=== PATIENT | male | born 1970 | race Caucasian/White ===

== ENCOUNTER 2021-12-24 05:46 | Day surgery (SDC) | payer BC, OTHER ==
[2021-12-24] MEDS ORDERED: Ringers Lactate 1,000 ML IV ONE (06:05)
[2021-12-24] MEDS ORDERED: Phenylephrine HCl 10 MG/ML 1 ML VIAL ONE (06:17)
[2021-12-24] MEDS ORDERED: GLYCOPYRROLATE 0.2 MG/ML SYR ONE (06:23)
[2021-12-24] MEDS: LIDOCAINE 4% TOP SOLUTION ONE ×2 (07:15→07:50)
[2021-12-24] MEDS ORDERED: LIDOCAINE VISCOUS 2% SOLN 15 ML UDC ONE (07:49)
[2021-12-24] MEDS ORDERED: LIDOCAINE 1% MPF 30 ML VIAL ONE (07:50)
[2021-12-24 08:12] VITALS: TEMP 97.4
--- NOTE | 2021-12-24 08:30 | P.OP ---
Date of Service: 12/24/21 (Diagnostic bronchoscopy for hemoptysis) Findings and Operative Technique Patient is a 51 years of age evaluated my office complaining chest x-ray did not show any lung mass hence the reason for bronchoscopy narrative report after obtaining informed consent from the patient he was premedicated as per anesthesia Findings normal vocal cords normal trachea normal [place] normal endobronchial anatomy no endobronchial lesions visible fact there was no blood visible in his entire respiratory tract none seen at the vocal cords are in the nasal area is likely he has had GI bleeding Discussed with the patient he is scheduled to see GI physician as soon as possible his paperwork has been completed no procedures have been done patient stable to be discharged
[2021-12-24 09:27] VITALS: BP 121/77; O2SAT 99
[2021-12-24] MEDS ORDERED: propofoL 200 MG/20 ML VIAL IV ONE ×2 (10:49)
[2021-12-24] MEDS ORDERED: MIDAZOLAM HCL 2 MG/2 ML INJ ONE (10:49)
[2021-12-24] MEDS ORDERED: LIDOCAINE 1% MPF 5 ML VIAL ONE (10:49)
[2021-12-24] MEDS ORDERED: FENTANYL CITR 100 MCG/2 ML ONE (10:49)
== END 2021-12-24 09:00 | disposition home or self-care (01) ==
LOC: OR 05:46
PROVIDERS: ATTEND Internal Medicine Sleep Medicine
PROC: 0BJ08ZZ Inspection of Tracheobronchial Tree, Via Natural or Artificial Opening Endoscopic (ICD-10-PCS; principal; 2021-12-24 08:00)
DX: R04.2 Hemoptysis (principal); I25.10 Atherosclerotic heart disease of native coronary artery without angina pectoris; Z20.822 Contact with and (suspected) exposure to COVID-19
CPT/HCPCS: 31622; U0003; J2704; J2370; J2250; J3010; J7120

== ENCOUNTER 2022-07-26 07:36 | Emergency (ER) | payer BC ==
--- OUTSIDE RECORDS SUMMARY | 2022-07-26 07:52 | XMS REPORT | Continuity of Care Document ---
:1970 Author Organization [facility] t Address [address] [place] [address] Care Team Providers Name Role Phone Roland Zapata MD Primary Care Physician DR ANICETO MATHEW Attending Clinician Unavailable DHARMESH RAZA Attending Clinician Unavailable [id number] Attending Clinician Unavailable Derian Whiteside MA Attending Clinician Unavailable Bryan Arias MA Attending Clinician Unavailable Libertad Jacobs Attending Clinician Unavailable Serina Mack Attending Clinician Unavailable Libertad Jacobs Attending Clinician [phone] LIBERTAD JACOBS Attending Clinician Unavailable LIBERTAD JACOBS Attending Clinician Unavailable IHDE_G Attending Clinician Unavailable Ольга Martin MA Attending Clinician Unavailable Eva Flores Attending Clinician Unavailable YUNG CONTEH Attending Clinician Unavailable Mili COREAS, Sharon Cedeno Attending Clinician EMILIANO PORTER Attending Clinician Unavailable PRATIK WINSTON Attending Clinician Unavailable DAVID PÉREZ Attending Clinician Unavailable NED RODRIGUEZ Attending Clinician Unavailable ALEX OCHOA Attending Clinician Unavailable Mirna_Palmer Attending Clinician Unavailable GILLIAN LOJA Attending Clinician Unavailable TIFFANIE NUGENT Attending Clinician Unavailable DARLIN PALMA Attending Clinician Unavailable ODALYS TERAN Attending Clinician Unavailable VICTOR MANUEL HA Attending Clinician Unavailable PRATIK WINSTON M.D., Paz CHRISTIE Attending Clinician UnaSEB Sanchez Attending Clinician Unavailable RANDY RAMIREZ Attending Clinician Unavailable LARA SARKAR Attending Clinician Unavailable MAURISIO OLIVER Attending Clinician Unavailable REKHA GALLAGHER Attending Clinician Unavailable GUSTAVO CAMEJO Attending Clinician Unavailable REKHA GALLAGHER Attending Clinician Unavailable YVETTE BERNAL Attending Clinician Unavailable TIFFANIE GO Attending Clinician Unavailable DR ANICETO MATHEW Admitting Clinician Unavailable [email or web address]_R Admitting Clinician Unavailable Serina Mack Admitting Clinician Unavailable KNOW, DOES_NOT Admitting Clinician Unavailable LIBERTAD JACOBS Admitting Clinician Unavailable IHDE_G Admitting Clinician Unavailable NED RODRIGUEZ Admitting Clinician Unavailable Mirna_Palmer Admitting Clinician Unavailable EMILIANO PORTER Admitting Clinician Unavailable DARLIN PALMA Admitting Clinician Unavailable PRATIK WINSTON M.D., PRATIK Admitting Clinician Unavailable Payers Payer Name Policy Type Policy Number Effective Date Expiration Date S jayne [facility]: BERTHA [id number] 2021 2022 ADVANTAGE (HMO) 00:00:00 00:00:00 [facility] [id number] Problems Condition Condition Condition Status Onset Resolution Last Treating Co mments Source Name Details Category Date Date Treatment Clinician Date Gout Gout Problem Active [facility] Contact Contact Problem Active [facility] No known No known Disease Metho di active active st problems problems Hospit a l Allergies, Adverse Reactions, Alerts Allergy Allergy Status Severity Reaction(s) Onset Inactive Treating Comm ents Source Name Type Date Date Clinician Sulfa DA Active SV ANAPHYLAXIS [facility] (Sulfona 04-30 [facility] 00[facility] allopuri DA Active [facility] COUGH [facility] nol [facility] bee DA Active [facility] ANAPHYLAXIS [facility] venom 04-30 [facility] protein 00:00[facility] (honey 00 Medical bee) Center Allopuri Propensi Active Cough Method i nol ty to 02-05 st adverse 00:00: Hospita reaction 00 l s to drug Bee Propensi Active Shortness Of Bee sting Methodi Sting ty to Breath 02-[address] Kit adverse 00:00: Closed Hospita reaction 00 throat l s to can't drug breath Sulfasal Propensi Active Other (See Throat Me th[facility] azine ty to Comments) 02-[address] adverse 00:00: Hospita reaction 00 l s to drug Allopuri Allergy Active [facility] SULFA Allergy Active [facility] (SULFONA to da MIDE substan Medical ANTIBIOT e Group ICS) BEE Allergy Active [facility] VENOM to da PROTEIN [facility] (HONEY e Group BEE) Social History Social Habit Start Date Stop Date Quantity Comments Source Tobacco use and 2022-02-05 2022-02-05 Smokeless tobacco [facility] exposure 00:00:00 [facility]:00:00 non-user Hospital Alcohol intake 2022-02-05 2022-02-05 [facility]drinker [facility] (finding) Sex Assigned At [birth year] [facility] 00[facility] Smoking Status Start Date Stop Date Source Never Smoker [facility] Ordered Filled Start Stop Current Ordering Indication Dosage Frequency Signature Comments Components Source Medication Medication Date Date Medication? Clinician (SIG) Name Name indomethaci indomethaci No indomethac [facility] n 50 mg n 50 mg 7-12 in 50 mg Medic al capsule capsule 00:00: capsule 00 indomethaci indomethaci No indomethac [facility] n 50 mg n 50 mg 7-12 in 50 mg Medic al capsule capsule 00:00: capsule 00 indomethaci indomethaci No indomethac [facility] n 50 mg n 50 mg 7-12 in 50 mg Medic al capsule capsule 00:00: capsule 00 atorvastati 2022-0 Yes 40mg QD 40 mg Metho di n (LIPITOR) 6-[address] 40 mg 11:15: Hospita tablet 48 l furosemide 2022-0 Yes 40mg QD 40 mg Method i (LASIX) 40 6-[address] mg tablet 11:15: Hospita 48 l isosorbide 2022-0 Yes 30mg QD 30 mg [facility] i mononitrate 6-[address] (IMDUR) 30 11:15: Hospita MG 24 hr 48 l tablet lisinopriL 2022-0 Yes 5mg QD 5 mg [facility] (PRINIVIL) 6-[address] 5 mg tablet 11:15: Hospit a 48 l PARoxetine 2022-0 Yes 20mg QD 20 mg Method i (PAXIL) 20 6-[address] MG tablet 11:15: morning. [facility] 48 l prasugreL 2022-0 Yes 10mg Q24H Take 10 mg Me [facility] (EFFIENT) 6-[address] 10 mg 11:15: daily. Hospita tablet 48 l temazepam 2022-0 Yes QD nightly as [facility] (RESTORIL) 6-[address] 15 mg 11:15: Hospita capsule 48 l atorvastati 2022-0 Yes 40mg QD 40 mg Metho di n (LIPITOR) 6-[address] 40 mg 11:15: Hospita tablet 48 l furosemide 2022-0 Yes 40mg QD 40 mg Method i (LASIX) 40 6-[address] mg tablet 11:15: Hospita 48 l isosorbide 2022-0 Yes 30mg QD 30 mg Method i mononitrate 6-[address] (IMDUR) 30 11:15: Hospita MG 24 hr 48 l tablet lisinopriL 2022-0 Yes 5mg QD 5 mg [facility] (PRINIVIL) 6-[address] 5 mg tablet 11:15: Hospit a 48 l PARoxetine 2022-0 Yes 20mg QD 20 mg Method i (PAXIL) 20 6-[address] MG tablet 11:15: morning. [facility] 48 l prasugreL 2022-0 Yes 10mg Q24H Take 10 mg [facility] (EFFIENT) 6-[address] 10 mg 11:15: daily. Hospita tablet 48 l temazepam 2022-0 Yes QD nightly as Me [facility] (RESTORIL) 6-[address] 15 mg 11:15: Hospita capsule 48 l atorvastati 2022-0 Yes 40mg QD 40 mg Metho di n (LIPITOR) 6-[address] 40 mg 11:15: Hospita tablet 48 l furosemide 2022-0 Yes 40mg QD 40 mg Method i (LASIX) 40 6-[address] mg tablet 11:15: Hospita 48 l isosorbide 2022-0 Yes 30mg QD 30 mg Method i mononitrate 6-[address] (IMDUR) 30 11:15: Hospita MG 24 hr 48 l tablet lisinopriL 2022-0 Yes 5mg QD 5 mg [facility] (PRINIVIL) 6-[address] 5 mg tablet 11:15: Hospit a 48 l PARoxetine 2022-0 Yes 20mg QD 20 mg Method i (PAXIL) 20 6-[address] MG tablet 11:15: morning. [facility] 48 l prasugreL 2022-0 Yes 10mg Q24H Take 10 mg Me [facility] (EFFIENT) 6-[address] 10 mg 11:15: daily. Hospita tablet 48 l temazepam 2022-0 Yes QD nightly as Me thodi (RESTORIL) 6-[address] 15 mg 11:15: Hospita capsule 48 l atorvastati 2022-0 Yes 40mg QD 40 mg Metho di n (LIPITOR) 6-[address] 40 mg 11:15: Hospita tablet 48 l furosemide 2022-0 Yes 40mg QD 40 mg Method i (LASIX) 40 6-[address] mg tablet 11:15: Hospita 48 l isosorbide 2022-0 Yes 30mg QD 30 mg Method i mononitrate 6-[address] (IMDUR) 30 11:15: Hospita MG 24 hr 48 l tablet lisinopriL 2022-0 Yes 5mg QD 5 mg [facility] (PRINIVIL) 6-[address] 5 mg tablet 11:15: Hospit a 48 l PARoxetine 2022-0 Yes 20mg QD 20 mg Method i (PAXIL) 20 6-[address] MG tablet 11:15: morning. [facility] 48 l prasugreL 2022-0 Yes 10mg Q24H Take 10 mg Me [facility] (EFFIENT) 6-[address] 10 mg 11:15: daily. Hospita tablet 48 l temazepam 2022-0 Yes QD nightly as Me th[facility] (RESTORIL) 6-[address] 15 mg 11:15: Hospita capsule 48 l atorvastati 2022-0 Yes 40mg QD 40 mg Metho di n (LIPITOR) 6-[address] 40 mg 11:15: Hospita tablet 48 l furosemide 2022-0 Yes 40mg QD 40 mg Method i (LASIX) 40 6-[address] mg tablet 11:15: Hospita 48 l isosorbide 2022-0 Yes 30mg QD 30 mg Method i mononitrate 6-[address] (IMDUR) 30 11:15: Hospita MG 24 hr 48 l tablet lisinopriL 2-0 Yes 5mg QD 5 mg Methodi (PRINIVIL) 6-[address] 5 mg tablet 11:15: Hospit a 48 l PARoxetine 2-0 Yes 20mg QD 20 mg Method i (PAXIL) 20 6-[address] MG tablet 11:15: morning. [facility] 48 l prasugreL 2022-0 Yes 10mg Q24H Take 10 mg Me [facility] (EFFIENT) 6-[address] 10 mg 11:15: daily. Hospita tablet 48 l temazepam 2022-0 Yes QD nightly as [facility] (RESTORIL) 6-[address] 15 mg 11:15: Hospita capsule 48 l nitroglycer 2-0 Yes .4mg 0.4 mg Meth alok in 02-[address] (NITROSTAT) 00:00: (five) [facility] 0.4 MG SL 00 minutes as l tablet needed. ranolazine 2022-0 Yes 500mg QD 500 mg Meth alok (RANEXA) 6-[address] 500 MG 12 00:00: Hospita hr ER 00 l tablet nitroglycer 2-0 Yes .4mg 0.4 mg Meth alok in 02-[address] (NITROSTAT) 00:00: (five) [facility] 0.4 MG SL 00 minutes as l tablet needed. ranolazine 2022-0 Yes 500mg QD 500 mg Meth alok (RANEXA) 6-[address] 500 MG 12 00:00: Hospita hr ER 00 l tablet nitroglycer 2-0 Yes .4mg 0.4 mg Meth alok in 02-[address] (NITROSTAT) 00:00: (five) [facility] 0.4 MG SL 00 minutes as l tablet needed. ranolazine 2-0 Yes 500mg QD 500 mg Meth alok (RANEXA) 02-[address] 500 MG 12 00:00: Hospita hr ER 00 l tablet nitroglycer 2-0 Yes .4mg 0.4 mg Meth alok in 02-[address] (NITROSTAT) 00:00: (five) [facility] 0.4 MG SL 00 minutes as l tablet needed. ranolazine 2-0 Yes 500mg QD 500 mg Meth alok (RANEXA) 02-[address] 500 MG 12 00:00: Hospita hr ER 00 l tablet nitroglycer 2-0 Yes .4mg 0.4 mg Meth alok in 02-[address] (NITROSTAT) 00:00: (five) [facility] 0.4 MG SL 00 minutes as l tablet needed. ranolazine 2-0 Yes 500mg QD 500 mg Meth alok (RANEXA) 02-[address] 500 MG 12 00:00: Hospita hr ER 00 l tablet clindamycin 2-0 Yes 300mg QD 300 mg Met hodi (CLEOCIN) 5-[address] 300 MG 00:00: Hospita capsule 00 l clindamycin 2-0 Yes 300mg QD 300 mg Met hodi (CLEOCIN) 5-[address] 300 MG 00:00: Hospita capsule 00 l clindamycin 2-0 Yes 300mg QD 300 mg Met hodi (CLEOCIN) 5-[address] 300 MG 00:00: Hospita capsule 00 l clindamycin 2-0 Yes 300mg QD 300 mg Met hodi (CLEOCIN) 5-[address] 300 MG 00:00: Hospita capsule 00 l clindamycin 2-0 Yes 300mg QD 300 mg Met hodi (CLEOCIN) 5-[address] 300 MG 00:00: Hospita capsule 00 l traMADol-ac 2022-0 Yes Q8H every 8 Met hodi etaminophen 3-23 (eight) st (ULTRACET) 00:00: hours as Hos tan 37.5-325 mg 00 needed. l per tablet traMADol-ac 2021-0 Yes Q8H every 8 Met hodi etaminophen 3-23 (eight) st (ULTRACET) 00:00: hours as Hos tan 37.5-325 mg 00 needed. l per tablet traMADol-ac 2021-0 Yes Q8H every 8 Met hodi etaminophen 3-23 (eight) st (ULTRACET) 00:00: hours as Hos tan 37.5-325 mg 00 needed. l per tablet traMADol-ac 2021-0 Yes Q8H every 8 Met hodi etaminophen 3-23 (eight) st (ULTRACET) 00:00: hours as Hos tan 37.5-325 mg 00 needed. l per tablet traMADol-ac 2021-0 Yes Q8H every 8 Met hodi etaminophen 3-23 (eight) st (ULTRACET) 00:00: hours as Hos tan 37.5-325 mg 00 needed. l per tablet nebivolol nebivolol No 1 Q1D nebivolol [facility] 10 mg 10 mg 10 mg Medical tablet Take tablet Take tablet 1 tablet 1 tablet Take 1 every day every day tablet by oral by oral every day route. route. by oral route. paroxetine paroxetine No 1 Q1D paroxetine [facility] 20 mg 20 mg 20 mg Medical tablet Take tablet Take tablet 1 tablet 1 tablet Take 1 every day every day tablet by oral by oral every day route. route. by oral route. prasugrel prasugrel No 1 Q1D prasugrel [facility] 10 mg 10 mg 10 mg Medical tablet Take tablet Take tablet 1 tablet 1 tablet Take 1 every day every day tablet by oral by oral every day route. route. by oral route. temazepam temazepam No 1capsul Q1D temazepam [facility] 15 mg 15 mg e(s) 15 mg Medical capsule capsule capsule Take 1 Take 1 Take 1 capsule capsule capsule every day every day every day by oral by oral by oral route. route. route. Afrin Afrin No 2spray( BID Afrin [facility] (oxymetazol (oxymetazol s) (oxymetazo Medical ine) 0.05 % ine) 0.05 % line) 0.05 nasal spray nasal spray % nasal [place] 2 [place] 2 spray sprays sprays [place] 2 twice a day twice a day sprays by by twice a intranasal intranasal day by route. route. intranasal route. atorvastati atorvastati No atorvastat [facility] n 80 mg n 80 mg in 80 mg Medic al tablet tablet tablet cetirizine cetirizine No 1 Q1D cetirizine [facility] 10 mg 10 mg 10 mg Medical tablet Take tablet Take tablet 1 tablet 1 tablet Take 1 every day every day tablet by oral by oral every day route. route. by oral route. famotidine famotidine No 1 BID famotidine [facility] 20 mg 20 mg 20 mg Medical tablet Take tablet Take tablet 1 tablet 1 tablet Take 1 twice a day twice a day tablet by oral by oral twice a route. route. day by oral route. furosemide furosemide No 1 Q1D furosemide [facility] 40 mg 40 mg 40 mg Medical tablet Take tablet Take tablet 1 tablet 1 tablet Take 1 every day every day tablet by oral by oral every day route. route. by oral route. isosorbide isosorbide No isosorbide [facility] mononitrate mononitrate mononitrat Medical ER 30 mg ER 30 mg e ER 30 mg tablet,exte tablet,exte tablet,ext nded nded ended release 24 release 24 release 24 hr hr hr lisinopril lisinopril No lisinopril [facility] 5 mg tablet 5 mg tablet 5 mg M edical tablet montelukast montelukast No 1 Q1D montelukas [facility] 10 mg 10 mg t 10 mg Medical tablet Take tablet Take tablet 1 tablet 1 tablet Take 1 every day every day tablet by oral by oral every day route. route. by oral route. nebivolol nebivolol No 1 Q1D nebivolol [facility] 10 mg 10 mg 10 mg Medical tablet Take tablet Take tablet 1 tablet 1 tablet Take 1 every day every day tablet by oral by oral every day route. route. by oral route. paroxetine paroxetine No 1 Q1D paroxetine [facility] 20 mg 20 mg 20 mg Medical tablet Take tablet Take tablet 1 tablet 1 tablet Take 1 every day every day tablet by oral by oral every day route. route. by oral route. prasugrel prasugrel No 1 Q1D prasugrel [facility] 10 mg 10 mg 10 mg Medical tablet Take tablet Take tablet 1 tablet 1 tablet Take 1 every day every day tablet by oral by oral every day route. route. by oral route. temazepam temazepam No 1capsul Q1D temazepam [facility] 15 mg 15 mg e(s) 15 mg Medical capsule capsule capsule Take 1 Take 1 Take 1 capsule capsule capsule every day every day every day by oral by oral by oral route. route. route. Trelegy Trelegy No 1puff(s Q1D Trelegy Naomi via Ellipta 100 Ellipta 100 ) [facility] mcg-62.5 mcg-62.5 100 mcg-25 mcg mcg-25 mcg mcg-62.5 powder for powder for mcg-25 mcg inhalation inhalation powder for Inhale 1 Inhale 1 inhalation puff every puff every Inhale 1 day by day by puff every inhalation inhalation day by route. route. inhalation route. Afrin Afrin No 2spray( BID Afrin [facility] (oxymetazol (oxymetazol s) (oxymetazo Medical ine) 0.05 % ine) 0.05 % line) 0.05 nasal spray nasal spray % nasal [place] 2 [place] 2 spray sprays sprays [place] 2 twice a day twice a day sprays by by twice a intranasal intranasal day by route. route. intranasal route. atorvastati atorvastati No atorvastat [facility] n 80 mg n 80 mg in 80 mg Medic al tablet tablet tablet cetirizine cetirizine No 1 Q1D cetirizine [facility] 10 mg 10 mg 10 mg Medical tablet Take tablet Take tablet 1 tablet 1 tablet Take 1 every day every day tablet by oral by oral every day route. route. by oral route. famotidine famotidine No 1 BID famotidine [facility] 20 mg 20 mg 20 mg Medical tablet Take tablet Take tablet 1 tablet 1 tablet Take 1 twice a day twice a day tablet by oral by oral twice a route. route. day by oral route. furosemide furosemide No 1 Q1D furosemide [facility] 40 mg 40 mg 40 mg Medical tablet Take tablet Take tablet 1 tablet 1 tablet Take 1 every day every day tablet by oral by oral every day route. route. by oral route. isosorbide isosorbide No isosorbide [facility] mononitrate mononitrate mononitrat Medical ER 30 mg ER 30 mg e ER 30 mg tablet,exte tablet,exte tablet,ext nded nded ended release 24 release 24 release 24 hr hr hr lisinopril lisinopril No lisinopril [facility] 5 mg tablet 5 mg tablet 5 mg M edical tablet montelukast montelukast No 1 Q1D montelukas [facility] 10 mg 10 mg t 10 mg Medical tablet Take tablet Take tablet 1 tablet 1 tablet Take 1 every day every day tablet by oral by oral every day route. route. by oral route. nebivolol nebivolol No 1 Q1D nebivolol [facility] 10 mg 10 mg 10 mg Medical tablet Take tablet Take tablet 1 tablet 1 tablet Take 1 every day every day tablet by oral by oral every day route. route. by oral route. paroxetine paroxetine No 1 Q1D paroxetine [facility] 20 mg 20 mg 20 mg Medical tablet Take tablet Take tablet 1 tablet 1 tablet Take 1 every day every day tablet by oral by oral every day route. route. by oral route. prasugrel prasugrel No 1 Q1D prasugrel [facility] 10 mg 10 mg 10 mg Medical tablet Take tablet Take tablet 1 tablet 1 tablet Take 1 every day every day tablet by oral by oral every day route. route. by oral route. temazepam temazepam No 1capsul Q1D temazepam [facility] 15 mg 15 mg e(s) 15 mg Medical capsule capsule capsule Take 1 Take 1 Take 1 capsule capsule capsule every day every day every day by oral by oral by oral route. route. route. Trelegy Trelegy No Trelegy [facility] Ellipta 100 Ell[facility]a 100 [facility] mcg-62.5 mcg-62.5 100 mcg-25 mcg mcg-25 mcg mcg-62.5 powder for powder for mcg-25 mcg inhalation inhalation powder for Inhale 1 Inhale 1 inhalation puff every puff every Inhale 1 day by day by puff every inhalation inhalation day by route. route. inhalation route. Afrin Afrin No 2spray( BID Afrin [facility] (oxymetazol (oxymetazol s) (oxymetazo Medical ine) 0.05 % ine) 0.05 % line) 0.05 nasal spray nasal spray % nasal [place] 2 [place] 2 spray sprays sprays [place] 2 twice a day twice a day sprays by by twice a intranasal intranasal day by route. route. intranasal route. atorvastati atorvastati No atorvastat [facility] n 80 mg n 80 mg in 80 mg Medic al tablet tablet tablet cetirizine cetirizine No 1 Q1D cetirizine [facility] 10 mg 10 mg 10 mg Medical tablet Take tablet Take tablet 1 tablet 1 tablet Take 1 every day every day tablet by oral by oral every day route. route. by oral route. colchicine colchicine No colchicine [facility] 0.6 mg 0.6 mg 0.6 mg Medical tablet tablet tablet famotidine famotidine No 1 BID famotidine [facility] 20 mg 20 mg 20 mg Medical tablet Take tablet Take tablet 1 tablet 1 tablet Take 1 twice a day twice a day tablet by oral by oral twice a route. route. day by oral route. furosemide furosemide No 1 Q1D furosemide [facility] 40 mg 40 mg 40 mg Medical tablet Take tablet Take tablet 1 tablet 1 tablet Take 1 every day every day tablet by oral by oral every day route. route. by oral route. indomethaci indomethaci No indomethac [facility] n 50 mg n 50 mg in 50 mg Medic al capsule capsule capsule isosorbide isosorbide No isosorbide [facility] mononitrate mononitrate mononitrat Medical ER 30 mg ER 30 mg e ER 30 mg tablet,exte tablet,exte tablet,ext nded nded ended release 24 release 24 release 24 hr hr hr levofloxaci levofloxaci No levofloxac [facility] n 500 mg n 500 mg in 500 mg Me dical tablet tablet tablet lisinopril lisinopril No lisinopril [facility] 5 mg tablet 5 mg tablet 5 mg M edical tablet Lunesta 2 Lunesta 2 No 1 Q1D Lunesta 2 [facility] mg tablet mg tablet mg tablet Medical Take 1 Take 1 Take 1 tablet tablet tablet every day every day every day by oral by oral by oral route. route. route. montelukast montelukast No montelukas [facility] 10 mg 10 mg t 10 mg Medical tablet Take tablet Take tablet 1 tablet 1 tablet Take 1 every day every day tablet by oral by oral every day route. route. by oral route. nebivolol nebivolol No 1 Q1D nebivolol [facility] 10 mg 10 mg 10 mg Medical tablet Take tablet Take tablet 1 tablet 1 tablet Take 1 every day every day tablet by oral by oral every day route. route. by oral route. paroxetine paroxetine No 1 Q1D paroxetine [facility] 20 mg 20 mg 20 mg Medical tablet Take tablet Take tablet 1 tablet 1 tablet Take 1 every day every day tablet by oral by oral every day route. route. by oral route. prasugrel prasugrel No 1 Q1D prasugrel [facility] 10 mg 10 mg 10 mg Medical tablet Take tablet Take tablet 1 tablet 1 tablet Take 1 every day every day tablet by oral by oral every day route. route. by oral route. temazepam temazepam No 1capsul Q1D temazepam [facility] 15 mg 15 mg e(s) 15 mg Medical capsule capsule capsule Take 1 Take 1 Take 1 capsule capsule capsule every day every day every day by oral by oral by oral route. route. route. Trelegy Trelegy No Trelegy [facility] Ellipta 100 Ell[facility]a 100 [facility] mcg-62.5 mcg-62.5 100 mcg-25 mcg mcg-25 mcg mcg-62.5 powder for powder for mcg-25 mcg inhalation inhalation powder for Inhale 1 Inhale 1 inhalation puff every puff every Inhale 1 day by day by puff every inhalation inhalation day by route. route. inhalation route. Afrin Afrin No 2spray( BID Afrin [facility] (oxymetazol (oxymetazol s) (oxymetazo Medical ine) 0.05 % ine) 0.05 % line) 0.05 nasal spray nasal spray % nasal [place] 2 [place] 2 spray sprays sprays [place] 2 twice a day twice a day sprays by by twice a intranasal intranasal day by route. route. intranasal route. atorvastati atorvastati No atorvastat [facility] n 80 mg n 80 mg in 80 mg Medic al tablet tablet tablet cetirizine cetirizine No 1 Q1D cetirizine [facility] 10 mg 10 mg 10 mg Medical tablet Take tablet Take tablet 1 tablet 1 tablet Take 1 every day every day tablet by oral by oral every day route. route. by oral route. famotidine famotidine No 1 BID famotidine [facility] 20 mg 20 mg 20 mg Medical tablet Take tablet Take tablet 1 tablet 1 tablet Take 1 twice a day twice a day tablet by oral by oral twice a route. route. day by oral route. furosemide furosemide No 1 Q1D furosemide [facility] 40 mg 40 mg 40 mg Medical tablet Take tablet Take tablet 1 tablet 1 tablet Take 1 every day every day tablet by oral by oral every day route. route. by oral route. indomethaci indomethaci No indomethac [facility] n 50 mg n 50 mg in 50 mg Medic al capsule capsule capsule isosorbide isosorbide No isosorbide [facility] mononitrate mononitrate mononitrat Medical ER 30 mg ER 30 mg e ER 30 mg tablet,exte tablet,exte tablet,ext nded nded ended release 24 release 24 release 24 hr hr hr lisinopril lisinopril No lisinopril [facility] 5 mg tablet 5 mg tablet 5 mg M edical tablet Lunesta 2 Lunesta 2 No 1 Q1D Lunesta 2 [facility] mg tablet mg tablet mg tablet Medical Take 1 Take 1 Take 1 tablet tablet tablet every day every day every day by oral by oral by oral route. route. route. montelukast montelukast No 1 Q1D montelukas [facility] 10 mg 10 mg t 10 mg Medical tablet Take tablet Take tablet 1 tablet 1 tablet Take 1 every day every day tablet by oral by oral every day route. route. by oral route. nebivolol nebivolol No 1 Q1D nebivolol [facility] 10 mg 10 mg 10 mg Medical tablet Take tablet Take tablet 1 tablet 1 tablet Take 1 every day every day tablet by oral by oral every day route. route. by oral route. paroxetine paroxetine No 1 Q1D paroxetine [facility] 20 mg 20 mg 20 mg Medical tablet Take tablet Take tablet 1 tablet 1 tablet Take 1 every day every day tablet by oral by oral every day route. route. by oral route. prasugrel prasugrel No 1 Q1D prasugrel [facility] 10 mg 10 mg 10 mg Medical tablet Take tablet Take tablet 1 tablet 1 tablet Take 1 every day every day tablet by oral by oral every day route. route. by oral route. temazepam temazepam No 1capsul Q1D temazepam [facility] 15 mg 15 mg e(s) 15 mg Medical capsule capsule capsule Take 1 Take 1 Take 1 capsule capsule capsule every day every day every day by oral by oral by oral route. route. route. Trelegy Trelegy No Trelegy [facility] Ellipta 100 Ell[facility]a 100 [facility] mcg-62.5 mcg-62.5 100 mcg-25 mcg mcg-25 mcg mcg-62.5 powder for powder for mcg-25 mcg inhalation inhalation powder for Inhale 1 Inhale 1 inhalation puff every puff every Inhale 1 day by day by puff every inhalation inhalation day by route. route. inhalation route. Afrin Afrin No 2spray( BID Afrin [facility] (oxymetazol (oxymetazol s) (oxymetazo Medical ine) 0.05 % ine) 0.05 % line) 0.05 nasal spray nasal spray % nasal [place] 2 [place] 2 spray sprays sprays [place] 2 twice a day twice a day sprays by by twice a intranasal intranasal day by route. route. intranasal route. atorvastati atorvastati No atorvastat [facility] n 80 mg n 80 mg in 80 mg Medic al tablet tablet tablet cetirizine cetirizine No 1 Q1D cetirizine [facility] 10 mg 10 mg 10 mg Medical tablet Take tablet Take tablet 1 tablet 1 tablet Take 1 every day every day tablet by oral by oral every day route. route. by oral route. famotidine famotidine No 1 BID famotidine [facility] 20 mg 20 mg 20 mg Medical tablet Take tablet Take tablet 1 tablet 1 tablet Take 1 twice a day twice a day tablet by oral by oral twice a route. route. day by oral route. furosemide furosemide No 1 Q1D furosemide [facility] 40 mg 40 mg 40 mg [facility] tablet Take tablet Take tablet 1 tablet 1 tablet Take 1 every day every day tablet by oral by oral every day route. route. by oral route. indomethaci indomethaci No indomethac [facility] n 50 mg n 50 mg in 50 mg Medic al capsule capsule capsule isosorbide isosorbide No isosorbide [facility] mononitrate mononitrate mononitrat Medical ER 30 mg ER 30 mg e ER 30 mg tablet,exte tablet,exte tablet,ext nded nded ended release 24 release 24 release 24 hr hr hr lisinopril lisinopril No lisinopril [facility] 5 mg tablet 5 mg tablet 5 mg M edical tablet Lunesta 2 Lunesta 2 No 1 Q1D Lunesta 2 [facility] mg tablet mg tablet mg tablet Medical Take 1 Take 1 Take 1 tablet tablet tablet every day every day every day by oral by oral by oral route. route. route. montelukast montelukast No 1 Q1D montelukas [facility] 10 mg 10 mg t 10 mg Medical tablet Take tablet Take tablet 1 tablet 1 tablet Take 1 every day every day tablet by oral by oral every day route. route. by oral route. nebivolol nebivolol No 1 Q1D nebivolol [facility] 10 mg 10 mg 10 mg Medical tablet Take tablet Take tablet 1 tablet 1 tablet Take 1 every day every day tablet by oral by oral every day route. route. by oral route. paroxetine paroxetine No 1 Q1D paroxetine [facility] 20 mg 20 mg 20 mg [facility] tablet Take tablet Take tablet 1 tablet 1 tablet Take 1 every day every day tablet by oral by oral every day route. route. by oral route. prasugrel prasugrel No 1 Q1D prasugrel [facility] 10 mg 10 mg 10 mg Medical tablet Take tablet Take tablet 1 tablet 1 tablet Take 1 every day every day tablet by oral by oral every day route. route. by oral route. temazepam temazepam No 1capsul Q1D temazepam [facility] 15 mg 15 mg e(s) 15 mg Medical capsule capsule capsule Take 1 Take 1 Take 1 capsule capsule capsule every day every day every day by oral by oral by oral route. route. route. Trelegy Trelegy No Trelegy [facility] Ellipta 100 Ellipta 100 Ellipta Medical mcg-62.5 mcg-62.5 100 mcg-25 mcg mcg-25 mcg mcg-62.5 powder for powder for mcg-25 mcg inhalation inhalation powder for Inhale 1 Inhale 1 inhalation puff every puff every Inhale 1 day by day by puff every inhalation inhalation day by route. route. inhalation route. Afrin Afrin No 2spray( BID Afrin [facility] (oxymetazol (oxymetazol s) (oxymetazo Medical ine) 0.05 % ine) 0.05 % line) 0.05 nasal spray nasal spray % nasal [place] 2 [place] 2 spray sprays sprays [place] 2 twice a day twice a day sprays by by twice a intranasal intranasal day by route. route. intranasal route. atorvastati atorvastati No atorvastat [facility] n 80 mg n 80 mg in 80 mg Medic al tablet tablet tablet cetirizine cetirizine No 1 Q1D cetirizine [facility] 10 mg 10 mg 10 mg Medical tablet Take tablet Take tablet 1 tablet 1 tablet Take 1 every day every day tablet by oral by oral every day route. route. by oral route. famotidine famotidine No 1 BID famotidine [facility] 20 mg 20 mg 20 mg [facility] tablet Take tablet Take tablet 1 tablet 1 tablet Take 1 twice a day twice a day tablet by oral by oral twice a route. route. day by oral route. furosemide furosemide No 1 Q1D furosemide [facility] 40 mg 40 mg 40 mg [facility] tablet Take tablet Take tablet 1 tablet 1 tablet Take 1 every day every day tablet by oral by oral every day route. route. by oral route. isosorbide isosorbide No isosorbide [facility] mononitrate mononitrate mononitrat Medical ER 30 mg ER 30 mg e ER 30 mg tablet,exte tablet,exte tablet,ext nded nded ended release 24 release 24 release 24 hr hr hr lisinopril lisinopril No lisinopril [facility] 5 mg tablet 5 mg tablet 5 mg M edical tablet montelukast montelukast No 1 Q1D montelukas [facility] 10 mg 10 mg t 10 mg Medical tablet Take tablet Take tablet 1 tablet 1 tablet Take 1 every day every day tablet by oral by oral every day route. route. by oral route. atorvastati atorvastati No atorvastat [facility] n 80 mg n 80 mg in 80 mg da tablet tablet tablet Medical Group furosemide furosemide No 1 Q1D furosemide [facility] 40 mg 40 mg 40 mg da tablet Take tablet Take tablet Medical 1 tablet 1 tablet Take 1 Group every day every day tablet by oral by oral every day route. route. by oral route. isosorbide isosorbide No isosorbide [facility] mononitrate mononitrate mononitrat da ER 30 mg ER 30 mg e ER 30 mg M edical tablet,exte tablet,exte tablet,ext Group nded nded ended release 24 release 24 release 24 hr Take 1 hr Take 1 hr Take 1 tablet tablet tablet every day every day every day by oral by oral by oral route. route. route. lisinopril lisinopril No lisinopril [facility] 5 mg tablet 5 mg tablet 5 mg d a Take 1 Take 1 tablet Medical tablet tablet Take 1 Group every day every day tablet by oral by oral every day route. route. by oral route. montelukast montelukast No montelukas [facility] 10 mg 10 mg t 10 mg da tablet tablet tablet Medical Group nebivolol nebivolol No 1 Q1D nebivolol [facility] 10 mg 10 mg 10 mg da tablet Take tablet Take tablet Medical 1 tablet 1 tablet Take 1 Group every day every day tablet by oral by oral every day route. route. by oral route. nitroglycer nitroglycer No nitroglyce [facility] in 0.4 mg in 0.4 mg rin 0.4 mg da sublingual sublingual sublingual Medical tablet tablet tablet Group paroxetine paroxetine No 1 Q1D paroxetine [facility] 20 mg 20 mg 20 mg da tablet Take tablet Take tablet Medical 1 tablet 1 tablet Take 1 Group every day every day tablet by oral by oral every day route. route. by oral route. prasugrel prasugrel No 1 Q1D prasugrel [facility] 10 mg 10 mg 10 mg da tablet Take tablet Take tablet Medical 1 tablet 1 tablet Take 1 Group every day every day tablet by oral by oral every day route. route. by oral route. ranolazine ranolazine No ranolazine [facility] ER 500 mg ER 500 mg ER 500 mg da tablet,exte tablet,exte tablet,ext Medical nded nded ended Group release,12 release,12 release,12 hr hr hr temazepam temazepam No 1capsul Q1D temazepam [facility] 15 mg 15 mg e(s) 15 mg da capsule capsule capsule Medica l Take 1 Take 1 Take 1 Group capsule capsule capsule every day every day every day by oral by oral by oral route. route. route. Xarelto 20 Xarelto 20 No Xarelto 20 [facility] mg tablet mg tablet mg tablet da on Hold on Hold on Hold Medica l Group Vital Signs Vital Name Observation Time Observation Value Comments Source BP Diastolic 2022-05-07 00:00:00 82 mm[Hg] Jett Sheffield [facility] Height 2022-05-07 00:00:00 74 [in_i] Jett [facility] BMI (Body Mass 2022-05-07 00:00:00 30.2 kg/m2 [facility] Medical Index) BP Systolic 2022-05-07 00:00:00 147 mm[Hg] Jett longo Body Weight 2022-05-07 00:00:00 3766 [oz_av] Jett Sheffield [facility] BP Diastolic 2022-04-09 00:00:00 80 mm[Hg] Jett Sheffield [facility] Height 2022-04-09 00:00:00 74 [in_i] Jett Sheffield [facility] BMI (Body Mass 2022-04-09 00:00:00 30.1 kg/m2 [facility] Medical Index) BP Systolic 2022-04-09 00:00:00 129 mm[Hg] Jett Sheffield ed[facility] Body Weight 2022-04-09 00:00:00 3752 [oz_av] Jett Sheffield ed[facility] BP Diastolic 2022-03-11 00:00:00 76 mm[Hg] Jett Sheffield edical Height 2022-03-11 00:00:00 74 [in_i] Jett Sheffield edical BMI (Body Mass 2022-03-11 00:00:00 29.3 kg/m2 [facility] Medical Index) BP Systolic 2022-03-11 00:00:00 122 mm[Hg] Jett Sheffield ed[facility] Body Weight 2022-03-11 00:00:00 3656 [oz_av] Jett Sheffield ed[facility] BP Diastolic 2022-02-18 00:00:00 88 mm[Hg] [facility] Height 2022-02-18 00:00:00 74 [in_i] [facility] BMI (Body Mass 2022-02-18 00:00:00 30 kg/m2 [facility] Medical Index) Group BP Systolic 2022-02-18 00:00:00 139 mm[Hg] [facility] Body Weight 2022-02-18 00:00:00 234 [lb_av] [facility] BP Diastolic 2022-02-17 00:00:00 73 mm[Hg] Jett Sheffield ed[facility] Height 2022-02-17 00:00:00 74 [in_i] Jett Sheffield ed[facility] BMI (Body Mass 2022-02-17 00:00:00 29.4 kg/m2 [facility] Medical Index) BP Systolic 2022-02-17 00:00:00 126 mm[Hg] Jett Sheffield ed[facility] Body Weight 2022-02-17 00:00:00 3666 [oz_av] Jett Sheffield ed[facility] BP Diastolic 2022-02-12 00:00:00 68 mm[Hg] [facility] Height 2022-02-12 00:00:00 74 [in_i] [facility] BMI (Body Mass 2022-02-12 00:00:00 29.8 kg/m2 [facility] Medical Index) Group BP Systolic 2022-02-12 00:00:00 120 mm[Hg] [facility] Body Weight 2022-02-12 00:00:00 232 [lb_av] [facility] BP Diastolic 2022-01-06 00:00:00 66 mm[Hg] [facility] Height 2022-01-06 00:00:00 74 [in_i] [facility] BMI (Body Mass 2022-01-06 00:00:00 29.9 kg/m2 [facility] Medical Index) Group BP Systolic 2022-01-06 00:00:00 118 mm[Hg] [facility] Body Weight 2022-01-06 00:00:00 233 [lb_av] [facility] BP Diastolic 2021-03-04 00:00:00 76 mm[Hg] [facility] Height 2021-03-04 00:00:00 74 [in_i] [facility] BMI (Body Mass 2021-03-04 00:00:00 30.8 kg/m2 [facility] Medical Index) Group BP Systolic 2021-03-04 00:00:00 126 mm[Hg] [facility] Body Weight 2021-03-04 00:00:00 240 [lb_av] [facility] BP Diastolic 2021-02-20 00:00:00 70 mm[Hg] [facility] Height 2021-02-20 00:00:00 74 [in_i] [facility] BMI (Body Mass 2021-02-20 00:00:00 30.9 kg/m2 [facility] Medical Index) Group BP Systolic 2021-02-20 00:00:00 130 mm[Hg] [facility] Body Weight 2021-02-20 00:00:00 240.8 [lb_av] [facility] BP Diastolic 2020-10-18 00:00:00 76 mm[Hg] [facility] Height 2020-10-18 00:00:00 74 [in_i] [facility] BMI (Body Mass 2020-10-18 00:00:00 30.4 kg/m2 [facility] [employer] [facility] [facility] Index) Group BP Systolic 2020-10-18 00:00:00 138 mm[Hg] [facility] Body Weight 2020-10-18 00:00:00 3792 [oz_av] [facility] BP Diastolic 2020-04-11 00:00:00 70 mm[Hg] [facility] Height 2020-04-11 00:00:00 74 [in_i] [facility] BMI (Body Mass 2020-04-11 00:00:00 31.4 kg/m2 [facility] [facility] Index) Group BP Systolic 2020-04-11 00:00:00 115 mm[Hg] [facility] Body Weight 2020-04-11 00:00:00 3910.4 [oz_av] [facility] BP Diastolic 2020-03-21 00:00:00 68 mm[Hg] [facility] Height 2020-03-21 00:00:00 74 [in_i] [facility] BMI (Body Mass 2020-03-21 00:00:00 30.7 kg/m2 [facility] Index) Group BP Systolic 2020-03-21 00:00:00 133 mm[Hg] [facility] Body Weight 2020-03-21 00:00:00 239 [lb_av] [facility] BP Diastolic 2020-01-25 00:00:00 70 mm[Hg] [facility] Height 2020-01-25 00:00:00 74 [in_i] [facility] BMI (Body Mass 2020-01-25 00:00:00 30.4 kg/m2 [facility] Index) Group BP Systolic 2020-01-25 00:00:00 136 mm[Hg] [facility] Body Weight 2020-01-25 00:00:00 236.9 [lb_av] [facility] BP Diastolic 2019-08-29 00:00:00 68 mm[Hg] [facility] Height 2019-08-29 00:00:00 74 [in_i] [facility] BMI (Body Mass 2019-08-29 00:00:00 28 kg/m2 [facility] Index) Group BP Systolic 2019-08-29 00:00:00 132 mm[Hg] [facility] Body Weight 2019-08-29 00:00:00 218 [lb_av] [facility] BP Diastolic 2019-07-04 00:00:00 69 mm[Hg] [facility] Height 2019-07-04 00:00:00 74 [in_i] [facility] BMI (Body Mass 2019-07-04 00:00:00 28 kg/m2 [facility] Medical Index) Group BP Systolic 2019-07-04 00:00:00 125 mm[Hg] [facility] Body Weight 2019-07-04 00:00:00 218 [lb_av] [facility] BP Diastolic 2019-05-09 00:00:00 72 mm[Hg] [facility] Height 2019-05-09 00:00:00 74 [in_i] [facility] BMI (Body Mass 2019-05-09 00:00:00 29.7 kg/m2 [facility] Medical Index) Group BP Systolic 2019-05-09 00:00:00 134 mm[Hg] [facility] Body Weight 2019-05-09 00:00:00 231 [lb_av] [facility] BP Diastolic 2019-04-13 00:00:00 68 mm[Hg] [facility] Height 2019-04-13 00:00:00 74 [in_i] [facility] BMI (Body Mass 2019-04-13 00:00:00 32.4 kg/m2 [facility] Medical Index) Group BP Systolic 2019-04-13 00:00:00 136 mm[Hg] [facility] Body Weight 2019-04-13 00:00:00 252 [lb_av] [facility] BP Diastolic 2019-04-06 00:00:00 82 mm[Hg] [facility] Height 2019-04-06 00:00:00 74 [in_i] [facility] BMI (Body Mass 2019-04-06 00:00:00 32.5 kg/m2 [facility] Medical Index) Group BP Systolic 2019-04-06 00:00:00 138 mm[Hg] [facility] Body Weight 2019-04-06 00:00:00 253 [lb_av] [facility] BP Diastolic 2019-03-14 00:00:00 89 mm[Hg] [facility] Height 2019-03-14 00:00:00 74 [in_i] [facility] BMI (Body Mass 2019-03-14 00:00:00 32.6 kg/m2 [facility] [employer] Medical Index) Group BP Systolic 2019-03-14 00:00:00 136 mm[Hg] [facility] Body Weight 2019-03-14 00:00:00 253.98 [lb_av] [facility] BP Diastolic 2019-02-14 00:00:00 90 mm[Hg] [facility] Height 2019-02-14 00:00:00 74 [in_i] [facility] BMI (Body Mass 2019-02-14 00:00:00 32.7 kg/m2 [facility] [employer] Medical Index) Group BP Systolic 2019-02-14 00:00:00 135 mm[Hg] [facility] Body Weight 2019-02-14 00:00:00 4071 [oz_av] [facility] BP Diastolic 2019-02-07 00:00:00 93 mm[Hg] [facility] Height 2019-02-07 00:00:00 74 [in_i] [facility] BMI (Body Mass 2019-02-07 00:00:00 32 kg/m2 [facility] [employer] Medical Index) Group BP Systolic 2019-02-07 00:00:00 145 mm[Hg] [facility] Body Weight 2019-02-07 00:00:00 249.3 [lb_av] [facility] Heart rate 2022-02-10 19:02:00 65 /min [facility] Body height 2022-02-10 19:02:00 188 cm [facility] Body weight 2022-02-10 19:02:00 102.059 kg [facility] BMI 2022-02-10 19:02:00 28.89 kg/m2 [facility] Oxygen saturation in 2022-02-10 19:02:00 98 /min [facility] Arterial blood by Pulse oximetry Respiratory rate 2022-02-05 16:10:00 14 /min [facility] Procedures Procedure Date / Time Performing Source Performed Clinician unlisted imaging order 2022-02-17 Jett schultz 00:00:00 PULMONARY FUNCTION TEST 2022-02-10 Sharon Garces t 18:05:54 [facility] CT, chest, w/ contrast 2021-02-20 [place] 00:00:00 Medical Group XR, chest, 2 view 2021-02-20 [place] 00:00:00 Medical Group unlisted imaging order 2021-02-20 [place] 00:00:00 Medical Group NM, hepatobiliary scan, w/ CCK 2019-02-27 [facility] 00:[facility] Cardiac Surgery 2014-08-09 [place] 00:00:00 Medical Group Cardiac Surgery 2012-08-09 [place] 00:00:00 Medical Group Esophagogastroduodenoscopy (Surg) [facility] Plan of Care Planned Activity Planned Date Details Comments Source Future Scheduled Test 2022-07-22 Hepatitis C Method [facility] 19:39:54 screening (procedure) [code = 430398775] Future Scheduled Test 2022-07-22 COLONOSCOPY Method [facility] 19:39:54 SCREENING [code = COLONOSCOPY SCREENING] Future Scheduled Test 2022-07-22 SHINGLES VACCINES (1 [facility] 19:39:54 of 2) [code = SHINGLES VACCINES (1 of 2)] Future Scheduled Test 2022-07-22 COVID-19 VACCINE (3 [facility] 19:39:54 - Booster for Moderna series) [code = COVID-19 VACCINE (3 - Booster for Moderna series)] Future Scheduled Test 2022-07-22 INFLUENZA VACCINE [facility] 19:39:54 [code = INFLUENZA VACCINE] Future Scheduled Test 2022-07-22 Hepatitis C Method [facility] 19:39:54 screening (procedure) [code = 168796932] Future Scheduled Test 2022-07-22 COLONOSCOPY Method [facility] 19:39:54 SCREENING [code = COLONOSCOPY SCREENING] Future Scheduled Test 2022-07-22 SHINGLES VACCINES (1 [facility] 19:39:54 of 2) [code = SHINGLES VACCINES (1 of 2)] Future Scheduled Test 2022-07-22 COVID-19 VACCINE (3 [facility] 19:39:54 - Booster for Moderna series) [code = COVID-19 VACCINE (3 - Booster for Moderna series)] Future Scheduled Test 2022-07-22 INFLUENZA VACCINE [facility] 19:39:54 [code = INFLUENZA VACCINE] Future Scheduled Test 2022-07-22 Hepatitis C Method [facility] 19:39:54 screening (procedure) [code = [id number]] Future Scheduled Test 2022-07-22 COLONOSCOPY Method [facility] 19:39:54 SCREENING [code = COLONOSCOPY SCREENING] Future Scheduled Test 2022-07-22 SHINGLES VACCINES (1 [facility] 19:39:54 of 2) [code = SHINGLES VACCINES (1 of 2)] Future Scheduled Test 2022-07-22 COVID-19 VACCINE (3 [facility] 19:39:54 - Booster for Moderna series) [code = COVID-19 VACCINE (3 - Booster for Moderna series)] Future Scheduled Test 2022-07-22 INFLUENZA VACCINE [facility] 19:39:54 [code = INFLUENZA VACCINE] Future Scheduled Test 2022-04-29 HEPATITIS B VACCINES [facility] 22:16:07 (1 of 3 - 3-dose series) [code = HEPATITIS B VACCINES (1 of 3 - 3-dose series)] Future Scheduled Test 2022-04-29 Hepatitis C Method [facility] 22:16:07 screening (procedure) [code = [id number]] Future Scheduled Test 2022-04-29 COLONOSCOPY Method [facility] 22:16:07 SCREENING [code = COLONOSCOPY SCREENING] Future Scheduled Test 2022-04-29 SHINGLES VACCINES (1 [facility] 22:16:07 of 2) [code = SHINGLES VACCINES (1 of 2)] Future Scheduled Test 2022-04-29 COVID-19 VACCINE (3 [facility] 22:16:07 - Booster for Moderna series) [code = COVID-19 VACCINE (3 - Booster for Moderna series)] Future Scheduled Test 2022-04-29 INFLUENZA VACCINE [facility] 22:16:07 [code = INFLUENZA VACCINE] Future Scheduled Test 2022-04-21 HEPATITIS B VACCINES [facility] 13:33:49 (1 of 3 - 3-dose series) [code = HEPATITIS B VACCINES (1 of 3 - 3-dose series)] Future Scheduled Test 2022-04-21 Hepatitis C Method [facility] 13:33:49 screening (procedure) [code = [id number]] Future Scheduled Test 2022-04-21 COLONOSCOPY [facility] 13:33:49 SCREENING [code = COLONOSCOPY SCREENING] Future Scheduled Test 2022-04-21 SHINGLES VACCINES ([facility] 13:33:49 of 2) [code = SHINGLES VACCINES (1 of 2)] Future Scheduled Test 2022-04-21 COVID-19 VACCINE (3 [facility] 13:33:49 - Booster for Moderna series) [code = COVID-19 VACCINE (3 - Booster for Moderna series)] Future Scheduled Test 2022-04-21 INFLUENZA VACCINE M [facility] 13:33:49 [code = INFLUENZA VACCINE] Diagnostic Test 2022-03-11 CBC w/ auto diff [facility] Pending 00:00:00 [code = CBC w/ auto diff] Future Appointment 2025-03-21 Emiliano Porter, [address] [place] [address] Medical 00:00:00 [facility] [address]; , [place] [address] Encounters Start End Encounter Admission Attending Care Care Encounter Source Date/Time Date/Time Type Type Clinicians Facility Department ID 2017-06-10 Inpatient C [facility] [id number] [facility] 11:00:00 [facility] 2022-07-25 2022-07-25 Emergency ER RAZA [facility] [id number] 37 [facility] 17:01:00 17:01:00 [facility]ARM[id number] [facility] 2022-07-21 Outpatient GC_WPSA_Awa PRIV PRIV [id number] [facility] 00:00:00 00:00:00 n_R [id number] Medica 2022-07-21 2022-07-21 Libert[facility] Hairston [facility] [id number] [facility] 00:00:00 00:00:00 MD Nicolle: Health - Med ica [id number] GC_WPSA_Ric [facility], [address], [place] [address] , Ph. 2022-07-09 2022-07-09 Outpatient GC_WPSA_Awa PRIV PRIV [id number] [facility] 00:00:00 00:00:00 n_R [id number] Medica l 2022-06-29 2022-06-29 Outpatient GC_WPSA_Awa PRIV PRIV [id number] [facility] 00:00:00 00:00:00 n_R [id number] Medica l 2022-06-22 2022-06-22 Outpatient GC_WPSA_Awa PRIV PRIV [id number] [facility] 00:00:00 00:00:00 n_R [id number] Medica l 2022-06-10 2022-06-10 Outpatient GC_WPSA_Awa PRIV PRIV [id number] [facility] 00:00:00 00:00:00 n_R [id number] Medica l 2022-06-03 2022-06-03 Libertad Yovanny [facility] 00:00:00 00:00:00 MD Nicolle: Health - Med ica [id number] GC_WPSA_Ric [facility], [address], [place] [address] , Ph. 2022-06-02 2022-06-02 Outpatient GC_WPSA_Awa PRIV PRIV [id number] [facility] 00:00:00 00:00:00 n_R [id number] Medica l 2022-05-15 2022-05-15 Telephone Stevo, 1.2.840.1 [id number] [id number] [facility] 00:00:00 00:00:[id number] 3.430.2.7 Hospit a .3.860770 l .8 2022-05-15 2022-05-15 Telephone Whiteside, 1.2.840.1 [id number] [id number] [facility] 00:00:00 00:00:[address] 3.430.2.7 Hospit a .3.594654 l .8 2022-05-12 2022-05-12 Travel 1.2.840.1 1.2.305.919 [id number] [facility] 00:00:00 00:00:[address] 3.430.2.7 0.2.7.3.698 Ho spita .3.781892 084.8 l .8 2022-05-12 2022-05-12 Travel 1.2.840.1 1.2.763.391 [id number] [id number] [facility] 00:00:00 00:00:[address] 3.430.2.7 0.2.7.3.698 Ho spita .3.664391 084.8 l .8 2022-05-11 2022-05-11 Telephone Arias, 1.2.840.1 [id number] [id number] [facility] 00:00:00 00:00:[address] 3.430.2.7 Hospit a .3.901397 l .8 2022-05-11 2022-05-11 Telephone Arias, 1.2.840.1 [id number] [id number] [facility] 00:00:00 00:00:[address] 3.430.2.7 Hospit a .3.922394 l .8 2022-05-07 2022-05-07 Libertad [facility] [id number] [facility] 00:00:00 00:00:00 MD Nicolle: Health - Med ica [id number] GC_WPSA_[facility], [address], [place] [address] , Ph. 2022-05-01 2022-05-01 Outpatient GC_WPSA_Awa PRIV PRIV [id number] [facility] 00:00:00 00:00:00 n_R [id number] Medica l 2022-04-30 2022-04-30 Outpatient Libertad Thornton [facility] [id number] [facility] 06:32:00 06:32:00 20 [facility] 2022-04-23 2022-04-23 Outpatient NITESH Roa [facility] [id number] [facility] 07:39:00 07:39:00 [place] 66 [facility] 2022-04-09 2022-04-09 Outpatient Libertad Jacobs PRIV PRIV [id number] 00:00:00 00:00:00 Yovanny [id number] 2022-04-09 2022-04-09 Libertad Yovanny [facility] 202 [facility] 00:00:00 00:00:00 MD Nicolle: Health - Med ical [id number] [facility]PS[facility] [facility], [address], [address], [place] [address] , Ph. 2022-04-08 2022-04-08 Outpatient GC_WPSA_Awa PRIV PRIV [id number] [facility] 00:00:00 00:00:00 n_R [id number] Medica l 2022-03-20 2022-03-20 Outpatient LIBERTAD JACOBS [facility] PUL [id number] [facility] 08:08:00 14:07:00 2022-03-11 2022-03-11 Outpatient GC_WPSA_Awa PRIV PRIV [id number] [facility] 00:00:00 00:00:00 n_R [id number] Medica l 2022-03-11 2022-03-11 Outpatient Libertad Jacobs PRIV PRIV [id number] 00:00:00 00:00:00 Yovanny [id number] 2022-03-11 2022-03-11 Libertad Yovanny PRIV [facility] 202 [facility] 00:00:00 00:00:00 MD Nicolle: Health - Med ical [id number] GC_WPSA_Ric [facility], [address], [place] [address] , Ph. 2022-03-06 2022-03-06 Outpatient EL LIBERTAD JACOBS [facility] D000 [id number] [place] 07:41:00 07:41:00 -[id number] [facility] 2022-02-18 2022-02-18 Outpatient IHDE_G MMG [facility] [id number] [place] 11:26:00 11:26:00 0713 Medical Group 2022-02-18 2022-02-18 Outpatient IHDE_G [place] [id number] [place] 11:26:00 11:26:00 0714 Medical Group 2022-02-18 2022-02-18 Aniceto Fields MMG [place] - [id number] [place] 00:00:00 00:00:00 MD: Carlyle Barillas [facility] [address], [facility], [place] [facility] [address] , Ph. 2022-02-17 2022-02-17 Outpatient GC_WPSA_Awa PRIV PRIV [id number] [facility] 04:34:00 04:34:00 n_R [id number] Medica l 2022-02-17 2022-02-17 Outpatient IHDE_G MMG [facility] [id number] [place] 04:17:00 04:17:00 0712 Medical [facility] 2022-02-17 2022-02-17 Outpatient Nicolle, Libertad PRIV PRIV [id number] 00:00:00 00:00:00 Yovanny [id number] 2022-02-17 2022-02-17 Libertad Yovanny PRIV [facility] [id number] [facility] 00:00:00 00:00:00 MD Nicolle: Health - Med ica [id number] GC_WPSA_[facility], [address], [place] [address] , Ph. 2022-02-16 2022-02-16 Telephone Mario 1.2.840.1 [id number] Methodi 00:00:00 00:00:[address] 3.430.2.7 Hospit a .3.796580 l .8 2022-02-16 2022-02-16 Telephone Mario 1.2.840.1 [id number] Methodi 00:00:00 00:00:[address] 3.430.2.7 Hospit a .3.292152 l .8 2022-02-12 2022-02-12 Outpatient IHDE_G MMG [facility] [id number] [place] 09:50:00 09:50:00 0707 beatriz [facility] 2022-02-12 2022-02-12 Emiliano [facility] [place] - [id number] atagor 00:00:00 00:00:00 Parviz Goodwin MD: Medical Medica [address], [place] [address] , Ph. [phone] 2022-02-11 2022-02-11 Outpatient GC_WPSA_Awa PRIV PRIV [id number] [facility] 05:23:00 05:23:00 n_R [id number] Medica l 2022-02-10 2022-02-10 Clinical Arnold, 1.2.840.1 [id number] 90380 15869 Methodi 13:15:00 13:55:22 Support Eva [address]69.1.[address] 3.430.2.7 Hospit a .3.843456 l .8 2022-02-10 2022-02-10 Clinical Arnold, 1.2.840.1 [id number] 12840 70967 Methodi 13:15:00 13:55:22 Support Eva [address]409.1.[address] 3.430.2.7 Hospit a .3.700839 l .8 2022-02-10 2022-02-10 Clinical Arnold, 1.2.840.1 [id number] 06278 91380 Methodi 13:00:00 13:55:14 Support Eva [address]5591.1.[address] 3.430.2.7 Hospit a .3.969039 l .8 2022-02-10 2022-02-10 Clinical Arnold, 1.2.840.1 424535769 92817 02548 Methodi 13:00:00 13:55:14 Support Eva 89743.1.[address] 3.430.2.7 Hospit a .3.503887 l .8 2022-02-10 2022-02-10 Travel 1.2.840.1 1.2.595.802 0040 301431 Methodi 00:00:00 00:00:[address] 3.430.2.7 0.2.7.3.698 Ho spita .3.286377 084.8 l .8 2022-02-10 2022-02-10 Travel 1.2.840.1 1.2.232.714 4581 482400 Methodi 00:00:00 00:00:[address] 3.430.2.7 0.2.7.3.698 Ho spita .3.020980 084.8 l .8 2022-02-05 2022-02-05 Emergency ER YADY, [facility] [id number] [facility] 20:40:00 22:23:00 YUNG -[id number] [facility] 2022-02-05 2022-02-05 Office Garces, 1.2.840.1 [id number] 1875 Methodi 11:00:00 15:12:57 Visit [facility] [address]29.1.[address] Wilian 3.430.2.7 Hospit a .3.417751 l .8 2022-02-05 2022-02-05 Office Garces, 1.2.840.1 899780193 417585 7167 Methodi 11:00:00 15:12:57 Visit [facility] [address]604.1.[address] Wilian 3.430.2.7 Hospit a .3.715933 l .8 2022-02-05 2022-02-05 Travel 1.2.840.1 1.2.800.105 1340 739660 Methodi 00:00:00 00:00:[address] 3.430.2.7 0.2.7.3.698 Ho spita .3.269078 084.8 l .8 2022-02-05 2022-02-05 Travel 1.2.840.1 1.2.014.290 5249 108207 Methodi 00:00:00 00:00:[address] 3.430.2.7 0.2.7.3.698 Ho spita .3.570769 084.8 l .8 2022-01-21 2022-01-21 Outpatient EL MARSHALLEMILIANO Juan [facility] D00 [id number] [place] 06:43:00 06:43:00 -[id number] [facility] 2022-01-15 2022-01-15 Outpatient IHDE_G MMG MMG [id number] [place] 03:09:00 03:09:00 0621 [facility] 2022-01-06 2022-01-06 Outpatient IHDE_G MMG MMG [id number] [place] 11:36:00 11:36:00 0531 [facility] 2022-01-06 2022-01-06 Outpatient IHDE_G MMG MMG [id number] [place] 11:36:00 11:36:00 0602 [facility] 2022-01-06 2022-01-06 Outpatient IHDE_G MMG MMG [id number] [place] 11:36:00 11:36:00 0609 [facility] 2022-01-06 2022-01-06 [facility] [place] - [id number] M atagor 00:00:00 00:00:00 Parviz Goodwin MD: Medical Medica [address], [place] [address] , Ph. [phone] 2021-12-29 2021-12-29 Outpatient IHDE_G MMG MMG [id number] [place] 03:25:00 03:25:00 0524 Medical [facility] 2021-12-29 2021-12-29 Outpatient IHDE_G MMG MMG [id number] [place] 03:25:00 03:25:00 0527 Medical [facility] 2021-12-29 2021-12-29 Outpatient IHDE_G MMG MMG [id number] [place] 03:23:00 03:23:00 0523 [facility] 2021-11-27 2021-11-27 Outpatient GEO WINSTON, [facility] [id number] [place] 12:30:00 12:30:00 PRATIK -[id number] [facility] 2021-10-02 2021-10-02 Emergency ER , [facility] [id number] [place] 03:59:00 09:08:00 WASIM -[id number] [facility] 2021-08-19 2021-08-21 Inpatient ER MICHAEL, [facility] [id number] [place] 16:05:00 14:33:00 MOHAMMAD -[id number] da SAMIRA [facility] 2021-08-14 2021-08-14 Emergency ER DON, [facility] [id number] [place] 03:58:00 08:41:00 ALEX -[id number] [facility] 2021-07-09 2021-07-09 Outpatient IHDE_G MMG MMG [id number] [place] 11:57:00 11:57:00 0518 [facility] 2021-06-25 2021-06-25 Outpatient IHDE_G MMG MMG [id number] [place] 10:17:00 10:17:00 1117 [facility] 2021-06-14 2021-06-14 Outpatient IHDE_G MMG MMG [id number] [place] 03:33:00 03:33:00 1106 [facility] 2021-05-10 2021-05-10 Outpatient IHDE_G MMG MMG [id number] [place] 07:24:00 07:24:00 1002 [facility] 2021-04-05 2021-04-05 Outpatient IHDE_G MMG MMG [id number] [place] 01:02:00 01:02:00 0828 [facility] 2021-03-04 2021-03-04 Outpatient IHDE_G MMG MMG [id number] [place] 12:07:00 12:07:00 0727 [facility] 2021-03-04 2021-03-04 Emiliano MMG [place] - [id number] M at[place]or 00:00:00 00:00:00 Parviz Goodwin MD: Medical Medica [address], [place] [address] , Ph. [phone] 2021-02-28 2021-02-28 Outpatient EL IHDEMILIANO Juan [facility] D00 [id number] [place] 09:00:00 09:00:00 -[id number] [facility] 2021-02-28 2021-02-28 Outpatient IHDE_G MMG MMG [id number] [place] 01:32:00 01:32:00 0723 [facility] 2021-02-28 2021-02-28 Outpatient IHDE_G MMG MMG [id number] [place] 01:32:00 01:32:00 0726 [facility] 2021-02-24 2021-02-24 Outpatient EL IHDEEMILIANO [facility] D00 [id number] [place] 07:59:00 07:59:00 -[id number] [facility] 2021-02-24 2021-02-24 Outpatient IHDE_G MMG MMG [id number] [place] 05:01:00 05:01:00 0719 [facility] 2021-02-20 2021-02-20 Outpatient IHDE_G MMG MMG [id number] [place] 05:41:00 05:41:00 0715 da [facility] 2021-02-20 2021-02-20 Outpatient IHDE_G MMG MMG [id number] [place] 05:41:00 05:41:00 0716 da [facility] 2021-02-20 2021-02-20 Outpatient IHDE_G MMG MMG [id number] [place] 05:41:00 05:41:00 0718 Medical [facility] 2021-02-20 2021-02-20 Emiliano MMG [place] - [id number] M at[place] 00:00:00 00:00:00 Parviz Goodwin MD: Medical Medica [address], [place] [address] , Ph. [phone] 2021-01-23 2021-01-23 Outpatient GEO WINSTON [facility] [id number] [place] 07:39:00 07:39:00 [id number] [facility] 2020-11-13 2020-11-13 Outpatient Koudela_A MMG MMG [id number] [place] 03:11:00 03:11:00 0407 Medical Group 2020-11-13 2020-11-13 Outpatient Koudela_A MMG MMG [id number] [place] 03:11:00 03:11:00 0708 [facility] 2020-10-18 2020-10-18 Outpatient Koudela_A MMG MMG [id number] [place] 09:17:00 09:17:00 0312 [facility] 2020-10-18 2020-10-18 Carolyne [facility] [place] - [id number] M at[place]or 00:00:00 00:00:00 Beverly Rosario Medical Medical ACCESSORIES REPAIRER: [address] [facility] [address], [place] [address] , Ph. 2020-08-21 2020-08-21 Outpatient IHDE_G MMG MMG [id number] [place] 04:52:00 04:52:00 0113 [facility] 2020-06-26 2020-06-26 Outpatient IHDE_G MMG MMG [id number] [place] 02:41:00 02:41:00 1118 [facility] 2020-06-12 2020-06-12 Outpatient IHDE_G MMG MMG [id number] [place] 04:49:00 04:49:00 1104 [facility] 2020-04-11 2020-04-11 Outpatient IHDE_G MMG MMG [id number] [place] 04:25:00 04:25:00 0903 [facility] 2020-04-11 2020-04-11 Carolyne HAQUE [place] - [id number] M at[place] 00:00:00 00:00:00 Paul Alexys Cosme Medical ACCESSORIES REPAIRER: [address] [facility] [address], [place] [address] , Ph. 2020-04-02 2020-04-02 Outpatient IHDE_G MMG MMG [id number] [place] 09:36:00 09:36:00 0825 [facility] 2020-03-30 2020-03-30 Emergency ER PURVI, [facility] [id number] [place] 20:02:00 21:28:00 GILLIAN -[id number] [facility] 2020-03-21 2020-03-21 Outpatient IHDE_G MMG MMG [id number] [place] 07:20:00 07:20:00 0813 [facility] 2020-03-21 2020-03-21 Emiliano [facility] [place] - [id number] M at[place] 00:00:00 00:00:00 Parviz Goodwin MD: Medical Medica l [address] [facility] [address], [place] [address] , Ph. [phone] 2020-02-23 2020-02-23 Outpatient IHDE_G MMG MMG [id number] [place] 11:33:00 11:33:00 0717 [facility] 2020-02-23 2020-02-23 Outpatient IHDE_G MMG MMG [id number] [place] 11:33:00 11:33:00 0720 [facility] 2020-02-21 2020-02-21 Outpatient EL MARSHALLEMILIANO Juan [facility] D00 [id number] [place] 05:47:00 05:47:00 -[id number] [facility] 2020-02-19 2020-02-19 Outpatient UR TISH, [facility] [id number] [place] 08:07:00 08:07:00 PRATIK -[id number] [facility] 2020-01-25 2020-01-25 Outpatient IHDE_G MMG MMG [id number] [place] 09:43:00 09:43:00 0618 [facility] 2020-01-25 2020-01-25 Emiliano [facility] [place] - [id number] M at[place] 00:00:00 00:00:00 Parviz Goodwin MD: Medical Medica [address], [place] [address] , Ph. [phone] 2019-11-09 2019-11-09 Emiliano [facility] [place] - [id number] M at[place] 00:00:00 00:00:00 Parviz Goodwin MD: Medical Medica [address], [place] [address] , Ph. [phone] 2019-09-15 2019-09-15 Outpatient IHDE_G MMG MMG [id number] [place] 03:01:00 03:01:00 0406 Medical Group 2019-09-15 2019-09-15 Outpatient IHDE_G MMG MMG [id number] [place] 03:01:00 03:01:00 0408 Medical Group 2019-09-11 2019-09-11 Emergency [facility] [id number] [place] 00:19:00 01:10:00 TIFFANIE -[id number] [facility] 2019-09-06 2019-09-06 Outpatient IHDE_G MMG MMG [id number] [place] 10:20:00 10:20:00 0129 Medical Group 2019-09-04 2019-09-04 Outpatient IHDE_G MMG MMG [id number] [place] 05:10:00 05:10:00 0127 Medical Group 2019-08-30 2019-08-30 Outpatient IHDE_G MMG MMG [id number] [place] 04:30:00 04:30:00 0122 Medical Group 2019-08-29 2019-08-29 Outpatient IHDE_G MMG MMG [id number] [place] 05:45:00 05:45:00 0121 Medical Group 2019-08-29 2019-08-29 Emiliano [facility] [place] - [id number] M [facility] 00:00:00 00:00:00 Parviz Goodwin MD: Medical Medica [address], [place] [address] , Ph. [phone] 2019-08-15 2019-08-15 Outpatient IHDE_G [facility] [id number] [place] 03:51:00 03:51:00 0114 [facility] 2019-07-04 2019-07-04 Emiliano HAQUE [place] - [id number] M at[place]or 00:00:00 00:00:00 Parviz Goodwin MD: Medical Medica [address], surgery [place] [address] , Ph. [phone] 2019-05-09 2019-05-09 Emiliano HAQUE [place] - [id number] M at[place] 00:00:00 00:00:00 Parviz Goodwin MD: Medical Medica [address], [place] [address] , Ph. [phone] 2019-04-25 2019-04-27 Inpatient ER IHDEMILIANO Juan [facility] MED [id number] [place] 18:56:00 11:00:00 -[id number] [facility] 2019-04-24 2019-04-25 Outpatient EL IHDJaquelin, EMILIANO [facility] [id number] [place] 07:55:00 10:18:00 -[id number] [facility] 2019-04-21 2019-04-22 Inpatient ER MINERVA, [facility] MED [id number] [place] 11:08:00 12:44:00 DARLIN -[id number] [facility] 2019-04-13 2019-04-13 Emiliano [facility] [place] - [id number] M [facility] 00:00:00 00:00:00 Parviz Goodwin MD: Medical Medica [address], [place] [address] , Ph. [phone] 2019-04-06 2019-04-06 Emiliano SHABNAM [place] - [id number] M at[place] 00:00:00 00:00:00 Parviz Goodwin MD: Medical Medica [address], [address], [place] [id number] , Ph. [phone] 2019-03-14 2019-03-14 Emiliano [facility] [place] - [id number] M at[place] 00:00:00 00:00:00 Parviz Goodwin MD: Medical Medica [address], [address], [place] [address] , Ph. [phone] 2019-02-14 2019-02-14 Namita [facility] [place] - [id number] M at[place]or 00:00:00 00:00:00 Discovery beatriz Wiley ACCESSORIES REPAIRER: [address] [place] [address], [place] [address], [facility] [place] [address] , Ph. 2019-02-07 2019-02-07 Emiliano [facility] [place] - [id number] M at[place] 00:00:00 00:00:00 Parviz Goodwin MD: [facility] Medica [address], [address], [place] [address] , Ph. [phone] 2019-02-06 2019-02-06 Emergency ER PARUL, [facility] [id number] [place] 15:37:00 19:12:00 ODALYS -[id number] [facility] 2018-09-23 2018-09-23 Emergency ER DILCIA, [facility] [id number] [place] 02:02:00 02:39:00 VICTOR MANUEL [id number] [facility] 2018-06-23 2018-06-24 Inpatient ER MICHAEL, [facility] MED [id number] [place] 13:13:00 13:07:00 [facility][id number] [facility] 2018-05-09 2018-05-10 Inpatient ER MICHAEL, [facility] MED [id number] [place] 09:05:00 16:17:00 MOHAMMAD -[id number] [facility] 2018-02-18 2018-02-18 Inpatient ER MICHAEL, [facility] MED [id number] [place] 00:21:00 13:19:00 NED -[id number] [facility] 2017-10-26 2017-10-26 Emergency ER DILCIA, [facility] [id number] [place] 08:27:00 11:22:00 VICTOR MANUEL -[id number] [facility] 2017-07-29 2017-07-29 Emergency ER SEB DELGADO [facility] [id number] [place] 17:30:00 21:30:00 -[id number] [facility] 2017-07-20 2017-07-22 Inpatient ER MICHAEL, [facility] MED [id number] [place] 18:26:00 11:40:00 [facility] -[id number] [facility] 2017-07-12 2017-07-13 Inpatient ER MINERVA, [facility] MED [id number] [place] 10:36:00 12:34:00 DARLIN -[id number] [facility] 2017-06-10 2017-06-10 Emergency ER MALLORIE RAMIREZG [facility] [id number] [place] 18:42:00 22:25:00 -[id number] [facility] 2017-05-30 2017-05-31 Emergency ER FRAME, [facility] [id number] [place] 22:27:00 01:50:00 LARA -[id number] [facility] 2017-05-26 2017-05-29 Inpatient ER MICHAEL, [facility] MED [id number] [place] 13:28:00 15:33:00 [id number] 2017-05-19 2017-05-19 Outpatient ER TISH, [facility] [id number] [place] 12:06:00 12:06:00 PRATIK -[id number] [facility] 2017-05-16 2017-05-16 Emergency ER FRAME, [facility] [id number] [place] 09:07:00 13:57:00 LARA -[id number] [facility] 2016-06-05 2016-06-05 Emergency ER PÉREZ, [facility] [id number] [place] 14:49:00 17:40:00 DAVID -[id number] [facility] 2016-05-30 2016-06-02 Inpatient ER MINERVA, [facility] MED [id number] [place] 17:42:00 12:27:00 DARLIN -[id number] [facility] 2015-10-09 2015-10-09 Outpatient GEO WINSTON, [facility] [id number] [place] 08:26:00 08:26:00 PRATIK -[id number] [facility] 2015-10-08 2015-10-08 Outpatient GEO WINSTON, [facility] [id number] [place] 16:05:00 16:05:00 PRATIK -[id number] [facility] 2015-07-22 2015-07-22 Outpatient GEO WINSTON, [facility] [id number] [place] 08:27:00 08:27:00 PRATIK [id number] [facility] 2015-03-03 2015-03-04 Inpatient ER MINERVA, [facility] MED [id number] [place] 11:15:00 11:04:00 DARLIN -[id number] [facility] 2015-02-18 2015-02-18 Outpatient MAURISIO BECERRIL [facility] [id number] [place] 17:26:00 17:26:00 -[id number] [facility] 2015-01-08 2015-01-08 Outpatient GEO WINSTON, [facility] [id number] [place] 10:00:00 10:00:00 PRATIK [id number] [facility] 2014-12-13 2014-12-15 Inpatient ER MINERVA, [facility] MED [id number] [place] 22:43:00 10:58:00 DARLIN -[id number] [facility] 2014-10-19 2014-10-19 Emergency ER PÉREZ, [facility] [id number] [place] 00:04:00 02:39:00 BALTAZAR -[id number] [facility] 2014-08-07 2014-08-07 Outpatient GEO WINSTON, [facility] [id number] [place] 07:46:00 07:46:00 PRATIK [id number] [facility] 2014-07-29 2014-07-29 Emergency ER AILEEN, [facility] [id number] [place] 09:43:00 10:35:00 REKHA [id number] [facility] 2013-12-07 2013-12-07 Emergency ER [facility] [id number] [place] 20:59:00 22:57:00 GUSTAVO -[id number] [facility] 2013-11-08 2013-11-08 Outpatient BEBA WINSTON, [facility] [id number] [place] 15:01:00 15:01:00 PRATIK -[id number] [facility] 2013-10-11 2013-10-11 Emergency ER PÉREZ, [facility] [id number] [place] 09:48:00 12:39:00 WAS -[id number] [facility] 2013-10-02 2013-10-02 Outpatient GEO WINSTON, [facility] [id number] [place] 08:03:00 08:03:00 PRATIK -[id number] [facility] 2013-09-14 2013-09-14 Emergency ER PÉREZ, [facility] [id number] [place] 08:15:00 10:06:00 WAS -[id number] [facility] 2013-09-12 2013-09-12 Outpatient GEO WINSTON, [facility] [id number] [place] 08:06:00 08:06:00 PRATIK -[id number] [facility] 2013-03-18 2013-03-18 Emergency ER AILEEN, [facility] [id number] [place] 09:57:00 11:30:00 REKHA -[id number] [facility] 2012-11-25 2012-11-25 Outpatient GEO WINSTON, [facility] [id number] [place] 07:03:00 07:03:00 PRATIK -[id number] [facility] 2012-09-07 2012-09-07 Emergency ER JAYES, [facility] [id number] [place] 08:07:00 09:50:00 YVETTE -[id number] [facility] 2011-09-16 2011-09-16 Emergency ER JMJI, [facility] [id number] [place] 09:35:00 12:39:00 TIFFANIE -[id number] [facility] 2011-09-01 2011-09-01 Outpatient GEO WINSTON, [facility] [id number] 10:45:00 10:45:00 PRATIK -[id number] [facility] 2011-05-12 2011-05-12 Outpatient GEO WINSTON, [facility] [id number] 07:53:00 07:53:00 PRATIK -[id number] [facility] 2011-02-23 2011-02-24 Inpatient ER MINERVA, [facility] MED [id number] 10:19:00 19:00:00 DARLIN -[id number] [facility] Results Test Description Test Time Test Comments Results Result [facility] e Comments - SP AORTOGM 2022-04-30 W/FILM 10:42:00 [facility] 1970 Sex: M Patient Name: MARTHA PALACIO Unit No: [id number] EXAMS: CPT CODE: [id number] AORTOGM W/FILM [id number] EXAMINATION: DIAGNOSTIC ANGIOGRAM. LOCATION: . HISTORY: 52-year-old male with history of chronic sinusitis and mild hemoptysis with spitting up of blood. Recent bronchoscopy showed some blood in the left mainstem bronchus. SEDATION: The patient did not require conscious sedation for the procedure. He received fentanyl 25 mcg IV. RADIATION DOSE: Total reference air kerma 347.2 mGy. ANTIBIOTICS: None. Not indicated. TECHNIQUE: The risks, benefits, and alternatives were discussed and informed consent was obtained. Prior to beginning the procedure, [place] Protocol was used to confirm the patient's identity and planned procedure. Maximum sterile barriers including cap, mask, hand hygiene, sterile gloves, sterile gown, large sterile drape and cutaneous antisepsis were used. Ultrasound was used to evaluate the right common femoral artery. An image was recorded and saved to the EMR. After sterile prep, the skin over the right common femoral artery was infiltrated with lidocaine and the vessel was accessed using Seldinger technique under real-time ultrasound guidance. A 6 Welsh sheath was placed and connected to a heparinized saline drip. Using fluoroscopic guidance, the following arteries were catheterized in sequences: Descending thoracic aorta. The equipment used for catheterization was a 5 Welsh Omni Flush catheter and 0.035 inch guidewire. Attempt was made to catheterize the left renal artery using a Mckenzie catheter with success. After multiple diligent attempts, the procedure was aborted. Indication for angiography: Diagnostic angiography - There was no prior catheter-based angiographic study available and a full diagnostic study was performed. After completion of the exam, a limited common femoral artery angiogram was performed to confirm satisfactory position of arterial puncture site. Vascade device was deployed to accomplish successful closure of the arteriotomy. ESTIMATED BLOOD LOSS: Less than 30 milliliters. COMPLICATIONS: None. [facility] NAME: MARTHA PALACIO [id number] [address] PHYS: [place] [address] : 1970 AGE: 52 SEX: M LOC: Z.CCL PHONE #: [phone] EXAM DATE: 04/30/2022 STATUS: REG CLI FAX #: [phone] RAD #: D/C DT PAGE 1 Signed Report (CONTINUED) Patient Name: MARTHA PALACIO Unit No: [id number] EXAMS: CPT CODE: [id number] AORTOGM W/FILM 47127 (Continued) DISCHARGED TO: Outpatient recovery then home. FINDINGS: Ultrasound demonstrates a patent right common femoral artery. Descending thoracic aortogram demonstrates bilateral intercostal arteries with no hypertrophied bronchial arteries. There is reflux of contrast into the left subclavian artery and left internal mammary artery bypass graft. IMPRESSION: No hypertrophied bronchial arteries are identified. PLAN: Consider CT neck with and without IV contrast to exclude salivary gland pathology. at 1042 Reported and signed by: Serina Mack MD CC: Libertad Jacobs MD; Serina Mack MD Technologist: Tania Ramon RT(R) Fluoro Time: DAP (Gy m2): Air Kerma (mGy): Trnscrpt: 04/30/2022 (1042) [email or web address] [facility] NAME: MARTHA PALACIO [id number] PHYS: [place] [address] : 1970 AGE: 52 SEX: M LOC: BLAYNE PHONE #: [phone] EXAM DATE: 04/30/2022 STATUS: REG CLI FAX #: [phone] RAD #: D/C DT PAGE 2 Signed Report COMPREHENSIVE METABOLIC PANEL 2022-04-30 07:35:00 Test Item Value Reference Range Interpretation Comme nts SODIUM (test code = NA) 140 MMOL/L 137-145 N POTASSIUM (test code = K) 3.8 MMOL/L 3.5-5.1 N CHLORIDE (test code = CL) 105 MMOL/L 98-107 N CARBON DIOXIDE (test code 26 MMOL/L 22-30 N = CO2) ANION GAP (test code = 13 MMOL/L 14-24 L GAP) GLUCOSE (test code = GLU) 110 MG/DL 74-106 H BLOOD UREA NITROGEN (test 13 MG/DL 9-20 N code = BUN) GLOMERULAR FILTRATION RATE 58 R eporting units: ml/min/1.73 m2 (test code = GFR) (Modified MDRD Formula)Reference Range: > or = 6 0 ml/min/1.73 m2 CREATININE (test code = 1.30 MG/DL 0.66-1.25 H CREAT) TOTAL PROTEIN (test code = 8.7 G/DL 6.2-7.6 H O rth[facility] has made PROT) us aware of new information regarding the potential i nterference ofEltrombopag ( a bone marrow stimulant used to treatthrombocyt onmenia and aplastic anemia) with sp ecific assayson the Vitros 5600 of which Total Protein is one of those assays performed in our lab.Interfe rence testing performed at [facility] determined thatEltrombopag does interfere with Vitros Total Pr otein asfollowsEltrom bopag Interference for Vitros Prod uct Total Protein:======= Eltrombopag Max Observed Avg. BiasConcentrati on Concentration Concentration== = 2.5 mg/dl 6.0 g/dl +0.41 +0.34 3.5 mg/dl 6.0 g/dl +0.50 +0.45 5 mg/dl 6.0 g/dl +0.73 +0.65 2.5 mg/dl 8.0 g/dl +0.44 +0.4 1 3.5 mg/dl 8.0 g/dl +0.55 +0.52 5 mg/dl 8.0 g/dl +0.86 +0.77 ALBUMIN (test code = ALB) 4.9 G/DL 3.5-5.0 N CALCIUM (test code = CA) 9.3 MG/DL 8.4-10.2 N BILIRUBIN TOTAL (test code 1.1 MG/DL 0.2-1.3 N E ltrombopag Interference for Vitros = BILT) Product TBil, BuBc: Assay Eltrombopag Blanca lyte/ Max Observed Avg. Bias Rianna ntration Concentration Concentration== =TBil 7mg/dl TB il/ 1.2mg/dl +0.23mg.dl +0.2 0mg/dlBuBc 3.5mg/dl Bu/0.8mg/dl +0. 25mg/dl +0.24mg/dlBuBc 7 mg/dl Bu/14.2mg/dl +0.38mg/dl +0.2 5mg/dlBuBc 5mg/dl Bc/0mg/dl +0.25 mg/dl +0.15mg/dlBuBc 3.5mg/dl Bc/2.8 mg/dl +0.25mg/dl +0.23mg/dl SGOT/AST (test code = AST) 25 UNITS/L 17-59 N SGPT/ALT (test code = ALT) 20 UNITS/L 0-49 N ALKALINE PHOSPHATASE (test 78 UNITS/L 38-126 N code = ALKP) PROTHROMBIN [id number] 07:13:00 Test Item Value Reference Range Interpretation Comments PROTHROMBIN TIME 10.8 SECONDS 9.4-12.7 N PATIENT (test code = PTP) INTERNATIONAL NORMAL 1.0 0.86-1.14 N The INR is to be RATIO (test code = used only for INR) monitoring oral anticoagulantth erap y. INDICATION I NR VALUE ---- ---- ---- -------1. Prophylaxis, de ep venous thrombos is, including high risk surgery. 2.0 - 3.0 2. Prophylaxis, deep venous thrombosis, hip surgery, treatm ent for deep venous thrombosis or pulmonary prevention of systemic emboli sm in patients wit h valvular heart disease, atrial fibrillation, tissue heart va lve, or acute myocar dial infarction. 2.0 - 3.0 3. Fur Sewer al prosthesis hear t valves, recurre nt systemic emboli sm. 3.0 - 4.5 CBC W/AUTO [id number] 07:06:00 Test Item Value Reference Range Interpretation Comments WHITE BLOOD CELL (test code = 7.8 K/MM3 3.8-9.8 N WBC) RED BLOOD CELL (test code = 5.08 M/MM3 3.95-5.67 N RBC) HEMOGLOBIN (test code = HGB) 14.8 G/DL 12.4-16.7 N HEMATOCRIT (test code = HCT) 45.6 % 35.9-49.5 N MEAN CELL VOLUME (test code = 90 fL 81.7-96.1 N MCV) MEAN CELL HGB (test code = MCH) 29.1 pg 27.6-33.2 N MEAN CELL HGB CONCETRATION 32.5 % 32.9-35.5 L (test code = MCHC) RED CELL DISTRIBUTION WIDTH 13.8 % 12.1-15.2 N (test code = RDW) PLATELET COUNT (test code = 214 K/MM3 129-368 N PLT) MEAN PLATELET VOLUME (test code 10.0 fl 7.4-10.4 N = MPV) NEUTROPHIL % (test code = NT%) 63.2 % 43-75 N IMMATURE GRANULOCYTE % (test 0.3 % 0.0-2.0 N code = IG%) LYMPHOCYTE % (test code = LY%) 26.7 % 14-44 N MONOCYTE % (test code = MO%) 7.1 % 4-13 N EOSINOPHIL % (test code = EO%) 2.1 % 0-6 N BASOPHIL % (test code = BA%) 0.6 % 0-2 N NUCLEATED RBC % (test code = 0.0 % 0-1.0 N NRBC%) NEUTROPHIL # (test code = NT#) 4.92 K/mm3 2.0-7.6 N IMMATURE GRANULOCYTE # (test 0.02 x10 3/uL 0-0.03 N code = IG#) LYMPHOCYTE # (test code = LY#) 2.08 K/mm3 1.0-3.8 N MONOCYTE # (test code = MO#) 0.55 K/mm3 0.1-0.8 N EOSINOPHIL # (test code = EO#) 0.16 K/mm3 0.0-0.2 N BASOPHIL # (test code = BA#) 0.05 K/mm3 0.0-0.2 N NUCLEATED RBC # (test code = 0.00 K/mm3 0.0-0.1 N NRBC#) CBC W Auto Differential panel - [id number] 07:00:00 Test Item Value Reference Range Interpretation Comments white blood cell (test code = 7.8 K/mm3 3.8-9.8 white blood cell) red blood cell (test code = red 5.08 M/mm3 3.95-5.67 blood cell) hemoglobin (test code = 14.8 g/dL 12.4-16.7 hemoglobin) hematocrit (test code = 45.6 % 35.9-49.5 hematocrit) mean cell volume (test code = 90 fL 81.7-96.1 mean cell volume) mean cell HGB (test code = mean 29.1 pg 27.6-33.2 cell HGB) mean cell HGB concetration 32.5 % 32.9-35.5 L (test code = mean cell HGB concetration) red cell distribution width 13.8 % 12.1-15.2 (test code = red cell distribution width) platelet count (test code = 214 K/mm3 129-368 platelet count) mean platelet volume (test code 10.0 fL 7.4-10.4 = mean platelet volume) neutrophil % (test code = 63.2 % 43-75 neutrophil %) immature granulocyte % (test 0.3 % 0.0-2.0 code = immature granulocyte %) lymphocyte % (test code = 26.7 % 14-44 lymphocyte %) monocyte % (test code = 7.1 % 4-13 monocyte %) eosinophil % (test code = 2.1 % 0-6 eosinophil %) basophil % (test code = 0.6 % 0-2 basophil %) nucleated RBC % (test code = 0.0 % 0-1.0 nucleated RBC %) neutrophil # (test code = 4.92 K/mm3 2.0-7.6 neutrophil #) immature granulocyte # (test 0.02 x10 3/uL 0-0.03 code = immature granulocyte #) lymphocyte # (test code = 2.08 K/mm3 1.0-3.8 lymphocyte #) monocyte # (test code = 0.55 K/mm3 0.1-0.8 monocyte #) eosinophil # (test code = 0.16 K/mm3 0.0-0.2 eosinophil #) basophil # (test code = 0.05 K/mm3 0.0-0.2 basophil #) nucleated RBC # (test code = 0.00 K/mm3 0.0-0.1 nucleated RBC #) performing lab: (test code = performing lab:) [facility]/[id number] 07:00:00 Test Item Value Reference Range Interpretation Comments prothrombin time patient (test 10.8 seconds 9.4-12.7 code = prothrombin time patient) international normal ratio (test 1.0 0.86-1.14 code = international normal ratio) performing lab: (test code = performing lab:) [facility] - Serum or [id number] 07:00:00 Test Item Value Reference Range Interpretation Comments sodium (test code = sodium) 140 mmol/L 137-145 potassium (test code = potassium) 3.8 mmol/L 3.5-5.1 chloride (test code = chloride) 105 mmol/L 98-107 carbon dioxide (test code = carbon 26 mmol/L 22-30 dioxide) anion gap (test code = anion gap) 13 mmol/L 14-24 L glucose (test code = glucose) 110 mg/dL 74-106 H blood urea nitrogen (test code = 13 mg/dL 9-20 blood urea nitrogen) glomerular filtration rate (test 58 code = glomerular filtration rate) creatinine (test code = 1.30 mg/dL 0.66-1.25 H creatinine) total protein (test code = total 8.7 g/dL 6.2-7.6 H protein) albumin (test code = albumin) 4.9 g/dL 3.5-5.0 calcium (test code = calcium) 9.3 mg/dL 8.4-10.2 bilirubin total (test code = 1.1 mg/dL 0.2-1.3 bilirubin total) SGOT/AST (test code = SGOT/AST) 25 units/L 17-59 SGPT/ALT (test code = SGPT/ALT) 20 units/L 0-49 alkaline phosphatase (test code = 78 units/L 38-126 alkaline phosphatase) performing lab: (test code = performing lab:) [facility]- CTA [id number] 08:34:00 [facility] [place] : 1970 Sex: M Patient Name: MARTHA PALACIO Unit No: [id number] EXAMS: CPT CODE: [id number] CTA CHEST 74142 EXAMINATION: - CTA CHEST COMPARISON: None HISTORY: Hemoptysis LOCATION CODE: C3 TECHNIQUE: CT of the Chest with intravenous contrast. 5 mm axial contrast enhanced images of the chest were obtained and reviewed in softtissue, bone and lung windows. Coronal and sagittal reconstructed images were also provided for review. Images were timed for optimal opacification of the pulmonary arterial tree Image post processing with 3D volume rendering and multiplanar reconstruction were done at the advanced workstation. All CTscans are performed using dose optimization techniques as appropriate to a performed exam including one or more of the following: ?Automated exposure control ?Adjustment of the mA and/or kV according to patient size ?Use of iterative reconstruction technique FINDINGS: The pulmonary arterial system is adequately opacified. No filling defects are seen within the opacified branches of the pulmonary arterial system. Postsurgical changes are noted in the ascending aorta. Stents are also seen in the proximal left anterior descending and left circumflex coronary arteries. No acute abnormalities are identified in the aorta or its branch vessels. Areas of mild scar and dependent atelectasis are seen in the lower lungs. Additional scarring is noted in the left mid and upper lung. No suspicious pulmonary le sions are identified. The central airways are patent. There is no mediastinal, axillary or supraclavicular adenopathy. The chest wall and lower neck are normal in appearance. In the upper abdomen, retained epicardial pacing leads are noted. There is reflux of contrast material into the inferior vena cava and central hepatic venous system which may reflect underlying tricuspid insufficiency. Regional osseous structures are intact. Sternotomy wires are noted. IMPRESSION: No evidence of pulmonary embolus, and no acute radiographic abnormality Other findings as above . at 0834 Reported and signed by: Shea Miguel MD [facility] NAME: MARTHA PALACIO [id number] PHYS: Serina Holloway MD [place] [id number] : 1970 AGE: 52 SEX: M LOC: MarcelinaCTS PHONE #: [phone] EXAM DATE: 04/23/2022 STATUS: REG CLI FAX #:[phone] RAD #: D/C DT PAGE 1 Signed Report (CONTINUED) Patient Name: MARTHA PALACIO Unit No: [id number] EXAMS: CPT CODE: [id number] CTA CHEST 75339 (Continued) CC: Serina Mack MD Technologist: Krissy Ribera RT (R) (CT); Cec CTDI: DLP: Trnscrpt: 04/23/2022 (0834) [email or web address] [facility] NAME: MARTHA PALACIO [address] PHYS: [place] [address] : 1970 AGE: 52 SEX: M LOC: ISAK PHONE #: [phone] EXAM DATE: 04/23/2022 STATUS: REG CLI FAX #: [phone] RAD #: D/C DT PAGE 2 Signed Report Patient Name: MARTHA PALACIO Unit No: [id number] EXAMS: CPT CODE: [id number] CTA CHEST 40184 (Continued) Orig Print D/T: S: 04/23/2022 (0837) [facility] NAME: MARTHA PALACIO[address] PHYS: [place] [address] : 1970 AGE: 52 SEX: M LOC: ISAK PHONE #: [phone] EXAM DATE: 04/23/2022 STATUS: REG CLI FAX #: [phone] RAD #: D/C DT PAGE 3 Signed ReportPulmonary function tests, [id number] 18:05:54 Test Item Value Reference Range Interpretation Comments VC Pre (test code = 3.99 L 4.6-6.68 5374) VC Predicted (test code = 5372) VC LLN (test code = 5373) VC % Pre of 70.6 % Predicted (test code = 5375) TLC Pre (test code = 6.01 L 6.79-9.09 5416) TLC Predicted (test code = 5414) TLC LLN (test code = 5415) TLC % Pre of 75.7 % Predicted (test code = 5417) RV Pre (test code = 2.03 L 1.75-3.09 5402) RV Predicted (test code = 5400) RV LLN (test code = 5401) RV % Pre of 83.7 % Predicted (test code = 5403) RV % TLC Pre (test 33.69 % 26.04-44 code = 5409) RV % TLC Predicted (test code = 5407) RV % TLC LLN (test code = 5408) RV % TLC % Pre of 96.2 % Predicted (test code = 5410) R0.5IN Pre (test See_Comment [Automated message] code = 5514) The system Affle generated this result transmitted ref erence range: 3.06 - 3 .06 cmH2O*s/L. The reference range was not used to int erpret this result as normal/abnormal . R0.5IN Predicted (test code = 5512) R0.5IN LLN (test code = 5513) R0.5IN % Pre of 74.8 % Predicted (test code = 5515) FRCpl Pre (test code 2.91 L 2.81-4.78 = 5388) FRCpl % Predicted (test code = 5386) FRCpl % LLN (test code = 5387) FRCpl % Pre of 76.7 % Predicted (test code = 5389) ERV Pre (test code = 0.88 L 1.37-1.37 5381) ERV Predicted (test code = 5379) ERV LLN (test code = 5380) ERV % Pre of 64.3 % Predicted (test code = 5382) IC Pre (test code = 3.1 L 3.93-3.93 5395) IC Predicted (test code = 5393) IC LLN (test code = 5394) IC % Pre of 78.9 % Predicted (test code = 5396) sR0.5IN Pre (test cmH2O*s code = 5521) Raw Pre (test code = See_Comment [Autom ated message] 5507) The system Affle generated this result transmitted ref erence range: 3.06 - 3 .06 cmH2O*s/L. The reference range was not used to int erpret this result as normal/abnormal . Raw Predicted (test code = 5505) Raw LLN (test code = 5506) Raw % Pre of 110.8 % Predicted (test code = 5508) sGaw Predicted (test See_Comment [Autom ated message] code = 5528) The system Affle generated this result transmitted ref erence range: 0.08 - 0 .08 1/(cmH2O*s). Th e reference range was not used to int erpret this result as normal/abnormal . sGaw Predicted (test code = 5526) sGaw LLN (test code = 5527) sGaw % Pre of 105.4 % Predicted (test code = 5529) FEV1 Pre (test code 3.22 L 3.45-5.21 = 5348) FEV1 Predicted (test code = 5302) FEV1 LLN (test code = 5347) FEV1 % Pre of 74.4 % Predicted (test code = 5308) FVC Pre (test code = 4.28 L 4.6-6.68 5354) FVC Predicted (test code = 5307) FVC LLN (test code = 5353) FVC % Pre of 75.9 % Predicted (test code = 5355) FEV1/FVC % Pre (test 75.19 % 67.23-86.59 code = 5361) FEV1/FVC % Predicted (test code = 5359) FEV1/FVC % LLN (test code = 5360) FEV1/FVC % Pre of 97.8 % Predicted (test code = 5362) FEF 25-75% Pre (test 2.49 L/s 1.87-5.44 code = 5547) FEF 25-75% Predicted (test code = 5546) FEF 25-75% LLN (test code = 5545) FEF 25-75% % Pre of 68.1 % Predicted (test code = 5548) PEF Pre (test code = 9.63 L/s 7.96-13.13 5367) PEF Predicted (test code = 5310) PEF LLN (test code = 5366) PEF % Pre of 91.3 % Predicted (test code = 5368) MVV Pre (test code = 115.75 L/min 136.89-185.21 5590) MVV Predicted (test code = 5544) MVV LLN (test code = 5543) MVV % Pre of 71.9 % Predicted (test code = 5587) DLCO Pre (test code See_Comment [Automa penny message] = 5423) The system Affle generated this result transmitted ref erence range: 23.52 - 39.45 ml/(min*mmHg). The reference range was not used to int erpret this result as normal/abnormal . DLCO Predicted (test code = 5421) DLCO LLN (test code = 5422) DLCO % Pre of 89.8 % Predicted (test code = 5424) DL/VA Pre (test code See_Comment [Autom ated message] = 5437) The system Affle generated this result transmitted ref erence range: 3.00 - 5 .40 ml/(min*mmHg*L) . The reference range was not used to int erpret this result as normal/abnormal . DL/VA Predicted (test code = 5435) DL/VA LLN (test code = 5436) DL/VA % Pre of 113.6 % Predicted (test code = 5438) VA SB Pre (test code 5.92 L 6.23-8.96 = 5444) VA SB Predicted (test code = 5442) VA SB LLN (test code = 5443) VA SB % Pre of 78 % Predicted (test code = 5445) [facility], [id number] 18:05:54 Test Item Value Reference Range Interpretation Comments VC Pre (test code = 3.99 L 4.6-6.68 5374) VC Predicted (test code = 5372) VC LLN (test code = 5373) VC % Pre of 70.6 % Predicted (test code = 5375) TLC Pre (test code = 6.01 L 6.79-9.09 5416) TLC Predicted (test code = 5414) TLC LLN (test code = 5415) TLC % Pre of 75.7 % Predicted (test code = 5417) RV Pre (test code = 2.03 L 1.75-3.09 5402) RV Predicted (test code = 5400) RV LLN (test code = 5401) RV % Pre of 83.7 % Predicted (test code = 5403) RV % TLC Pre (test 33.69 % 26.04-44 code = 5409) RV % TLC Predicted (test code = 5407) RV % TLC LLN (test code = 5408) RV % TLC % Pre of 96.2 % Predicted (test code = 5410) R0.5IN Pre (test See_Comment [Automated message] code = 5514) The system Affle generated this result transmitted ref erence range: 3.06 - 3 .06 cmH2O*s/L. The reference range was not used to int erpret this result as normal/abnormal . R0.5IN Predicted (test code = 5512) R0.5IN LLN (test code = 5513) R0.5IN % Pre of 74.8 % Predicted (test code = 5515) FRCpl Pre (test code 2.91 L 2.81-4.78 = 5388) FRCpl % Predicted (test code = 5386) FRCpl % LLN (test code = 5387) FRCpl % Pre of 76.7 % Predicted (test code = 5389) ERV Pre (test code = 0.88 L 1.37-1.37 5381) ERV Predicted (test code = 5379) ERV LLN (test code = 5380) ERV % Pre of 64.3 % Predicted (test code = 5382) IC Pre (test code = 3.1 L 3.93-3.93 5395) IC Predicted (test code = 5393) IC LLN (test code = 5394) IC % Pre of 78.9 % Predicted (test code = 5396) sR0.5IN Pre (test cmH2O*s code = 5521) Raw Pre (test code = See_Comment [Autom ated message] 5507) The system Affle generated this result transmitted ref erence range: 3.06 - 3 .06 cmH2O*s/L. The reference range was not used to int erpret this result as normal/abnormal . Raw Predicted (test code = 5505) Raw LLN (test code = 5506) Raw % Pre of 110.8 % Predicted (test code = 5508) sGaw Predicted (test See_Comment [Autom ated message] code = 5528) The system Affle generated this result transmitted ref erence range: 0.08 - 0 .08 1/(cmH2O*s). Th e reference range was not used to int erpret this result as normal/abnormal . sGaw Predicted (test code = 5526) sGaw LLN (test code = 5527) sGaw % Pre of 105.4 % Predicted (test code = 5529) FEV1 Pre (test code 3.22 L 3.45-5.21 = 5348) FEV1 Predicted (test code = 5302) FEV1 LLN (test code = 5347) FEV1 % Pre of 74.4 % Predicted (test code = 5308) FVC Pre (test code = 4.28 L 4.6-6.68 5354) FVC Predicted (test code = 5307) FVC LLN (test code = 5353) FVC % Pre of 75.9 % Predicted (test code = 5355) FEV1/FVC % Pre (test 75.19 % 67.23-86.59 code = 5361) FEV1/FVC % Predicted (test code = 5359) FEV1/FVC % LLN (test code = 5360) FEV1/FVC % Pre of 97.8 % Predicted (test code = 5362) FEF 25-75% Pre (test 2.49 L/s 1.87-5.44 code = 5547) FEF 25-75% Predicted (test code = 5546) FEF 25-75% LLN (test code = 5545) FEF 25-75% % Pre of 68.1 % Predicted (test code = 5548) PEF Pre (test code = 9.63 L/s 7.96-13.13 5367) PEF Predicted (test code = 5310) PEF LLN (test code = 5366) PEF % Pre of 91.3 % Predicted (test code = 5368) MVV Pre (test code = 115.75 L/min 136.89-185.21 5590) MVV Predicted (test code = 5544) MVV LLN (test code = 5543) MVV % Pre of 71.9 % Predicted (test code = 5587) DLCO Pre (test code See_Comment [Automa penny message] = 5423) The system Affle generated this result transmitted ref erence range: 23.52 - 39.45 ml/(min*mmHg). The reference range was not used to int erpret this result as normal/abnormal . DLCO Predicted (test code = 5421) DLCO LLN (test code = 5422) DLCO % Pre of 89.8 % Predicted (test code = 5424) DL/VA Pre (test code See_Comment [Autom ated message] = 5437) The system Affle generated this result transmitted ref erence range: 3.00 - 5 .40 ml/(min*mmHg*L) . The reference range was not used to int erpret this result as normal/abnormal . DL/VA Predicted (test code = 5435) DL/VA LLN (test code = 5436) DL/VA % Pre of 113.6 % Predicted (test code = 5438) VA SB Pre (test code 5.92 L 6.23-8.96 = 5444) VA SB Predicted (test code = 5442) VA SB LLN (test code = 5443) VA SB % Pre of 78 % Predicted (test code = 5445) [facility], [id number] 18:05:54 Test Item Value Reference Range Interpretation Comments VC Pre (test code = 3.99 L 4.60-6.68 5374) VC Predicted (test code = 5372) VC LLN (test code = 5373) VC % Pre of 70.6 % Predicted (test code = 5375) TLC Pre (test code = 6.01 L 6.79-9.09 5416) TLC Predicted (test code = 5414) TLC LLN (test code = 5415) TLC % Pre of 75.7 % Predicted (test code = 5417) RV Pre (test code = 2.03 L 1.75-3.09 5402) RV Predicted (test code = 5400) RV LLN (test code = 5401) RV % Pre of 83.7 % Predicted (test code = 5403) RV % TLC Pre (test 33.69 % 26.04-44.00 code = 5409) RV % TLC Predicted (test code = 5407) RV % TLC LLN (test code = 5408) RV % TLC % Pre of 96.2 % Predicted (test code = 5410) R0.5IN Pre (test See_Comment [Automated message] code = 5514) The system Affle generated this result transmitted ref erence range: 3.06 - 3 .06 cmH2O*s/L. The reference range was not used to int erpret this result as normal/abnormal . R0.5IN Predicted (test code = 5512) R0.5IN LLN (test code = 5513) R0.5IN % Pre of 74.8 % Predicted (test code = 5515) FRCpl Pre (test code 2.91 L 2.81-4.78 = 5388) FRCpl % Predicted (test code = 5386) FRCpl % LLN (test code = 5387) FRCpl % Pre of 76.7 % Predicted (test code = 5389) ERV Pre (test code = 0.88 L 1.37-1.37 5381) ERV Predicted (test code = 5379) ERV LLN (test code = 5380) ERV % Pre of 64.3 % Predicted (test code = 5382) IC Pre (test code = 3.1 L 3.93-3.93 5395) IC Predicted (test code = 5393) IC LLN (test code = 5394) IC % Pre of 78.9 % Predicted (test code = 5396) sR0.5IN Pre (test cmH2O*s code = 5521) Raw Pre (test code = See_Comment [Autom ated message] 5507) The system Affle generated this result transmitted ref erence range: 3.06 - 3 .06 cmH2O*s/L. The reference range was not used to int erpret this result as normal/abnormal . Raw Predicted (test code = 5505) Raw LLN (test code = 5506) Raw % Pre of 110.8 % Predicted (test code = 5508) sGaw Predicted (test See_Comment [Autom ated message] code = 5528) The system Affle generated this result transmitted ref erence range: 0.08 - 0 .08 1/(cmH2O*s). Th e reference range was not used to int erpret this result as normal/abnormal . sGaw Predicted (test code = 5526) sGaw LLN (test code = 5527) sGaw % Pre of 105.4 % Predicted (test code = 5529) FEV1 Pre (test code 3.22 L 3.45-5.21 = 5348) FEV1 Predicted (test code = 5302) FEV1 LLN (test code = 5347) FEV1 % Pre of 74.4 % Predicted (test code = 5308) FVC Pre (test code = 4.28 L 4.60-6.68 5354) FVC Predicted (test code = 5307) FVC LLN (test code = 5353) FVC % Pre of 75.9 % Predicted (test code = 5355) FEV1/FVC % Pre (test 75.19 % 67.23-86.59 code = 5361) FEV1/FVC % Predicted (test code = 5359) FEV1/FVC % LLN (test code = 5360) FEV1/FVC % Pre of 97.8 % Predicted (test code = 5362) FEF 25-75% Pre (test 2.49 L/s 1.87-5.44 code = 5547) FEF 25-75% Predicted (test code = 5546) FEF 25-75% LLN (test code = 5545) FEF 25-75% % Pre of 68.1 % Predicted (test code = 5548) PEF Pre (test code = 9.63 L/s 7.96-13.13 5367) PEF Predicted (test code = 5310) PEF LLN (test code = 5366) PEF % Pre of 91.3 % Predicted (test code = 5368) MVV Pre (test code = 115.75 L/min 136.89-185.21 5590) MVV Predicted (test code = 5544) MVV LLN (test code = 5543) MVV % Pre of 71.9 % Predicted (test code = 5587) DLCO Pre (test code See_Comment [Automa penny message] = 5429) The system [employer] generated this result transmitted ref erence range: 23.52 - 39.45 ml/(min*mmHg). The reference range was not used to int erpret this result as normal/abnormal . DLCO Predicted (test code = 5421) DLCO LLN (test code = 5422) DLCO % Pre of 89.8 % Predicted (test code = 5424) DL/VA Pre (test code See_Comment [Autom ated message] = 5437) The system [employer] generated this result transmitted ref erence range: 3.00 - 5 .40 ml/(min*mmHg*L) . The reference range was not used to int erpret this result as normal/abnormal . DL/VA Predicted (test code = 5435) DL/VA LLN (test code = 5436) DL/VA % Pre of 113.6 % Predicted (test code = 5438) VA SB Pre (test code 5.92 L 6.23-8.96 = 5444) VA SB Predicted (test code = 5442) VA SB LLN (test code = 5443) VA SB % Pre of 78 % Predicted (test code = 5445) [facility] [id number] 18:05:54 Test Item Value Reference Range Interpretation Comments VC Pre (test code = 3.99 L 4.60-6.68 5374) VC Predicted (test code = 5372) VC LLN (test code = 5373) VC % Pre of 70.6 % Predicted (test code = 5375) TLC Pre (test code = 6.01 L 6.79-9.09 5416) TLC Predicted (test code = 5414) TLC LLN (test code = 5415) TLC % Pre of 75.7 % Predicted (test code = 5417) RV Pre (test code = 2.03 L 1.75-3.09 5402) RV Predicted (test code = 5400) RV LLN (test code = 5401) RV % Pre of 83.7 % Predicted (test code = 5403) RV % TLC Pre (test 33.69 % 26.04-44.00 code = 5409) RV % TLC Predicted (test code = 5407) RV % TLC LLN (test code = 5408) RV % TLC % Pre of 96.2 % Predicted (test code = 5410) R0.5IN Pre (test See_Comment [Automated message] code = 5514) The system Aff[employer] generated this result transmitted ref erence range: 3.06 - 3 .06 cmH2O*s/L. The reference range was not used to int erpret this result as normal/abnormal . R0.5IN Predicted (test code = 5512) R0.5IN LLN (test code = 5513) R0.5IN % Pre of 74.8 % Predicted (test code = 5515) FRCpl Pre (test code 2.91 L 2.81-4.78 = 5388) FRCpl % Predicted (test code = 5386) FRCpl % LLN (test code = 5387) FRCpl % Pre of 76.7 % Predicted (test code = 5389) ERV Pre (test code = 0.88 L 1.37-1.37 5381) ERV Predicted (test code = 5379) ERV LLN (test code = 5380) ERV % Pre of 64.3 % Predicted (test code = 5382) IC Pre (test code = 3.1 L 3.93-3.93 5395) IC Predicted (test code = 5393) IC LLN (test code = 5394) IC % Pre of 78.9 % Predicted (test code = 5396) sR0.5IN Pre (test cmH2O*s code = 5521) Raw Pre (test code = See_Comment [Autom ated message] 5507) The system [employer] generated this result transmitted ref erence range: 3.06 - 3 .06 cmH2O*s/L. The reference range was not used to int erpret this result as normal/abnormal . Raw Predicted (test code = 5505) Raw LLN (test code = 5506) Raw % Pre of 110.8 % Predicted (test code = 5508) sGaw Predicted (test See_Comment [Autom ated message] code = 5528) The system [employer] generated this result transmitted ref erence range: 0.08 - 0 .08 1/(cmH2O*s). Th e reference range was not used to int erpret this result as normal/abnormal . sGaw Predicted (test code = 5526) sGaw LLN (test code = 5527) sGaw % Pre of 105.4 % Predicted (test code = 5529) FEV1 Pre (test code 3.22 L 3.45-5.21 = 5348) FEV1 Predicted (test code = 5302) FEV1 LLN (test code = 5347) FEV1 % Pre of 74.4 % Predicted (test code = 5308) FVC Pre (test code = 4.28 L 4.60-6.68 5354) FVC Predicted (test code = 5307) FVC LLN (test code = 5353) FVC % Pre of 75.9 % Predicted (test code = 5355) FEV1/FVC % Pre (test 75.19 % 67.23-86.59 code = 5361) FEV1/FVC % Predicted (test code = 5359) FEV1/FVC % LLN (test code = 5360) FEV1/FVC % Pre of 97.8 % Predicted (test code = 5362) FEF 25-75% Pre (test 2.49 L/s 1.87-5.44 code = 5547) FEF 25-75% Predicted (test code = 5546) FEF 25-75% LLN (test code = 5545) FEF 25-75% % Pre of 68.1 % Predicted (test code = 5548) PEF Pre (test code = 9.63 L/s 7.96-13.13 5367) PEF Predicted (test code = 5310) PEF LLN (test code = 5366) PEF % Pre of 91.3 % Predicted (test code = 5368) MVV Pre (test code = 115.75 L/min 136.89-185.21 5590) MVV Predicted (test code = 5544) MVV LLN (test code = 5543) MVV % Pre of 71.9 % Predicted (test code = 5587) DLCO Pre (test code See_Comment [Automa penny message] = 5423) The system Aff[employer] generated this result transmitted ref erence range: 23.52 - 39.45 ml/(min*mmHg). The reference range was not used to int erpret this result as normal/abnormal . DLCO Predicted (test code = 5421) DLCO LLN (test code = 5422) DLCO % Pre of 89.8 % Predicted (test code = 5424) DL/VA Pre (test code See_Comment [Autom ated message] = 5437) The system [employer] generated this result transmitted ref erence range: 3.00 - 5 .40 ml/(min*mmHg*L) . The reference range was not used to int erpret this result as normal/abnormal . DL/VA Predicted (test code = 5435) DL/VA LLN (test code = 5436) DL/VA % Pre of 113.6 % Predicted (test code = 5438) VA SB Pre (test code 5.92 L 6.23-8.96 = 5444) VA SB Predicted (test code = 5442) VA SB LLN (test code = 5443) VA SB % Pre of 78 % Predicted (test code = 5445) [facility] [id number] 18:05:54 Test Item Value Reference Range Interpretation Comments VC Pre (test code = 3.99 L 4.60-6.68 5374) VC Predicted (test code = 5372) VC LLN (test code = 5373) VC % Pre of 70.6 % Predicted (test code = 5375) TLC Pre (test code = 6.01 L 6.79-9.09 5416) TLC Predicted (test code = 5414) TLC LLN (test code = 5415) TLC % Pre of 75.7 % Predicted (test code = 5417) RV Pre (test code = 2.03 L 1.75-3.09 5402) RV Predicted (test code = 5400) RV LLN (test code = 5401) RV % Pre of 83.7 % Predicted (test code = 5403) RV % TLC Pre (test 33.69 % 26.04-44.00 code = 5409) RV % TLC Predicted (test code = 5407) RV % TLC LLN (test code = 5408) RV % TLC % Pre of 96.2 % Predicted (test code = 5410) R0.5IN Pre (test See_Comment [Automated message] code = 5514) The system Aff[employer] generated this result transmitted ref erence range: 3.06 - 3 .06 cmH2O*s/L. The reference range was not used to int erpret this result as normal/abnormal . R0.5IN Predicted (test code = 5512) R0.5IN LLN (test code = 5513) R0.5IN % Pre of 74.8 % Predicted (test code = 5515) FRCpl Pre (test code 2.91 L 2.81-4.78 = 5388) FRCpl % Predicted (test code = 5386) FRCpl % LLN (test code = 5387) FRCpl % Pre of 76.7 % Predicted (test code = 5389) ERV Pre (test code = 0.88 L 1.37-1.37 5381) ERV Predicted (test code = 5379) ERV LLN (test code = 5380) ERV % Pre of 64.3 % Predicted (test code = 5382) IC Pre (test code = 3.1 L 3.93-3.93 5395) IC Predicted (test code = 5393) IC LLN (test code = 5394) IC % Pre of 78.9 % Predicted (test code = 5396) sR0.5IN Pre (test cmH2O*s code = 5521) Raw Pre (test code = See_Comment [Autom ated message] 5507) The system [employer] generated this result transmitted ref erence range: 3.06 - 3 .06 cmH2O*s/L. The reference range was not used to int erpret this result as normal/abnormal . Raw Predicted (test code = 5505) Raw LLN (test code = 5506) Raw % Pre of 110.8 % Predicted (test code = 5508) sGaw Predicted (test See_Comment [Autom ated message] code = 5528) The system Aff[employer] generated this result transmitted ref erence range: 0.08 - 0 .08 1/(cmH2O*s). Th e reference range was not used to int erpret this result as normal/abnormal . sGaw Predicted (test code = 5526) sGaw LLN (test code = 5527) sGaw % Pre of 105.4 % Predicted (test code = 5529) FEV1 Pre (test code 3.22 L 3.45-5.21 = 5348) FEV1 Predicted (test code = 5302) FEV1 LLN (test code = 5347) FEV1 % Pre of 74.4 % Predicted (test code = 5308) FVC Pre (test code = 4.28 L 4.60-6.68 5354) FVC Predicted (test code = 5307) FVC LLN (test code = 5353) FVC % Pre of 75.9 % Predicted (test code = 5355) FEV1/FVC % Pre (test 75.19 % 67.23-86.59 code = 5361) FEV1/FVC % Predicted (test code = 5359) FEV1/FVC % LLN (test code = 5360) FEV1/FVC % Pre of 97.8 % Predicted (test code = 5362) FEF 25-75% Pre (test 2.49 L/s 1.87-5.44 code = 5547) FEF 25-75% Predicted (test code = 5546) FEF 25-75% LLN (test code = 5545) FEF 25-75% % Pre of 68.1 % Predicted (test code = 5548) PEF Pre (test code = 9.63 L/s 7.96-13.13 5367) PEF Predicted (test code = 5310) PEF LLN (test code = 5366) PEF % Pre of 91.3 % Predicted (test code = 5368) MVV Pre (test code = 115.75 L/min 136.89-185.21 5590) MVV Predicted (test code = 5544) MVV LLN (test code = 5543) MVV % Pre of 71.9 % Predicted (test code = 5587) DLCO Pre (test code See_Comment [Automa penny message] = 5423) The system Aff[employer] generated this result transmitted ref erence range: 23.52 - 39.45 ml/(min*mmHg). The reference range was not used to int erpret this result as normal/abnormal . DLCO Predicted (test code = 5421) DLCO LLN (test code = 5422) DLCO % Pre of 89.8 % Predicted (test code = 5424) DL/VA Pre (test code See_Comment [Autom ated message] = 5437) The system Aff[employer] generated this result transmitted ref erence range: 3.00 - 5 .40 ml/(min*mmHg*L) . The reference range was not used to int erpret this result as normal/abnormal . DL/VA Predicted (test code = 5435) DL/VA LLN (test code = 5436) DL/VA % Pre of 113.6 % Predicted (test code = 5438) VA SB Pre (test code 5.92 L 6.23-8.96 = 5444) VA SB Predicted (test code = 5442) VA SB LLN (test code = 5443) VA SB % Pre of 78 % Predicted (test code = 5445) [id number]:55[facility]00 Test Item Value Reference Range Interpretation Comments Surgical pathology see emr pathology study (test code = report. 88485-3) [facility] [id number] 06:55:00 Test Item Value Reference Range Interpretation Comments Surgical pathology see emr pathology study (test code = report. 21719-4) [facility] W Auto Differential panel - [id number] 09:10:00 Test Item Value Reference Range Interpretation Comments white blood count (test code = 6.2 K/uL 4.0-12.3 white blood count) red blood count (test code = red 5.02 M/uL 3.80-5.80 blood count) hemoglobin (test code = 14.4 g/dL 11.7-17.2 hemoglobin) hematocrit (test code = 44.4 % 35.0-51.0 hematocrit) MCV [Entitic volume] (test code = 88.4 fL 83.0-100.0 70231-0) mean corpuscular hemoglobin (test 28.7 pg 26.8-33.4 code = mean corpuscular hemoglobin) mean corpuscular HGB conc (test 32.4 g/dL 30.0-35.0 code = mean corpuscular HGB conc) red cell distribution width (test 14.5 % 12.0-14.0 H code = red cell distribution width) platelet count (test code = 185 K/uL 175-450 platelet count) mean platelet volume (test code = 9.6 fL 9.4-12.6 mean platelet volume) Segmented neutrophils/100 63.6 % 44.7-82.4 leukocytes in Blood (test code = 22400-4) Immature granulocytes [#/volume] 0.02 K/uL 0.00-0.03 in Blood (test code = 64321-5) lymphocyte% (test code = 26.3 % 10.0-50.0 lymphocyte%) mono % (test code = mono %) 7.6 % 3.9-13.4 eos % (test code = eos %) 1.5 % 0.0-6.4 basophil % (test code = basophil 0.7 % 0.2-1.2 %) Band form neutrophils [#/volume] 3.91 K/uL 1.78-5.38 in Blood (test code = 00528-3) Lymphocytes [#/volume] in Specimen 1.62 K/uL 1.32-3.57 by Automated count (test code = 22796-6) mono # (test code = mono #) 0.47 K/uL 0.30-0.82 eos # (test code = eos #) 0.09 K/uL 0.04-0.54 basophil # (test code = basophil 0.04 K/uL 0.01-0.08 #) NRBC% (test code = NRBC%) 0 /100 WBC 0-0.2 NRBC# (test code = NRBC#) 0 K/uL [facility] - [facility] or Plasma 2022-01-14 09:10:00 Test Item Value Reference Range Interpretation Comments Glucose [Mass/volume] in Serum or 95 mg/dL 74-106 Plasma (test code = 2345-7) Urea nitrogen [Mass/volume] in 16 mg/dL 6-20 Serum or Plasma (test code = 3094-0) osmolality calculated,serum (test 280 mOsm/kg 280-300 code = osmolality calculated,serum) creatinine (test code = 1.40 mg/dL 0.70-1.20 H creatinine) glomerular filtration rate (test 53.01 L code = glomerular filtration rate) Urea nitrogen/Creatinine [Mass 11.4 12.0-20.0 L Ratio] in Serum or Plasma (test code = 3097-3) sodium level (test code = sodium 140 mmol/L 135-145 level) potassium level (test code = 4.4 mmol/L 3.5-5.2 potassium level) chloride level (test code = 103 mmol/L 98-108 chloride level) CO2 (test code = CO2) 26 mmol/L 21-32 anion gap (test code = anion gap) 15.4 mEq/L 12.0-20.0 calcium level (test code = 9.4 mg/dL 8.6-10.0 calcium level) total protein (test code = total 7.8 g/dL 6.6-8.7 protein) albumin (test code = albumin) 4.9 g/dL 3.5-5.2 globulin (test code = globulin) 2.9 g/dL 1.5-4.5 A/G ratio (test code = A/G ratio) 1.7 >1.0 bilirubin,total (test code = 0.9 mg/dL 0.0-1.2 bilirubin,total) AST/SGOT (test code = AST/SGOT) 19 U/L 15-40 Alanine aminotransferase 19 U/L 0-41 [Enzymatic activity/volume] in Serum or Plasma (test code = 1742-6) Alkaline phosphatase [Enzymatic 90 U/L 40-130 activity/volume] in Serum or Plasma (test code = 6768-6) [facility] unspecified - [id number] 00:00:00NeutrophilsBandLymphocyteAtypical LymphMonocyteEosinophilBasophilMetamyelocyteMyelocytePromyelocyteBlastsNucleated Red Blood CellAbs Neutrophil Count (Man)Abs Lymph Count (Man)Abs Monocyte Count (Man)Abs Eosinophil Count (Man)Abs Basophil Count (Man)Platelet EstimatePlatelet MorphologyHypochromasiaAnisocytosisTarget CellsOvalocytesStomatocytMethodist Rehabilitation CenterARS-CoV+SARS-CoV-2 (COVID-19) Ag [Presence] in Respiratory specimen by Rapid [id number] 09:53:25 Test Item Value Reference Range Interpretation Comments SARS-CoV - 2 (test code = SARS-CoV - negative 2) [facility] [id number] 05:20:00 Test Item Value Reference Range Interpretation Comments Surgical pathology see separate pathology study (test code = report. 78340-1) [facility] [id number] 06:39:00 Test Item Value Reference Range Interpretation Comments Surgical pathology see separate pathology study (test code = report. 26496-0) [facility] W Auto Differential panel - [id number] 02:58:00 Test Item Value Reference Range Interpretation Comments white blood count (test code = 8.9 K/uL 4.0-12.3 white blood count) red blood count (test code = red 4.41 M/uL 3.80-5.80 blood count) hemoglobin (test code = 11.9 g/dL 11.7-17.2 hemoglobin) hematocrit (test code = 38.3 % 35.0-51.0 hematocrit) Erythrocyte mean corpuscular 86.8 fL 83-100 volume [Entitic volume] (test code = 98871-8) mean corpuscular hemoglobin (test 27.0 pg 26.8-33.4 code = mean corpuscular hemoglobin) mean corpuscular HGB conc (test 31.1 g/dL 30-35 code = mean corpuscular HGB conc) red cell distribution width (test 15.6 % 12.0-14.0 H code = red cell distribution width) platelet count (test code = 170 K/uL 175-450 L platelet count) mean platelet volume (test code = 10.6 fL 9.4-12.6 mean platelet volume) Neutrophils.segmented/100 73.6 % 44.7-82.4 leukocytes in Blood (test code = 41489-9) Granulocytes Immature [#/volume] 0.0 K/uL 0.0-0.03 in Blood (test code = 05226-5) lymphocyte% (test code = 17.2 % 10.0-50.0 lymphocyte%) mono % (test code = mono %) 7.7 % 3.9-13.4 eos % (test code = eos %) 0.9 % 0.0-6.4 Basophils/100 leukocytes in 0.2 % 0.2-1.2 Unspecified specimen (test code = 04193-9) Neutrophils.band form [#/volume] 6.55 K/uL 1.78-5.38 H in Blood (test code = 14225-1) Lymphocytes [#/volume] in 1.5 K/uL 1.32-3.57 Unspecified specimen by Automated count (test code = 31892-0) mono # (test code = mono #) 0.69 K/uL 0.30-0.82 eos # (test code = eos #) 0.08 K/uL 0.04-0.54 basophil # (test code = basophil 0.02 K/uL 0.01-0.08 #) NRBC% (test code = NRBC%) 0 /100 WBC 0-0.2 NRBC# (test code = NRBC#) 0 K/uL [facility] - Serum or Plasma 2019-04-26 02:58:00 Test Item Value Reference Range Interpretation Comments Glucose [Mass/volume] in Serum or 93 mg/dL 74-106 Plasma (test code = 2345-7) Urea nitrogen [Mass/volume] in 14 mg/dL 6-20 Serum or Plasma (test code = 3094-0) osmolality calculated, serum (test 278 280-300 L code = osmolality calculated, serum) creatinine (test code = 1.3 mg/dL 0.70-1.20 H creatinine) glomerular filtration rate (test 58.20 L code = glomerular filtration rate) Urea nitrogen/Creatinine [Mass 10.8 12-20 L Ratio] in Serum or Plasma (test code = 3097-3) sodium level (test code = sodium 139 mmol/L 135-145 level) potassium level (test code = 4.3 mmol/L 3.5-5.2 potassium level) chloride level (test code = 100 mmol/L 98-108 chloride level) CO2 (test code = CO2) 28 mmol/L 21-32 anion gap (test code = anion gap) 15.3 mEq/L 12-20 calcium level (test code = calcium 8.9 mg/dL 8.6-10.0 level) total protein (test code = total 6.8 g/dL 6.6-8.7 protein) albumin (test code = albumin) 4.1 g/dL 3.5-5.2 globulin (test code = globulin) 2.7 gm/dL A/G ratio (test code = A/G ratio) 1.5 >1.0 bilirubin,total (test code = 0.9 mg/dL 0.0-1.2 bilirubin,total) AST/SGOT (test code = AST/SGOT) 22 U/L 15-40 Alanine aminotransferase 29 U/L 0-41 [Enzymatic activity/volume] in Serum or Plasma (test code = 1742-6) Alkaline phosphatase [Enzymatic 58 U/L 40-130 activity/volume] in Serum or Plasma (test code = 6768-6) [facility] W Auto Differential panel - [id number] 02:54:00 Test Item Value Reference Range Interpretation Comments white blood count (test code = 11.5 K/uL 4.0-12.3 white blood count) red blood count (test code = red 4.38 M/uL 3.80-5.80 blood count) hemoglobin (test code = 12.0 g/dL 11.7-17.2 hemoglobin) hematocrit (test code = 38.0 % 35.0-51.0 hematocrit) Erythrocyte mean corpuscular 86.8 fL 83-100 volume [Entitic volume] (test code = 68186-4) mean corpuscular hemoglobin (test 27.4 pg 26.8-33.4 code = mean corpuscular hemoglobin) mean corpuscular HGB conc (test 31.6 g/dL 30-35 code = mean corpuscular HGB conc) red cell distribution width (test 15.2 % 12.0-14.0 H code = red cell distribution width) platelet count (test code = 179 K/uL 175-450 platelet count) mean platelet volume (test code = 10.6 fL 9.4-12.6 mean platelet volume) Neutrophils.segmented/100 82.7 % 44.7-82.4 H leukocytes in Blood (test code = 48320-2) Granulocytes Immature [#/volume] 0.0 K/uL 0.0-0.03 in Blood (test code = 26205-8) lymphocyte% (test code = 9.0 % 10.0-50.0 L lymphocyte%) mono % (test code = mono %) 7.9 % 3.9-13.4 eos % (test code = eos %) 0 % 0.0-6.4 Basophils/100 leukocytes in 0.1 % 0.2-1.2 L Unspecified specimen (test code = 43522-8) Neutrophils.band form [#/volume] 9.51 K/uL 1.78-5.38 H in Blood (test code = 79517-0) Lymphocytes [#/volume] in 1.0 K/uL 1.32-3.57 L Unspecified specimen by Automated count (test code = 34696-9) mono # (test code = mono #) 0.91 K/uL 0.30-0.82 H eos # (test code = eos #) 0.00 K/uL 0.04-0.54 L basophil # (test code = basophil 0.01 K/uL 0.01-0.08 #) NRBC% (test code = NRBC%) 0 /100 WBC 0-0.2 NRBC# (test code = NRBC#) 0 K/uL [facility], [id number] 02:54:00 NeutrophilsBandLymphocyteAtypical LymphMonocyteEosinophilBasophilMetamyelocyteMyelocytePlatelet EstimatePlatelet MorphologyHypochromasiaPoikilocytosisAnisocytosisMicrocytosisOvalocytesToxic VacuolationMemorial [facility] GroupComprehensive metabolic 2000 panel - Serum or [id number] 02:54:00 Test Item Value Reference Range Interpretation Comments Glucose [Mass/volume] in Serum or 137 mg/dL 74-106 H Plasma (test code = 2345-7) Urea nitrogen [Mass/volume] in 17 mg/dL 6-20 Serum or Plasma (test code = 3094-0) osmolality calculated, serum (test 281 280-300 code = osmolality calculated, serum) creatinine (test code = 1.4 mg/dL 0.70-1.20 H creatinine) glomerular filtration rate (test 53.43 L code = glomerular filtration rate) Urea nitrogen/Creatinine [Mass 12.1 12-20 Ratio] in Serum or Plasma (test code = 3097-3) sodium level (test code = sodium 139 mmol/L 135-145 level) potassium level (test code = 4.5 mmol/L 3.5-5.2 potassium level) chloride level (test code = 104 mmol/L 98-108 chloride level) CO2 (test code = CO2) 25 mmol/L 21-32 anion gap (test code = anion gap) 14.5 mEq/L 12-20 calcium level (test code = calcium 9.0 mg/dL 8.6-10.0 level) total protein (test code = total 6.9 g/dL 6.6-8.7 protein) albumin (test code = albumin) 4.1 g/dL 3.5-5.2 globulin (test code = globulin) 2.8 gm/dL A/G ratio (test code = A/G ratio) 1.5 >1.0 bilirubin,total (test code = 0.7 mg/dL 0.0-1.2 bilirubin,total) AST/SGOT (test code = AST/SGOT) 38 U/L 15-40 Alanine aminotransferase 40 U/L 0-41 [Enzymatic activity/volume] in Serum or Plasma (test code = 1742-6) Alkaline phosphatase [Enzymatic 62 U/L 40-130 activity/volume] in Serum or Plasma (test code = 6768-6) [facility] W Auto Differential panel - [id number] 10:58:00 Test Item Value Reference Range Interpretation Comments white blood count (test code = 9.5 K/uL 4.0-12.3 white blood count) red blood count (test code = red 5.30 M/uL 3.80-5.80 blood count) hemoglobin (test code = 14.4 g/dL 11.7-17.2 hemoglobin) hematocrit (test code = 45.1 % 35.0-51.0 hematocrit) Erythrocyte mean corpuscular 85.1 fL 83-100 volume [Entitic volume] (test code = 22849-9) mean corpuscular hemoglobin (test 27.2 pg 26.8-33.4 code = mean corpuscular hemoglobin) mean corpuscular HGB conc (test 31.9 g/dL 30-35 code = mean corpuscular HGB conc) red cell distribution width (test 14.7 % 12.0-14.0 H code = red cell distribution width) platelet count (test code = 239 K/uL 175-450 platelet count) mean platelet volume (test code = 9.7 fL 9.4-12.6 mean platelet volume) Neutrophils.segmented/100 68.3 % 44.7-82.4 leukocytes in Blood (test code = 99676-5) Granulocytes Immature [#/volume] 0.1 K/uL 0.0-0.03 H in Blood (test code = 42538-6) lymphocyte% (test code = 22.1 % 10.0-50.0 lymphocyte%) mono % (test code = mono %) 8.1 % 3.9-13.4 eos % (test code = eos %) 0.6 % 0.0-6.4 Basophils/100 leukocytes in 0.4 % 0.2-1.2 Unspecified specimen (test code = 72160-8) Neutrophils.band form [#/volume] 6.48 K/uL 1.78-5.38 H in Blood (test code = 22980-4) Lymphocytes [#/volume] in 2.1 K/uL 1.32-3.57 Unspecified specimen by Automated count (test code = 12566-3) mono # (test code = mono #) 0.77 K/uL 0.30-0.82 eos # (test code = eos #) 0.06 K/uL 0.04-0.54 basophil # (test code = basophil 0.04 K/uL 0.01-0.08 #) NRBC% (test code = NRBC%) 0 /100 WBC 0-0.2 NRBC# (test code = NRBC#) 0 K/uL [facility], [id number] 10:58:00 NeutrophilsBandLymphocyteAtypical LymphMonocytePlatelet EstimatePlatelet MorphologyMicrocytosisDohleBodiesToxic VacuolationMer[facility] Comprehensive metabolic 2000 panel - Serum or [id number] 10:58:00 Test Item Value Reference Range Interpretation Comments Glucose [Mass/volume] in Serum or 95 mg/dL 74-106 Plasma (test code = 2345-7) Urea nitrogen [Mass/volume] in 14 mg/dL 6-20 Serum or Plasma (test code = 3094-0) osmolality calculated, serum (test 274 280-300 L code = osmolality calculated, serum) creatinine (test code = 1.7 mg/dL 0.70-1.20 H creatinine) glomerular filtration rate (test 42.70 L code = glomerular filtration rate) Urea nitrogen/Creatinine [Mass 8.2 12-20 L Ratio] in Serum or Plasma (test code = 3097-3) sodium level (test code = sodium 137 mmol/L 135-145 level) potassium level (test code = 4.2 mmol/L 3.5-5.2 potassium level) chloride level (test code = 98 mmol/L 98-108 chloride level) CO2 (test code = CO2) 28 mmol/L 21-32 anion gap (test code = anion gap) 15.2 mEq/L 12-20 calcium level (test code = calcium 9.2 mg/dL 8.6-10.0 level) total protein (test code = total 7.8 g/dL 6.6-8.7 protein) albumin (test code = albumin) 4.8 g/dL 3.5-5.2 globulin (test code = globulin) 3.0 gm/dL A/G ratio (test code = A/G ratio) 1.6 >1.0 bilirubin,total (test code = 0.6 mg/dL 0.0-1.2 bilirubin,total) AST/SGOT (test code = AST/SGOT) 16 U/L 15-40 Alanine aminotransferase 18 U/L 0-41 [Enzymatic activity/volume] in Serum or Plasma (test code = 1742-6) Alkaline phosphatase [Enzymatic 76 U/L 40-130 activity/volume] in Serum or Plasma (test code = 6768-6) [facility] [id number] 12:13:00 Test Item Value Reference Range Interpretation Comments CK (test code = CK) 116 U/L 39-308 N Troponin [id number] 12:13:00 Test Item Value Reference Range Interpretation Comments Troponin T (test code = MAYANK) <0.010 ng/mL 0.000-0.090 N XR CHEST 1 [id number] 14:48:24XR CHEST 1 VIEWLOCATION: [id number]: chest radiograph 08/05/2017INDICATION: pre cardiac cathDISCUSSION:A single AP chest radiograph was submitted for interpretation. Median sternotomy changes are not ed.Focal opacity along the upper left heart border is indeterminate.The lungs are otherwise grossly clear.The cardiac silhouette is enlarged, but stable. Osseous structures are stable.IMPRESSION:Stable, enlarged cardiac silhouette. Indeterminate focal opacity alongthe upper left heart border can be further evaluated withcontrast-enhanced chest CT.Partial Thromboplastin [id number] 17:11:00 Test Item Value Reference Range Interpretation Comments aPTT (test code = PTT) 30.00 seconds 24.39-37.25 N Prothrombin [id number] 17:11:00 Test Item Value Reference Range Interpretation Comments PT (test code = PT) 10.60 seconds 9.78-13.35 N INR (test code = INR) 0.94 Ratio 0.6-1.2 N CBC with [id number] 17:06:00 Test Item Value Reference Range Interpretation Comments WBC (test code = WBC) 6.1 K/cumm 4.4-10.5 N RBC (test code = RBC) 4.34 M/cumm 4.10-5.70 N Hemoglobin (test code = HGB) 11.7 gm/dL 13.4-17.4 L Hematocrit (test code = HCT) 36.4 % 38.7-52.0 L MCV (test code = MCV) 83.9 fL 80-100 N MCH (test code = MCH) 27.0 pg 27.0-32.5 N MCHC (test code = MCHC) 32.2 g/dL 32.0-37.5 N RDW (test code = RDW) 14.5 % 11.5-14.5 N Platelet Count (test code = 280 K/cumm 140-440 N PLTCT) MPV (test code = MPV) 7.2 fL Diff Method (test code = DIFFM) Auto Neutrophil (test code = NEUT) 60.2 % 36-70 N Lymphocyte (test code = LYMPH) 30.6 % 12-44 N Monocyte (test code = MONO) 5.5 % 0-11 N Eosinophil (test code = EOS) 3.0 % 0-7 N Basophil (test code = BASO) 0.7 % 0-2 N Neutro Abs (test code = ANEUT) 3.7 K/cumm 1.6-7.4 N Lymph Abs (test code = ALYMPH) 1.9 K/cumm 0.5-4.6 N Attala Abs (test code = AMONO) 0.3 K/cumm 0.0-1.2 N Eos Abs (test code = AEOS) 0.18 K/cumm 0.00-0.74 N Baso Abs (test code = ABASO) 0.0 K/cumm 0.00-0.21 N Comprehensive Metabolic [id number] 17:01:00 Test Item Value Reference Range Interpretation Comments Sodium (test code = 138 mmol/L 135-145 N NA) Potassium (test 4.0 mmol/L 3.5-5.1 N code = K) Chloride (test code 101 mmol/L 98-105 N = CL) Carbon Dioxide 28 mmol/L 22-29 N (test code = CO2) Glucose (test code 93 mg/dL 70-115 N = GLU) Blood Urea Nitrogen 7 mg/dL 6-20 N (test code = BUN) Creatinine (test 1.1 mg/dL 0.7-1.2 N code = CREAT) Calcium (test code 8.9 mg/dL 8.3-10.5 N = CA) Prot Total (test 7.8 g/dL 6.4-8.3 N code = TP) Albumin (test code 4.5 g/dL 3.5-5.2 N = ALB) A/G Ratio (test 1.4 Ratio code = AGRATIO) Globulin (test code 3.3 2.9-3.1 H = GLOB) Bili Total (test 0.3 mg/dL 0.1-0.9 N code = TBIL) Alk Phos (test code 102 U/L 40-129 N = APHOS) AST (test code = 14 U/L 1-40 N AST) ALT (test code = 17 U/L 1-41 N ALT) BUN/Creatinine 6.4 Ratio (test code = BCRATIO) Anion Gap (test 9 mmol/L 7-16 N code = AGAP) Estimated GFR (test >60 eGFR (es timated code = GFR) mL/min/1.73m2 Glomerular Curry tration Rate) is an est imated value,calculate d from the patient's s chelle creatinine usin g the MDRD equation.I t is NOT the patient 's actual GFR. The eGFR provides a more clinicallyusefu l measure of kidn ey disease than se rum creatinine alone.This calculation tomas es sex and race into account, if the informationis provided. If th e race is not provided , and the patient isAfrican-Ameri can, multiply by 1.2 12. If sex is not prov ided, and thepatient is female, multipl y by 0.742. Results for patients <18 ye ars ofage have not been validated by th e MDRD study and shoul d be interpretedwith caution.eGFR Re sult Interpretation: eGFR > or = 60 is in t he Normal RangeeGF R < 60 may mean kidney diseaseeGFR < 1 5 may mean kidney failureRange s recommended by the National Kidney Foundation,http ://nkd ep.nih.gov XR CHEST ROCAEL [id number] 16:14:19EXAM: Chest x-ray, 2 viewsLOCATION: [id number]: Chest radiograph 05/15/2017 and 04/30/2015INDICATION: I20.9: ANGINA PECTORIS, UNSPECIFIEDDISCUSSION:PA and lateral chest radiographs were submitted for interpretation. Thepatient is slightly rotated on PA radiograph.Median sternotomy changes are present.The lungs are well-inflated.No consolidation, pleural effusion, or pneumothorax is seen. The cardiacsilhouette is enlarged. There is focal prominence of the upper left heart border.No acute osseous abn ormalities are identified. IMPRESSION:1. Enlarged cardiac silhouette.2. Nonspecific focal prominenceof the upper left heart border could bedue to an enlarged left atrial appendage or other mediastinalpathology.Further evaluation with contrast-enhanced chest CT is recommended.3. Otherwise, no acute ca rdiopulmonary abnormalities.XR CHEST 1 [id number] 15:47:01CHEST 1 VIEWCLINICAL INFORMATION: CABGCOMPARISON: May 14, 2017FINDINGS:Since the comparison study, the mediastinal drain and left-sided chesttube have been removed. There is now increasing opacification of theleft hemithorax. The right lung is clear. The cardiac silhouette ismoderately enlarged. A left subclavian vein central line is unchangedin position.IMPRESSION:Increasing opacification of the left hemithorax. The findings mayrepresent any combination of a layering effusion, asymmetric edema,atelectasis, or pneumonia.LOCATION: [id number] Metabolic [id number] 05:23:00 Test Item Value Reference Range Interpretation Comments Sodium (test code = 137 mmol/L 135-145 N NA) Potassium (test 4.5 mmol/L 3.5-5.1 N code = K) Chloride (test code 96 mmol/L 98-105 L = CL) Carbon Dioxide 27 mmol/L 22-29 N (test code = CO2) Glucose (test code 101 mg/dL 70-115 N = GLU) Blood Urea Nitrogen 23 mg/dL 6-20 H (test code = BUN) Creatinine (test 1.4 mg/dL 0.7-1.2 H code = CREAT) Calcium (test code 8.4 mg/dL 8.3-10.5 N = CA) BUN/Creatinine 16.4 Ratio (test code = BCRATIO) Anion Gap (test 14 mmol/L 7-16 N code = AGAP) Estimated GFR (test 57 eGFR (es timated code = GFR) mL/min/1.73m2 Glomerular Curry tration Rate) is an est imated value,calculate d from the patient's s chelle creatinine usin g the MDRD equation.I t is NOT the patient 's actual GFR. The eGFR provides a more clinicallyusefu l measure of kidn ey disease than se rum creatinine alone.This calculation tomas es sex and race into account, if the informationis provided. If th e race is not provided , and the patient isAfrican-Ameri can, multiply by 1.2 12. If sex is not prov ided, and thepatient is female, multipl y by 0.742. Results for patients <18 ye ars ofage have not been validated by th e MDRD study and shoul d be interpretedwith caution.eGFR Re sult Interpretation: eGFR > or = 60 is in t he Normal RangeeGF R < 60 may mean kidney diseaseeGFR < 1 5 may mean kidney failureRange s recommended by the National Kidney Foundation,http ://nkd ep.nih.gov CBC with [id number] 05:06:00 Test Item Value Reference Range Interpretation Comments WBC (test code = WBC) 7.1 K/cumm 4.4-10.5 N RBC (test code = RBC) 3.27 M/cumm 4.10-5.70 L Hemoglobin (test code = HGB) 9.7 gm/dL 13.4-17.4 L Hematocrit (test code = HCT) 28.3 % 38.7-52.0 L MCV (test code = MCV) 86.6 fL 80-100 N MCH (test code = MCH) 29.7 pg 27.0-32.5 N MCHC (test code = MCHC) 34.2 g/dL 32.0-37.5 N RDW (test code = RDW) 14.1 % 11.5-14.5 N Platelet Count (test code = 151 K/cumm 140-440 N PLTCT) MPV (test code = MPV) 7.9 fL Diff Method (test code = DIFFM) Auto Neutrophil (test code = NEUT) 70.9 % 36-70 H Lymphocyte (test code = LYMPH) 20.3 % 12-44 N Monocyte (test code = MONO) 6.8 % 0-11 N Eosinophil (test code = EOS) 1.9 % 0-7 N Basophil (test code = BASO) 0.2 % 0-2 N Neutro Abs (test code = ANEUT) 5.1 K/cumm 1.6-7.4 N Lymph Abs (test code = ALYMPH) 1.4 K/cumm 0.5-4.6 N Attala Abs (test code = AMONO) 0.5 K/cumm 0.0-1.2 N Eos Abs (test code = AEOS) 0.14 K/cumm 0.00-0.74 N Baso Abs (test code = ABASO) 0.0 K/cumm 0.00-0.21 N POC Glucose, [id number] 11:21:00 Test Item Value Reference Range Interpretation Comments POC Glucose (test 109 mg/dL 70-115 N If you con production controller your code = POCGLUC) patient crit ically ill, the [facility] Accu- Chek InformII meters hould not be used for Glu cose determinations. Draw a venous Glucose and send to the Main Lab for Analysis. POC Glucose, [id number] 10:00:00 Test Item Value Reference Range Interpretation Comments POC Glucose (test 103 mg/dL 70-115 N If you con production controller your code = POCGLUC) patient crit ically ill, the [facility] Accu- Chek InformII meters hould not be used for Glu cose determinations. Draw a venous Glucose and send to the Main Lab for Analysis. XR CHEST 1 [id number] 09:32:59EXAM: CHEST ONE VIEWINDICATION: Status post CABGCOMPARISON: May 13, 2017TECHNIQUE: AP view of thechest.FINDINGS: The cardiomediastinal silhouette is enlarged. There is evidence of priorthoracic surgery. The mediastinal drain is in similar position. Theright central venous catheter is unchanged. There is increased densityin the left lung base likely representing atelectasis and small pleuraleffusion. The osseous structures are unremarkable.IMPRESSION: 1. Stable postoperative chest. No pneumothorax.2. Cardiomegaly with left pleural effusion.LOCATION: [id number] Metabolic Panel 2017-05-14 06:53:00 Test Item Value Reference Range Interpretation Comments Sodium (test code = 135 mmol/L 135-145 N NA) Potassium (test 4.4 mmol/L 3.5-5.1 N code = K) Chloride (test code 98 mmol/L 98-105 N = CL) Carbon Dioxide 26 mmol/L 22-29 N (test code = CO2) Glucose (test code 93 mg/dL 70-115 N = GLU) Blood Urea Nitrogen 21 mg/dL 6-20 H (test code = BUN) Creatinine (test 1.2 mg/dL 0.7-1.2 N code = CREAT) Calcium (test code 8.2 mg/dL 8.3-10.5 L = CA) BUN/Creatinine 17.5 Ratio (test code = BCRATIO) Anion Gap (test 11 mmol/L 7-16 N code = AGAP) Estimated GFR (test >60 eGFR (es timated code = GFR) mL/min/1.73m2 Glomerular Curry tration Rate) is an est imated value,calculate d from the patient's s chelle creatinine usin g the MDRD equation.I t is NOT the patient 's actual GFR. The eGFR provides a more clinicallyusefu l measure of kidn ey disease than se rum creatinine alone.This calculation tomas es sex and race into account, if the informationis provided. If th e race is not provided , and the patient isAfrican-Ameri can, multiply by 1.2 12. If sex is not prov ided, and thepatient is female, multipl y by 0.742. Results for patients <18 ye ars ofage have not been validated by th e MDRD study and shoul d be interpretedwith caution.eGFR Re sult Interpretation: eGFR > or = 60 is in t he Normal RangeeGF R < 60 may mean kidney diseaseeGFR < 1 5 may mean kidney failureRange s recommended by the National Kidney Foundation,http ://nkd ep.nih.gov CBC with [id number] 06:49:00 Test Item Value Reference Range Interpretation Comments WBC (test code = WBC) 6.3 K/cumm 4.4-10.5 N RBC (test code = RBC) 2.99 M/cumm 4.10-5.70 L Hemoglobin (test code = HGB) 8.7 gm/dL 13.4-17.4 L Hematocrit (test code = HCT) 26.0 % 38.7-52.0 L MCV (test code = MCV) 87.2 fL 80-100 N MCH (test code = MCH) 29.0 pg 27.0-32.5 N MCHC (test code = MCHC) 33.3 g/dL 32.0-37.5 N RDW (test code = RDW) 14.1 % 11.5-14.5 N Platelet Count (test code = 105 K/cumm 140-440 L PLTCT) MPV (test code = MPV) 8.8 fL Diff Method (test code = DIFFM) Auto Neutrophil (test code = NEUT) 71.5 % 36-70 H Lymphocyte (test code = LYMPH) 19.7 % 12-44 N Monocyte (test code = MONO) 5.6 % 0-11 N Eosinophil (test code = EOS) 2.9 % 0-7 N Basophil (test code = BASO) 0.3 % 0-2 N Neutro Abs (test code = ANEUT) 4.5 K/cumm 1.6-7.4 N Lymph Abs (test code = ALYMPH) 1.2 K/cumm 0.5-4.6 N Attala Abs (test code = AMONO) 0.4 K/cumm 0.0-1.2 N Eos Abs (test code = AEOS) 0.18 K/cumm 0.00-0.74 N Baso Abs (test code = ABASO) 0.0 K/cumm 0.00-0.21 N POC Glucose, [id number] 05:13:00 Test Item Value Reference Range Interpretation Comments POC Glucose (test 92 mg/dL 70-115 N If you con production controller your code = POCGLUC) patient crit ically ill, the [facility] Accu- Chek InformII meters hould not be used for Glu cose determinations. Draw a venous Glucose and send to the Main Lab for Analysis. POC Glucose, [id number] 21:46:00 Test Item Value Reference Range Interpretation Comments POC Glucose (test 129 mg/dL 70-115 H If you con production controller your code = POCGLUC) patient crit ically ill, the [facility] Accu- Chek InformII meters hould not be used for Glu cose determinations. Draw a venous Glucose and send to the Main Lab for Analysis. POC Glucose, [id number] 17:55:00 Test Item Value Reference Range Interpretation Comments POC Glucose (test 100 mg/dL 70-115 N If you con production controller your code = POCGLUC) patient crit ically ill, the [facility] Accu- Chek InformII meters hould not be used for Glu cose determinations. Draw a venous Glucose and send to the Main Lab for Analysis. POC Glucose, [id number] 13:34:00 Test Item Value Reference Range Interpretation Comments POC Glucose (test 103 mg/dL 70-115 N If you con production controller your code = POCGLUC) patient crit ically ill, the [facility] Accu- Chek InformII meters hould not be used for Glu cose determinations. Draw a venous Glucose and send to the Main Lab for Analysis. Antithrombin III [id number] 08:23:00 Test Item Value Reference Range Interpretation Comments Antithrombin 76 % 72-124 N This test was d eveloped and its Antigen (test code performan ce = 974491) characteristics determined by [facility]. It has not been cleared or appr ovedby the Food and Drug Admini stration. Antithrombin III [id number] 08:23:00 Test Item Value Reference Range Interpretation Comments Antithrombin 79 % 72-124 N This test was d eveloped and its Antigen (test code performan ce = 404284) characteristics determined by [facility]. It has not been cleared or appr ovedby the Food and Drug Admini stration. [id number] 07:19:00 Test Item Value Reference Range Interpretation Comments Phosphorus (test code = PO4) 3.8 mg/dL 2.70-4.50 N Magnesium, [id number] 07:08:00 Test Item Value Reference Range Interpretation Comments Magnesium (test code = MG) 2.5 mg/dL 1.7-2.5 N XR CHEST 1 [id number] 06:38:56Exam: Chest portable erectLocation: D 4History: Follow-upComparison: 05/12/2017Findings:No change has occurred in the aeration of the lungs. Postoperativechanges of CABG are present. The mediastinal silhouette is unremarkable.The right subclavian line remains in place.Impression:Stable chest.Basic Metabolic [id number] 04:40:00 Test Item Value Reference Range Interpretation Comments Sodium (test code = 135 mmol/L 135-145 N NA) Potassium (test 4.5 mmol/L 3.5-5.1 N code = K) Chloride (test code 98 mmol/L 98-105 N = CL) Carbon Dioxide 26 mmol/L 22-29 N (test code = CO2) Glucose (test code 111 mg/dL 70-115 N = GLU) Blood Urea Nitrogen 23 mg/dL 6-20 H (test code = BUN) Creatinine (test 1.4 mg/dL 0.7-1.2 H code = CREAT) Calcium (test code 7.9 mg/dL 8.3-10.5 L = CA) BUN/Creatinine 16.4 Ratio (test code = BCRATIO) Anion Gap (test 11 mmol/L 7-16 N code = AGAP) Estimated GFR (test 57 eGFR (es timated code = GFR) mL/min/1.73m2 Glomerular Curry tration Rate) is an est imated value,calculate d from the patient's s chelle creatinine usin g the MDRD equation.I t is NOT the patient 's actual GFR. The eGFR provides a more clinicallyusefu l measure of kidn ey disease than se rum creatinine alone.This calculation tomas es sex and race into account, if the informationis provided. If th e race is not provided , and the patient isAfrican-Ameri can, multiply by 1.2 12. If sex is not prov ided, and thepatient is female, multipl y by 0.742. Results for patients <18 ye ars ofage have not been validated by th e MDRD study and shoul d be interpretedwith caution.eGFR Re sult Interpretation: eGFR > or = 60 is in t he Normal RangeeGF R < 60 may mean kidney diseaseeGFR < 1 5 may mean kidney failureRange s recommended by the National Kidney Foundation,http ://nkd ep.nih.gov CBC with [id number] 04:18:00 Test Item Value Reference Range Interpretation Comments WBC (test code = WBC) 7.7 K/cumm 4.4-10.5 N RBC (test code = RBC) 2.86 M/cumm 4.10-5.70 L Hemoglobin (test code = 8.6 gm/dL 13.4-17.4 L HGB) Hematocrit (test code = 24.7 % 38.7-52.0 L HCT) MCV (test code = MCV) 86.4 fL 80-100 N MCH (test code = MCH) 30.1 pg 27.0-32.5 N MCHC (test code = MCHC) 34.8 g/dL 32.0-37.5 N RDW (test code = RDW) 14.1 % 11.5-14.5 N Platelet Count (test 70 K/cumm 140-440 L code = PLTCT) MPV (test code = MPV) 9.0 fL Diff Method (test code Auto = DIFFM) Neutrophil (test code = 83.4 % 36-70 H NEUT) Lymphocyte (test code = 10.9 % 12-44 L LYMPH) Monocyte (test code = 4.7 % 0-11 N MONO) Eosinophil (test code = 0.9 % 0-7 N EOS) Basophil (test code = 0.1 % 0-2 N BASO) Neutro Abs (test code = 6.4 K/cumm 1.6-7.4 N ANEUT) Lymph Abs (test code = 0.8 K/cumm 0.5-4.6 N ALYMPH) Attala Abs (test code = 0.4 K/cumm 0.0-1.2 N AMONO) Eos Abs (test code = 0.07 K/cumm 0.00-0.74 N AEOS) Baso Abs (test code = 0.0 K/cumm 0.00-0.21 N ABASO) RBC Morphology (test Not Indicated code = RBCMRPH) Platelet Est (test code Decreased Platelet on = PLTEST) Smear POC Glucose, [id number] 03:22:00 Test Item Value Reference Range Interpretation Comments POC Glucose (test 114 mg/dL 70-115 N If you con production controller your code = POCGLUC) patient crit ically ill, the [facility] Accu- Chek InformII meters hould not be used for Glu cose determinations. Draw a venous Glucose and send to the Main Lab for Analysis. POC Glucose, [id number] 00:29:00 Test Item Value Reference Range Interpretation Comments POC Glucose (test 88 mg/dL 70-115 N If you con production controller your code = POCGLUC) patient crit ically ill, the [place] Accu- Chek InformII meters hould not be used for Glu cose determinations. Draw a venous Glucose and send to the Main Lab for Analysis. POC Glucose, [id number] 20:13:00 Test Item Value Reference Range Interpretation Comments POC Glucose (test 104 mg/dL 70-115 N If you con production controller your code = POCGLUC) patient crit ically ill, the [facility] Accu- Chek InformII meters hould not be used for Glu cose determinations. Draw a venous Glucose and send to the Main Lab for Analysis. POC Glucose, [id number] 17:46:00 Test Item Value Reference Range Interpretation Comments POC Glucose (test 101 mg/dL 70-115 N If you con production controller your code = POCGLUC) patient crit ically ill, the [facility] Accu- Chek InformII meters hould not be used for Glu cose determinations. Draw a venous Glucose and send to the Main Lab for Analysis. POC Glucose, [id number] 12:16:00 Test Item Value Reference Range Interpretation Comments POC Glucose (test 95 mg/dL 70-115 N If you con production controller your code = POCGLUC) patient crit ically ill, the [facility] Accu- Chek InformII meters hould not be used for Glu cose determinations. Draw a venous Glucose and send to the Main Lab for Analysis. POC Glucose, [id number] 08:50:00 Test Item Value Reference Range Interpretation Comments POC Glucose (test 101 mg/dL 70-115 N If you con production controller your code = POCGLUC) patient crit ically ill, the [facility] Accu- Chek InformII meters hould not be used for Glu cose determinations. Draw a venous Glucose and send to the Main Lab for Analysis. Magnesium, [id number] 08:02:00 Test Item Value Reference Range Interpretation Comments Magnesium (test code = MG) 2.5 mg/dL 1.7-2.5 N XR CHEST 1 [id number] 05:55:32Exam: Chest portable semierectLocation: D 4History: Status post CABG.Comparison: 05/11/2017Findings:No change has occurred in the aeration of the lungs. The heart size isenlarged. Postoperative changesof CABG are present. The [place]-Ganzcatheter has since been removed. The right subclavian line remainsinplace.Impression:Stable chest.Basic Metabolic Panel 2017-05-12 05:34:00 Test Item Value Reference Range Interpretation Comments Sodium (test code = 134 mmol/L 135-145 L NA) Potassium (test 5.1 mmol/L 3.5-5.1 N code = K) Chloride (test code 99 mmol/L 98-105 N = CL) Carbon Dioxide 24 mmol/L 22-29 N (test code = CO2) Glucose (test code 120 mg/dL 70-115 H = GLU) Blood Urea Nitrogen 16 mg/dL 6-20 N (test code = BUN) Creatinine (test 1.1 mg/dL 0.7-1.2 N code = CREAT) Calcium (test code 8.1 mg/dL 8.3-10.5 L = CA) BUN/Creatinine 14.5 Ratio (test code = BCRATIO) Anion Gap (test 11 mmol/L 7-16 N code = AGAP) Estimated GFR (test >60 eGFR (es timated code = GFR) mL/min/1.73m2 Glomerular Curry tration Rate) is an est imated value,calculate d from the patient's s chelle creatinine usin g the MDRD equation.I t is NOT the patient 's actual GFR. The eGFR provides a more clinicallyusefu l measure of kidn ey disease than se rum creatinine alone.This calculation tomas es sex and race into account, if the informationis provided. If th e race is not provided , and the patient isAfrican-Ameri can, multiply by 1.2 12. If sex is not prov ided, and thepatient is female, multipl y by 0.742. Results for patients <18 ye ars ofage have not been validated by th e MDRD study and shoul d be interpretedwith caution.eGFR Re sult Interpretation: eGFR > or = 60 is in t he Normal RangeeGF R < 60 may mean kidney diseaseeGFR < 1 5 may mean kidney failureRange s recommended by the National Kidney Foundation,http ://nkd ep.nih.gov CBC with [id number] 05:18:00 Test Item Value Reference Range Interpretation Comments WBC (test code = WBC) 13.2 K/cumm 4.4-10.5 H RBC (test code = RBC) 3.40 M/cumm 4.10-5.70 L Hemoglobin (test code = HGB) 10.1 gm/dL 13.4-17.4 L Hematocrit (test code = HCT) 30.0 % 38.7-52.0 L MCV (test code = MCV) 88.2 fL 80-100 N MCH (test code = MCH) 29.7 pg 27.0-32.5 N MCHC (test code = MCHC) 33.7 g/dL 32.0-37.5 N RDW (test code = RDW) 14.7 % 11.5-14.5 H Platelet Count (test code = 98 K/cumm 140-440 L PLTCT) MPV (test code = MPV) 8.3 fL Diff Method (test code = DIFFM) Auto Neutrophil (test code = NEUT) 83.8 % 36-70 H Lymphocyte (test code = LYMPH) 10.3 % 12-44 L Monocyte (test code = MONO) 5.0 % 0-11 N Eosinophil (test code = EOS) 0.9 % 0-7 N Basophil (test code = BASO) 0.1 % 0-2 N Neutro Abs (test code = ANEUT) 11.0 K/cumm 1.6-7.4 H Lymph Abs (test code = ALYMPH) 1.4 K/cumm 0.5-4.6 N Attala Abs (test code = AMONO) 0.7 K/cumm 0.0-1.2 N Eos Abs (test code = AEOS) 0.12 K/cumm 0.00-0.74 N Baso Abs (test code = ABASO) 0.0 K/cumm 0.00-0.21 N RBC, Crossmatch [id number] 03:49:00 Test Item Value Reference Range Interpretation Comments Product 1 Code (test code = E0336 PRODCODE1) Unit 1 ID (test code = [id number] UNITID1) Unit 1 ABO (test code = A UNITABO1) Unit 1 Rh (test code = POS UNITRH1) Unit 1 Interp (test code = Compatible UNITINTERP1) Unit 1 Status (test code = RE UNITSTAT1) Product 2 Code (test code = E0336 PRODCODE2) Unit 2 ID (test code = [id number] UNITID2) Unit 2 ABO (test code = A UNITABO2) Unit 2 Rh (test code = POS UNITRH2) Unit 2 Interp (test code = Compatible UNITINTERP2) Unit 2 Status (test code = RE UNITSTAT2) Product 3 Code (test code = E0336 PRODCODE3) Unit 3 ID (test code = [id number] UNITID3) Unit 3 ABO (test code = A UNITABO3) Unit 3 Rh (test code = POS UNITRH3) Unit 3 Interp (test code = Compatible UNITINTERP3) Unit 3 Status (test code = RE UNITSTAT3) Product 4 Code (test code = E4532 PRODCODE4) Unit 4 ID (test code = [id number] UNITID4) Unit 4 ABO (test code = A UNITABO4) Unit 4 Rh (test code = POS UNITRH4) Unit 4 Interp (test code = Compatible UNITINTERP4) Unit 4 Status (test code = RE UNITSTAT4) POC Glucose, [id number] 01:53:00 Test Item Value Reference Range Interpretation Comments POC Glucose (test 93 mg/dL 70-115 N If you con production controller your code = POCGLUC) patient crit ically ill, the [facility] Accu- Chek InformII meters hould not be used for Glu cose determinations. Draw a venous Glucose and send to the Main Lab for Analysis. POC Glucose, [id number] 22:08:00 Test Item Value Reference Range Interpretation Comments POC Glucose (test 101 mg/dL 70-115 N If you con production controller your code = POCGLUC) patient crit ically ill, the [facility] Accu- Chek InformII meters hould not be used for Glu cose determinations. Draw a venous Glucose and send to the Main Lab for Analysis. POC Glucose, [id number] 17:41:00 Test Item Value Reference Range Interpretation Comments POC Glucose (test 123 mg/dL 70-115 H If you con production controller your code = POCGLUC) patient crit ically ill, the [facility] Accu- Chek InformII meters hould not be used for Glu cose determinations. Draw a venous Glucose and send to the Main Lab for Analysis. POC Glucose, [id number] 13:26:00 Test Item Value Reference Range Interpretation Comments POC Glucose (test 94 mg/dL 70-115 N If you con production controller your code = POCGLUC) patient crit ically ill, the [facility] Accu- Chek InformII meters hould not be used for Glu cose determinations. Draw a venous Glucose and send to the Main Lab for Analysis. [id number] 12:45:00 Test Item Value Reference Range Interpretation Comments Phosphorus (test code = PO4) 4.3 mg/dL 2.70-4.50 N POC Glucose, [id number] 09:52:00 Test Item Value Reference Range Interpretation Comments POC Glucose (test 134 mg/dL 70-115 H If you con production controller your code = POCGLUC) patient crit ically ill, the [facility] Accu- Chek InformII meters hould not be used for Glu cose determinations. Draw a venous Glucose and send to the Main Lab for Analysis. POC Glucose, [id number] 07:54:00 Test Item Value Reference Range Interpretation Comments POC Glucose (test 128 mg/dL 70-115 H If you con production controller your code = POCGLUC) patient crit ically ill, the [facility] Accu- Chek InformII meters hould not be used for Glu cose determinations. Draw a venous Glucose and send to the Main Lab for Analysis. Blood Gas+Lytes+Glu+Ca+Hgb+Hct+[id number] 06:03:00 Test Item Value Reference Range Interpretation Comments pH, Blood Gas (test code = 7.428 pH Units 7.35-7.45 N BGPH) pCO2 (test code = PCO2) 36.4 mm Hg 35-45 N pO2 (test code = PO2) 75.6 mm Hg 80-100 L Bicarbonate (test code = 24.0 mmol/L 22.0-26.0 N HCO3) Base Excess (test code = BE) -0.1 mmol/L O2 Saturation (test code = 96.9 % 80.0-100.0 N O2SAT) Sodium, Blood Gas (test code 140 mmol/L 135-145 N = BGNA) Potassium, Blood Gas (test 3.9 mmol/L 3.5-4.5 N code = BGK) Chloride, Blood Gas (test 107 mmol/L 98-105 H code = BGCL) Calcium, Ionized, Blood Gas 1.07 mmol/L 1.00-1.50 N (test code = BGCAI) Glucose, Blood Gas (test 117 mg/dL 75-115 H code = BGGLU) tHB (test code = RTHB) 11.1 gm/dL 12.2-17.4 L Hematocrit, Blood Gas (test 34.0 % 34.0-52.0 N code = BGHCT) O2Hb (test code = RO2HB) 95 80-100 N Carboxyhemoglobin (test code 1.4 % 0.0-20.0 N = CARHGB) FLOW (LPM) (test code = 3 L/min FLOW) Patient Temperature (test 37.0 Degrees code = PTTEMP) Celcius Comment (test code = qns rblv crit COMMENT) [id number] trtmg Puncture Site (test code = Art line PUNSITE) Drawing Tech ID (test code = mg DRAWTECH) Lactic Acid, Blood Gas (test 1.4 mmol/L code = BGLA) iPAP (test code = IPAP) 0 cmH2O Respiratory Rate (test code 0 = RESP RATE) XR CHEST 1 [id number] 05:38:31Exam: Chest portable semierectLocation: D 4History: Status post CABGComparison: 05/10/2017Findings:No changes occurred in the aeration of the lungs. Postoperative changesof CABG are present. The mediast inal silhouette is unremarkable. Theendotracheal tube has since been removed. The right subclavian line,[place]-Fernando catheter and chest tubes remain in place.Impression:Stable chest.Magnesium, [id number] 05:13:00 Test Item Value Reference Range Interpretation Comments Magnesium (test code = MG) 2.0 mg/dL 1.7-2.5 N Basic Metabolic [id number] 05:13:00 Test Item Value Reference Range Interpretation Comments Sodium (test code = 139 mmol/L 135-145 N NA) Potassium (test 4.1 mmol/L 3.5-5.1 N code = K) Chloride (test code 104 mmol/L 98-105 N = CL) Carbon Dioxide 23 mmol/L 22-29 N (test code = CO2) Glucose (test code 147 mg/dL 70-115 H = GLU) Blood Urea Nitrogen 16 mg/dL 6-20 N (test code = BUN) Creatinine (test 1.3 mg/dL 0.7-1.2 H code = CREAT) Calcium (test code 7.6 mg/dL 8.3-10.5 L = CA) BUN/Creatinine 12.3 Ratio (test code = BCRATIO) Anion Gap (test 12 mmol/L 7-16 N code = AGAP) Estimated GFR (test >60 eGFR (es timated code = GFR) mL/min/1.73m2 Glomerular Curry tration Rate) is an est imated value,calculate d from the patient's s chelle creatinine usin g the MDRD equation.I t is NOT the patient 's actual GFR. The eGFR provides a more clinicallyusefu l measure of kidn ey disease than se rum creatinine alone.This calculation tomas es sex and race into account, if the informationis provided. If th e race is not provided , and the patient isAfrican-Ameri can, multiply by 1.2 12. If sex is not prov ided, and thepatient is female, multipl y by 0.742. Results for patients <18 ye ars ofage have not been validated by th e MDRD study and joy d be interpretedwith caution.eGFR Re sult Interpretation: eGFR > or = 60 is in t he Normal RangeeGF R < 60 may mean kidney diseaseeGFR < 1 5 may mean kidney failureRange s recommended by the National Kidney Foundation,http ://nkd ep.nih.gov CBC with [id number] 04:55:00 Test Item Value Reference Range Interpretation Comments WBC (test code = WBC) 14.0 K/cumm 4.4-10.5 H RBC (test code = RBC) 3.74 M/cumm 4.10-5.70 L Hemoglobin (test code = HGB) 11.0 gm/dL 13.4-17.4 L Hematocrit (test code = HCT) 32.6 % 38.7-52.0 L MCV (test code = MCV) 87.2 fL 80-100 N MCH (test code = MCH) 29.4 pg 27.0-32.5 N MCHC (test code = MCHC) 33.8 g/dL 32.0-37.5 N RDW (test code = RDW) 14.3 % 11.5-14.5 N Platelet Count (test code = 127 K/cumm 140-440 L PLTCT) MPV (test code = MPV) 8.0 fL Diff Method (test code = DIFFM) Auto Neutrophil (test code = NEUT) 86.1 % 36-70 H Lymphocyte (test code = LYMPH) 6.3 % 12-44 L Monocyte (test code = MONO) 7.2 % 0-11 N Eosinophil (test code = EOS) 0.3 % 0-7 N Basophil (test code = BASO) 0.0 % 0-2 N Neutro Abs (test code = ANEUT) 12.1 K/cumm 1.6-7.4 H Lymph Abs (test code = ALYMPH) 0.9 K/cumm 0.5-4.6 N Att[place] Abs (test code = AMONO) 1.0 K/cumm 0.0-1.2 N Eos Abs (test code = AEOS) 0.05 K/cumm 0.00-0.74 N Baso Abs (test code = ABASO) 0.0 K/cumm 0.00-0.21 N POC Glucose, [id number] 03:59:00 Test Item Value Reference Range Interpretation Comments POC Glucose (test 160 mg/dL 70-115 H If you con production controller your code = POCGLUC) patient crit ically ill, the [facility] Accu- Chek InformII meters hould not be used for Glu cose determinations. Draw a venous Glucose and send to the Main Lab for Analysis. POC Glucose, [id number] 02:59:00 Test Item Value Reference Range Interpretation Comments POC Glucose (test 173 mg/dL 70-115 H If you con production controller your code = POCGLUC) patient crit ically ill, the [facility] Accu- Chek InformII meters hould not be used for Glu cose determinations. Draw a venous Glucose and send to the Main Lab for Analysis. Blood Gas+Lytes+Glu+Ca+Hgb+Hct+[id number] 02:10:00 Test Item Value Reference Range Interpretation Comments pH, Blood Gas (test code = 7.316 pH Units 7.35-7.45 L BGPH) pH, Temp Corrected (test 7.310 pH Units 7.35-7.45 L code = BGPHC) pCO2 (test code = PCO2) 40.9 mm Hg 35-45 N pCO2, Temp Corrected (test 41.6 mm Hg 35-45 N code = PCO2C) pO2 (test code = PO2) 117.0 mm Hg 80-100 HH Bicarbonate (test code = 20.8 mmol/L 22.0-26.0 LL HCO3) Base Excess (test code = BE) -5.0 mmol/L O2 Saturation (test code = 99.1 % 80.0-100.0 N O2SAT) Sodium, Blood Gas (test code 139 mmol/L 135-145 N = BGNA) Potassium, Blood Gas (test 4.3 mmol/L 3.5-4.5 N code = BGK) Chloride, Blood Gas (test 108 mmol/L 98-105 H code = BGCL) Calcium, Ionized, Blood Gas 1.10 mmol/L 1.00-1.50 N (test code = BGCAI) Glucose, Blood Gas (test 208 mg/dL 75-115 H code = BGGLU) tHB (test code = RTHB) 11.7 gm/dL 12.2-17.4 L Hematocrit, Blood Gas (test 35.8 % 34.0-52.0 N code = BGHCT) O2Hb (test code = RO2HB) 97 80-100 N Carboxyhemoglobin (test code 1.1 % 0.0-20.0 N = CARHGB) FIO2 % (test code = FIO2) 40 % Patient Temperature (test 37.4 Degrees code = PTTEMP) Celcius Comment (test code = spont,qns rblv COMMENT) crit [id number] bertrtmg Puncture Site (test code = Art line PUNSITE) Drawing Tech ID (test code = mg DRAWTECH) Lactic Acid, Blood Gas (test 5.2 mmol/L code = BGLA) iPAP (test code = IPAP) 0 cmH2O Peep (test code = RPEEP) 5 Respiratory Rate (test code 0 = RESP RATE) POC Glucose, [id number] 01:48:00 Test Item Value Reference Range Interpretation Comments POC Glucose (test 197 mg/dL 70-115 H If you con production controller your code = POCGLUC) patient crit ically ill, the [facility] Accu- Chek InformII meters hould not be used for Glu cose determinations. Draw a venous Glucose and send to the Main Lab for Analysis. POC Glucose, [id number] 23:51:00 Test Item Value Reference Range Interpretation Comments POC Glucose (test 200 mg/dL 70-115 H If you con production controller your code = POCGLUC) patient crit ically ill, the [facility] Accu- Chek InformII meters hould not be used for Glu cose determinations. Draw a venous Glucose and send to the Main Lab for Analysis. POC Glucose, [id number] 22:54:00 Test Item Value Reference Range Interpretation Comments POC Glucose (test 204 mg/dL 70-115 H If you con production controller your code = POCGLUC) patient crit ically ill, the [facility] Accu- Chek InformII meters hould not be used for Glu cose determinations. Draw a venous Glucose and send to the Main Lab for Analysis. POC Glucose, [id number] 22:07:00 Test Item Value Reference Range Interpretation Comments POC Glucose (test 218 mg/dL 70-115 H If you con production controller your code = POCGLUC) patient crit ically ill, the [facility] Accu- Chek InformII meters hould not be used for Glu cose determinations. Draw a venous Glucose and send to the Main Lab for Analysis. CBC with [id number] 21:53:00 Test Item Value Reference Range Interpretation Comments WBC (test code = WBC) 22.7 K/cumm 4.4-10.5 H RBC (test code = RBC) 4.11 M/cumm 4.10-5.70 N Hemoglobin (test code 12.3 gm/dL 13.4-17.4 L = HGB) Hematocrit (test code 36.4 % 38.7-52.0 L = HCT) MCV (test code = MCV) 88.5 fL 80-100 N MCH (test code = MCH) 30.0 pg 27.0-32.5 N MCHC (test code = 34.0 g/dL 32.0-37.5 N MCHC) RDW (test code = RDW) 14.3 % 11.5-14.5 N Platelet Count (test 171 K/cumm 140-440 N code = PLTCT) MPV (test code = MPV) 7.9 fL Diff Method (test Manual code = DIFFM) Neutrophil (test code 81.0 % 36-70 H = NEUT) Bands (test code = 12.0 % 0-6 H BAND) Lymphocyte (test code 3.0 % 12-44 L = LYMPH) Monocyte (test code = 4.0 % 0-11 N MONO) Neutro Abs (test code 21.1 K/cumm 1.6-7.4 H = ANEUT) Lymph Abs (test code 0.7 K/cumm 0.5-4.6 N = ALYMPH) [place] Abs (test code = 0.9 K/cumm 0.0-1.2 N AMONO) RBC Morphology (test Slight Anisocytosis ; code = RBCMRPH) Slight Polychromasia ; Mod Ovalocytes WBC Morphology (test Slight Toxic Granulation code = WBCMRPH) ; Dohle Bodies Present Platelet Est (test Adequate Platelets on code = PLTEST) Smear Prothrombin [id number] 21:35:00 Test Item Value Reference Range Interpretation Comments PT (test code = PT) 12.30 seconds 9.78-13.35 N INR (test code = INR) 1.08 Ratio 0.6-1.2 N Partial Thromboplastin [id number] 21:35:00 Test Item Value Reference Range Interpretation Comments aPTT (test code = PTT) 25.80 seconds 24.39-37.25 N Basic Metabolic [id number] 21:31:00 Test Item Value Reference Range Interpretation Comments Sodium (test code = 138 mmol/L 135-145 N NA) Potassium (test 4.1 mmol/L 3.5-5.1 N code = K) Chloride (test code 101 mmol/L 98-105 N = CL) Carbon Dioxide 20 mmol/L 22-29 L (test code = CO2) Glucose (test code 224 mg/dL 70-115 H = GLU) Blood Urea Nitrogen 18 mg/dL 6-20 N (test code = BUN) Creatinine (test 1.6 mg/dL 0.7-1.2 H code = CREAT) Calcium (test code 7.8 mg/dL 8.3-10.5 L = CA) BUN/Creatinine 11.3 Ratio (test code = BCRATIO) Anion Gap (test 17 mmol/L 7-16 H code = AGAP) Estimated GFR (test 49 eGFR (es timated code = GFR) mL/min/1.73m2 Glomerular Curry tration Rate) is an est imated value,calculate d from the patient's s chelle creatinine usin g the MDRD equation.I t is NOT the patient 's actual GFR. The eGFR provides a more clinicallyusefu l measure of kidn ey disease than se rum creatinine alone.This calculation tomas es sex and race into account, if the informationis provided. If th e race is not provided , and the patient isAfrican-Ameri can, multiply by 1.2 12. If sex is not prov ided, and thepatient is female, multipl y by 0.742. Results for patients <18 ye ars ofage have not been validated by th e MDRD study and shoul d be interpretedwith caution.eGFR Re sult Interpretation: eGFR > or = 60 is in t he Normal RangeeGF R < 60 may mean kidney diseaseeGFR < 1 5 may mean kidney failureRange s recommended by the National Kidney Foundation,http ://nkd ep.nih.gov [id number] 21:31:00 Test Item Value Reference Range Interpretation Comments Phosphorus (test code = PO4) 1.3 mg/dL 2.70-4.50 L Magnesium, [id number] 21:27:00 Test Item Value Reference Range Interpretation Comments Magnesium (test code = MG) 2.2 mg/dL 1.7-2.5 N [id number] 21:26:00 Test Item Value Reference Range Interpretation Comments Phosphorus (test code = PO4) 1.3 mg/dL 2.70-4.50 L POC Glucose, [id number] 20:23:00 Test Item Value Reference Range Interpretation Comments POC Glucose (test 213 mg/dL 70-115 H If you con production controller your code = POCGLUC) patient crit ically ill, the [facility] Accu- Chek InformII meters hould not be used for Glu cose determinations. Draw a venous Glucose and send to the Main Lab for Analysis. Blood Gas+Lytes+Glu+Ca+Hgb+Hct+[id number] 19:18:00 Test Item Value Reference Range Interpretation Comments pH, Blood Gas (test code = 7.286 pH Units 7.35-7.45 L BGPH) pH, Temp Corrected (test 7.258 pH Units 7.35-7.45 L code = BGPHC) pCO2 (test code = PCO2) 39.7 mm Hg 35-45 N pCO2, Temp Corrected (test 43.5 mm Hg 35-45 N code = PCO2C) pO2 (test code = PO2) 78.5 mm Hg 80-100 L Bicarbonate (test code = 18.9 mmol/L 22.0-26.0 LL HCO3) Base Excess (test code = -7.2 mmol/L BE) O2 Saturation (test code = 95.2 % 80.0-100.0 N O2SAT) Sodium, Blood Gas (test 138 mmol/L 135-145 N code = BGNA) Potassium, Blood Gas (test 3.9 mmol/L 3.5-4.5 N code = BGK) Chloride, Blood Gas (test 106 mmol/L 98-105 H code = BGCL) Calcium, Ionized, Blood Gas 1.10 mmol/L 1.00-1.50 N (test code = BGCAI) Glucose, Blood Gas (test 215 mg/dL 75-115 H code = BGGLU) tHB (test code = RTHB) 12.7 gm/dL 12.2-17.4 N Hematocrit, Blood Gas (test 38.8 % 34.0-52.0 N code = BGHCT) O2Hb (test code = RO2HB) 93 80-100 N Carboxyhemoglobin (test 1.8 % 0.0-20.0 N code = CARHGB) FIO2 % (test code = FIO2) 40 % Patient Temperature (test 39.1 Degrees code = PTTEMP) Celcius Comment (test code = spontver rblv crit COMMENT) [id number] [facility] [place] [place] (test code = Art line PUNSITE) Drawing Tech ID (test code mg = DRAWTECH) Lactic Acid, Blood Gas 9.0 mmol/L (test code = BGLA) iPAP (test code = IPAP) 0 cmH2O Peep (test code = RPEEP) 5 Respiratory Rate (test code 0 = RESP RATE) POC Glucose, [id number] 19:12:00 Test Item Value Reference Range Interpretation Comments POC Glucose (test 198 mg/dL 70-115 H If you con production controller your code = POCGLUC) patient crit ically ill, the [facility] Accu- Chek InformII meters hould not be used for Glu cose determinations. Draw a venous Glucose and send to the Main Lab for Analysis. POC Glucose, [id number] 18:41:00 Test Item Value Reference Range Interpretation Comments POC Glucose (test 189 mg/dL 70-115 H If you con production controller your code = POCGLUC) patient crit ically ill, the [facility] Accu- Chek InformII meters hould not be used for Glu cose determinations. Draw a venous Glucose and send to the Main Lab for Analysis. POC Glucose, [id number] 17:46:00 Test Item Value Reference Range Interpretation Comments POC Glucose (test 172 mg/dL 70-115 H If you con production controller your code = POCGLUC) patient crit ically ill, the [facility] Accu- Chek InformII meters hould not be used for Glu cose determinations. Draw a venous Glucose and send to the Main Lab for Analysis. POC Glucose, [id number] 16:57:00 Test Item Value Reference Range Interpretation Comments POC Glucose (test 185 mg/dL 70-115 H If you con production controller your code = POCGLUC) patient crit ically ill, the [facility] Accu- Chek InformII meters hould not be used for Glu cose determinations. Draw a venous Glucose and send to the Main Lab for Analysis. CBC with [id number] 16:47:00 Test Item Value Reference Range Interpretation Comments WBC (test code = 28.2 K/cumm 4.4-10.5 H READ BACK L AB WBC) VALUESVERIFIED BY REPEAT TESTINGc alled to Elham martin @ 1603MXTpost palomo danay RBC (test code = 4.57 M/cumm 4.10-5.70 N RBC) Hemoglobin (test 13.3 gm/dL 13.4-17.4 L code = HGB) Hematocrit (test 40.4 % 38.7-52.0 N code = HCT) MCV (test code = 88.4 fL 80-100 N MCV) MCH (test code = 29.1 pg 27.0-32.5 N MCH) MCHC (test code 32.9 g/dL 32.0-37.5 N = MCHC) RDW (test code = 14.3 % 11.5-14.5 N RDW) Platelet Count 165 K/cumm 140-440 N (test code = PLTCT) MPV (test code = 7.7 fL MPV) Diff Method Manual (test code = DIFFM) Neutrophil (test 74.0 % 36-70 H code = NEUT) Bands (test code 10.0 % 0-6 H = BAND) Lymphocyte (test 11.0 % 12-44 L code = LYMPH) Monocyte (test 5.0 % 0-11 N code = MONO) Neutro Abs (test 23.7 K/cumm 1.6-7.4 H code = ANEUT) Lymph Abs (test 3.1 K/cumm 0.5-4.6 N code = ALYMPH) [place] Abs (test 1.4 K/cumm 0.0-1.2 H code = AMONO) RBC Morphology Slight Anisocytosis (test code = ; Slight RBCMRPH) Polychromasia Platelet Est Adequate Platelets (test code = on Smear PLTEST) Basic Metabolic [id number] 16:23:00 Test Item Value Reference Range Interpretation Comments Sodium (test code = 140 mmol/L 135-145 N NA) Potassium (test 4.0 mmol/L 3.5-5.1 N HEMOLYZED code = K) Chloride (test code 101 mmol/L 98-105 N = CL) Carbon Dioxide 21 mmol/L 22-29 L (test code = CO2) Glucose (test code 165 mg/dL 70-115 H = GLU) Blood Urea Nitrogen 17 mg/dL 6-20 N (test code = BUN) Creatinine (test 1.5 mg/dL 0.7-1.2 H code = CREAT) Calcium (test code 7.8 mg/dL 8.3-10.5 L = CA) BUN/Creatinine 11.3 Ratio (test code = BCRATIO) Anion Gap (test 18 mmol/L 7-16 H code = AGAP) Estimated GFR (test 53 eGFR (es timated code = GFR) mL/min/1.73m2 Glomerular Curry tration Rate) is an est imated value,calculate d from the patient's s chelle creatinine usin g the MDRD equation.I t is NOT the patient 's actual GFR. The eGFR provides a more clinicallyusefu l measure of kidn ey disease than se rum creatinine alone.This calculation tomas es sex and race into account, if the informationis provided. If th e race is not provided , and the patient isAfrican-Ameri can, multiply by 1.2 12. If sex is not prov ided, and thepatient is female, multipl y by 0.742. Results for patients <18 ye ars ofage have not been validated by th e MDRD study and joy d be interpretedwith caution.eGFR Re sult Interpretation: eGFR > or = 60 is in t he Normal RangeeGF R < 60 may mean kidney diseaseeGFR < 1 5 may mean kidney failureRange s recommended by the National Kidney Foundation,http ://nkd ep.nih.gov [id number] 16:23:00 Test Item Value Reference Range Interpretation Comments Phosphorus (test code = PO4) 5.4 mg/dL 2.70-4.50 H Magnesium, [id number] 16:23:00 Test Item Value Reference Range Interpretation Comments Magnesium (test code = MG) 2.5 mg/dL 1.7-2.5 N Fibrinogen [id number] 16:14:00 Test Item Value Reference Range Interpretation Comments Fibrinogen (test code = FIB) 244.00 mg/dL 188.56-473.80 N Partial Thromboplastin [id number] 16:14:00 Test Item Value Reference Range Interpretation Comments aPTT (test code = PTT) 31.00 seconds 24.39-37.25 N Prothrombin [id number] 16:14:00 Test Item Value Reference Range Interpretation Comments PT (test code = PT) 14.50 seconds 9.78-13.35 H INR (test code = INR) 1.27 Ratio 0.6-1.2 H XR CHEST 1 [id number] 16:06:43XR CHEST 1 VIEWCLINICAL INFORMATION: s/p cabg COMPARISONS: Chest x-ray dated April 30, 2017FINDINGS:The tip of the endotracheal tube terminates 5.6 cm from the saúl. Aright internal jugular vein approach [place]-Fernando catheter terminates inthe right pulmonary artery. A mediastinal drain and left-sided chesttube are noted. Median sternotomy wires are present.The lung volumes are decreased. Subsegmental atelectasis is noted inthe lung bases. The cardiac silhouette is mildly enlarged. There ismild thi tral pulmonary vascular congestion.IMPRESSION:1. Postoperative lines and tubes as described.2. Bibasilar atelectasis.Location: [id number] Gas+Lytes+Glu+Ca+Hgb+Hct+[id number] 15:46:00 Test Item Value Reference Range Interpretation Comments pH, Blood Gas (test code 7.178 pH Units 7.350-7.450 LL = BGPH) pCO2 (test code = PCO2) 55.4 mm Hg 15-125 N pO2 (test code = PO2) 50.4 mm Hg 30-420 N PO2 is not a reliable measurement of the patient's oxygenation. Reference range not established for this test. Bicarbonate (test code = 20.6 mmol/L 22.0-26.0 LL HCO3) Base Excess (test code = -8.2 mmol/L BE) O2 Saturation (test code 75.7 % 20.0-100.0 N % O 2SAT is not a = O2SAT) reliable measurement of the patient's oxygenation.Ref er ence range not established for this test. Sodium, Blood Gas (test 141 mmol/L 135-145 N code = BGNA) Potassium, Blood Gas 3.4 mmol/L 3.5-4.5 L (test code = BGK) Chloride, Blood Gas 109 98-105 H (test code = BGCL) Calcium, Ionized, Blood 1.01 mmol/L 1.00-1.50 N Gas (test code = BGCAI) Glucose, Blood Gas (test 152 mg/dL 75-115 H code = BGGLU) tHB (test code = RTHB) 12.4 gm/dL 7.0-25.0 N Hematocrit, Blood Gas 38.0 % 34.0-52.0 N (test code = BGHCT) O2Hb (test code = RO2HB) 74 80-100 L Carboxyhemoglobin (test 1.7 % 0.0-20.0 N code = CARHGB) Methemoglobin (test code 1.2 % 0.0-20.0 N = METHGB) FIO2 % (test code = 40 % FIO2) Patient Temperature 37.0 Degrees (test code = PTTEMP) Celcius Comment (test code = qns rblv crit COMMENT) vals to @ 8610.dn Puncture Site (test code Other = PUNSITE) Drawing Tech ID (test dnguyen code = DRAWTECH) Lactic Acid, Blood Gas 5.5 mmol/L (test code = BGLA) iPAP (test code = IPAP) 0 cmH2O Peep (test code = RPEEP) 5 Respiratory Rate (test 12 code = RESP RATE) Tidal Volume (test code 0.600 Liters = TIDALVOL) POC Glucose, [id number] 15:34:00 Test Item Value Reference Range Interpretation Comments POC Glucose (test 159 mg/dL 70-115 H If you con production controller your code = POCGLUC) patient crit ically ill, the [facility] Accu- Chek InformII meters hould not be used for Glu cose determinations. Draw a venous Glucose and send to the Main Lab for Analysis. Blood Gas+Lytes+Glu+Ca+Hgb+Hct+[id number] 15:27:00 Test Item Value Reference Range Interpretation Comments pH, Blood Gas (test code = 7.239 pH Units 7.35-7.45 L BGPH) pCO2 (test code = PCO2) 50.9 mm Hg 35-45 H pO2 (test code = PO2) 84.7 mm Hg 80-100 N Bicarbonate (test code = 21.7 mmol/L 22.0-26.0 LL HCO3) Base Excess (test code = BE) -6.0 mmol/L O2 Saturation (test code = 95.3 % 80.0-100.0 N O2SAT) Sodium, Blood Gas (test code 139 mmol/L 135-145 N = BGNA) Potassium, Blood Gas (test 3.7 mmol/L 3.5-4.5 N code = BGK) Chloride, Blood Gas (test 105 mmol/L 98-105 N code = BGCL) Calcium, Ionized, Blood Gas 1.08 mmol/L 1.00-1.50 N (test code = BGCAI) Glucose, Blood Gas (test 164 mg/dL 75-115 H code = BGGLU) tHB (test code = RTHB) 13.3 gm/dL 12.2-17.4 N Hematocrit, Blood Gas (test 40.6 % 34.0-52.0 N code = BGHCT) O2Hb (test code = RO2HB) 93 80-100 N Carboxyhemoglobin (test code 1.6 % 0.0-20.0 N = CARHGB) Methemoglobin (test code = 1.1 % 0.0-20.0 N METHGB) FIO2 % (test code = FIO2) 40 % Patient Temperature (test 37.0 Degrees code = PTTEMP) Celcius Comment (test code = qns rblv crit COMMENT) vals to @ 1845.dn Puncture Site (test code = Art line PUNSITE) Drawing Tech ID (test code = dnguyen DRAWTECH) Lactic Acid, Blood Gas (test 6.1 mmol/L code = BGLA) iPAP (test code = IPAP) 0 cmH2O Peep (test code = RPEEP) 5 Respiratory Rate (test code 12 = RESP RATE) Tidal Volume (test code = 0.600 Liters TIDALVOL) Blood Gas+Lytes+Glu+Ca+Hgb+Hct+[id number] 14:24:00 Test Item Value Reference Range Interpretation Comments pH, Blood Gas (test code = 7.263 pH Units 7.35-7.45 L BGPH) pCO2 (test code = PCO2) 43.7 mm Hg 35-45 N pO2 (test code = PO2) 433.0 mm Hg 80-100 HH Bicarbonate (test code = 19.7 mmol/L 22.0-26.0 LL HCO3) Base Excess (test code = BE) -7.0 mmol/L O2 Saturation (test code = 99.8 % 80.0-100.0 N O2SAT) Sodium, Blood Gas (test code 135 mmol/L 135-145 N = BGNA) Potassium, Blood Gas (test 4.3 mmol/L 3.5-4.5 N code = BGK) Chloride, Blood Gas (test 106 mmol/L 98-105 H code = BGCL) Calcium, Ionized, Blood Gas 1.07 mmol/L 1.00-1.50 N (test code = BGCAI) Glucose, Blood Gas (test 159 mg/dL 75-115 H code = BGGLU) tHB (test code = RTHB) 12.0 gm/dL 12.2-17.4 L Hematocrit, Blood Gas (test 36.7 % 34.0-52.0 N code = BGHCT) O2Hb (test code = RO2HB) 97 80-100 N Carboxyhemoglobin (test code 0.8 % 0.0-20.0 N = CARHGB) Methemoglobin (test code = 1.9 % 0.0-20.0 N METHGB) FIO2 % (test code = FIO2) 100 % Patient Temperature (test 37.0 Degrees code = PTTEMP) Celcius Puncture Site (test code = Art line PUNSITE) Drawing Tech ID (test code = DRAWTECH) Lactic Acid, Blood Gas (test 4.2 mmol/L code = BGLA) Respiratory Rate (test code 0 = RESP RATE) Blood Gas+Lytes+Glu+Ca+Hgb+Hct+[id number] 13:24:00 Test Item Value Reference Range Interpretation Comments pH, Blood Gas (test code = 7.339 pH Units 7.35-7.45 L BGPH) pCO2 (test code = PCO2) 42.0 mm Hg 35-45 N pO2 (test code = PO2) 223.0 mm Hg 80-100 HH Bicarbonate (test code = 22.6 mmol/L 22.0-26.0 N HCO3) Base Excess (test code = BE) -3.1 mmol/L O2 Saturation (test code = 100.0 % 80.0-100.0 N O2SAT) Sodium, Blood Gas (test code 134 mmol/L 135-145 L = BGNA) Potassium, Blood Gas (test 4.8 mmol/L 3.5-4.5 H code = BGK) Chloride, Blood Gas (test 105 mmol/L 98-105 N code = BGCL) Calcium, Ionized, Blood Gas 1.18 mmol/L 1.00-1.50 N (test code = BGCAI) Glucose, Blood Gas (test 150 mg/dL 75-115 H code = BGGLU) tHB (test code = RTHB) 10.2 gm/dL 12.2-17.4 L Hematocrit, Blood Gas (test 31.4 % 34.0-52.0 L code = BGHCT) O2Hb (test code = RO2HB) 97 80-100 N Carboxyhemoglobin (test code 1.7 % 0.0-20.0 N = CARHGB) Methemoglobin (test code = 1.0 % 0.0-20.0 N METHGB) FIO2 % (test code = FIO2) 100 % Patient Temperature (test 37.0 Degrees code = PTTEMP) Celcius Puncture Site (test code = Art line PUNSITE) Drawing Tech ID (test code = DRAWTECH) Lactic Acid, Blood Gas (test 2.4 mmol/L code = BGLA) iPAP (test code = IPAP) 0 cmH2O Respiratory Rate (test code 0 = RESP RATE) Blood Gas+Lytes+Glu+Ca+Hgb+Hct+[id number] 12:44:00 Test Item Value Reference Range Interpretation Comments pH, Blood Gas (test code = 7.392 pH Units 7.35-7.45 N BGPH) pCO2 (test code = PCO2) 39.1 mm Hg 35-45 N pO2 (test code = PO2) 249.0 mm Hg 80-100 HH Bicarbonate (test code = 23.7 mmol/L 22.0-26.0 N HCO3) Base Excess (test code = BE) -1.1 mmol/L O2 Saturation (test code = 99.9 % 80.0-100.0 N O2SAT) Sodium, Blood Gas (test code 134 mmol/L 135-145 L = BGNA) Potassium, Blood Gas (test 4.6 mmol/L 3.5-4.5 H code = BGK) Chloride, Blood Gas (test 103 mmol/L 98-105 N code = BGCL) Calcium, Ionized, Blood Gas 0.97 mmol/L 1.00-1.50 LL (test code = BGCAI) Glucose, Blood Gas (test 130 mg/dL 75-115 H code = BGGLU) tHB (test code = RTHB) 10.2 gm/dL 12.2-17.4 L Hematocrit, Blood Gas (test 31.3 % 34.0-52.0 L code = BGHCT) O2Hb (test code = RO2HB) 97 80-100 N Carboxyhemoglobin (test code 0.9 % 0.0-20.0 N = CARHGB) Methemoglobin (test code = 1.8 % 0.0-20.0 N METHGB) FIO2 % (test code = FIO2) 100 % Patient Temperature (test 37.0 Degrees code = PTTEMP) Celcius Puncture Site (test code = Art line PUNSITE) Drawing Tech ID (test code = dr.lynley RODRIGUEZMertado) Lactic Acid, Blood Gas (test 1.4 mmol/L code = BGLA) Respiratory Rate (test code 0 = RESP RATE) Blood Gas+Lytes+Glu+Ca+Hgb+Hct+[id number] 12:13:00 Test Item Value Reference Range Interpretation Comments pH, Blood Gas (test code = 7.414 pH Units 7.35-7.45 N BGPH) pCO2 (test code = PCO2) 36.6 mm Hg 35-45 N pO2 (test code = PO2) 354.0 mm Hg 80-100 HH Bicarbonate (test code = 23.4 mmol/L 22.0-26.0 N HCO3) Base Excess (test code = BE) -0.9 mmol/L O2 Saturation (test code = 100.1 % 80.0-100.0 H O2SAT) Sodium, Blood Gas (test code 134 mmol/L 135-145 L = BGNA) Potassium, Blood Gas (test 4.6 mmol/L 3.5-4.5 H code = BGK) Chloride, Blood Gas (test 104 mmol/L 98-105 N code = BGCL) Calcium, Ionized, Blood Gas 0.94 mmol/L 1.00-1.50 LL (test code = BGCAI) Glucose, Blood Gas (test 121 mg/dL 75-115 H code = BGGLU) tHB (test code = RTHB) 10.2 gm/dL 12.2-17.4 L Hematocrit, Blood Gas (test 31.2 % 34.0-52.0 L code = BGHCT) O2Hb (test code = RO2HB) 98 80-100 N Carboxyhemoglobin (test code 0.9 % 0.0-20.0 N = CARHGB) Methemoglobin (test code = 1.7 % 0.0-20.0 N METHGB) FIO2 % (test code = FIO2) 100 % Patient Temperature (test 37.0 Degrees code = PTTEMP) Celcius Puncture Site (test code = Art line PUNSITE) Drawing Tech ID (test code = dr.lynley RODRIGUEZMertado) Lactic Acid, Blood Gas (test 1.3 mmol/L code = BGLA) Respiratory Rate (test code 0 = RESP RATE) Blood Gas+Lytes+Glu+Ca+Hgb+Hct+[id number] 11:45:00 Test Item Value Reference Range Interpretation Comments pH, Blood Gas (test code = 7.405 pH Units 7.35-7.45 N BGPH) pCO2 (test code = PCO2) 40.4 mm Hg 35-45 N pO2 (test code = PO2) 318.0 mm Hg 80-100 HH Bicarbonate (test code = 25.3 mmol/L 22.0-26.0 N HCO3) Base Excess (test code = BE) 0.5 mmol/L O2 Saturation (test code = 100.0 % 80.0-100.0 N O2SAT) Sodium, Blood Gas (test code 137 mmol/L 135-145 N = BGNA) Potassium, Blood Gas (test 4.5 mmol/L 3.5-4.5 N code = BGK) Chloride, Blood Gas (test 105 mmol/L 98-105 N code = BGCL) Calcium, Ionized, Blood Gas 1.01 mmol/L 1.00-1.50 N (test code = BGCAI) Glucose, Blood Gas (test 99 mg/dL 75-115 N code = BGGLU) tHB (test code = RTHB) 11.3 gm/dL 12.2-17.4 L Hematocrit, Blood Gas (test 34.7 % 34.0-52.0 N code = BGHCT) O2Hb (test code = RO2HB) 98 80-100 N Carboxyhemoglobin (test code 0.7 % 0.0-20.0 N = CARHGB) Methemoglobin (test code = 1.6 % 0.0-20.0 N METHGB) FIO2 % (test code = FIO2) 100 % Patient Temperature (test 37.0 Degrees code = PTTEMP) Celcius Puncture Site (test code = Art line PUNSITE) Drawing Tech ID (test code = DR TO RODRIGUEZMertado) Lactic Acid, Blood Gas (test 1.0 mmol/L code = BGLA) Respiratory Rate (test code 0 = RESP RATE) Blood Gas+Lytes+Glu+Ca+Hgb+Hct+[id number] 09:48:00 Test Item Value Reference Range Interpretation Comments pH, Blood Gas (test code = 7.375 pH Units 7.35-7.45 N BGPH) pCO2 (test code = PCO2) 43.5 mm Hg 35-45 N pO2 (test code = PO2) 404.0 mm Hg 80-100 HH Bicarbonate (test code = 25.4 mmol/L 22.0-26.0 N HCO3) Base Excess (test code = BE) -0.1 mmol/L O2 Saturation (test code = 100.1 % 80.0-100.0 H O2SAT) Sodium, Blood Gas (test code 135 mmol/L 135-145 N = BGNA) Potassium, Blood Gas (test 3.9 mmol/L 3.5-4.5 N code = BGK) Chloride, Blood Gas (test 104 mmol/L 98-105 N code = BGCL) Calcium, Ionized, Blood Gas 1.15 mmol/L 1.00-1.50 N (test code = BGCAI) Glucose, Blood Gas (test 130 mg/dL 75-115 H code = BGGLU) tHB (test code = RTHB) 13.7 gm/dL 12.2-17.4 N Hematocrit, Blood Gas (test 42.0 % 34.0-52.0 N code = BGHCT) O2Hb (test code = RO2HB) 98 80-100 N Carboxyhemoglobin (test code 0.6 % 0.0-20.0 N = CARHGB) Methemoglobin (test code = 1.3 % 0.0-20.0 N METHGB) FIO2 % (test code = FIO2) 100 % Patient Temperature (test 37.0 Degrees code = PTTEMP) Celcius Puncture Site (test code = Art line PUNSITE) Drawing Tech ID (test code = dr.lynley RODRIGUEZTECH) Lactic Acid, Blood Gas (test 0.6 mmol/L code = BGLA) Respiratory Rate (test code 0 = RESP RATE) Blood Gas+Lytes+Glu+Ca+Hgb+Hct+[id number] 08:50:00 Test Item Value Reference Range Interpretation Comments pH, Blood Gas (test code = 7.425 pH Units 7.35-7.45 N BGPH) pCO2 (test code = PCO2) 38.8 mm Hg 35-45 N pO2 (test code = PO2) 292.0 mm Hg 80-100 HH Bicarbonate (test code = 25.4 mmol/L 22.0-26.0 N HCO3) Base Excess (test code = BE) 1.0 mmol/L O2 Saturation (test code = 100.0 % 80.0-100.0 N O2SAT) Sodium, Blood Gas (test code 137 mmol/L 135-145 N = BGNA) Potassium, Blood Gas (test 4.1 mmol/L 3.5-4.5 N code = BGK) Chloride, Blood Gas (test 103 mmol/L 98-105 N code = BGCL) Calcium, Ionized, Blood Gas 1.17 mmol/L 1.00-1.50 N (test code = BGCAI) Glucose, Blood Gas (test 95 mg/dL 75-115 N code = BGGLU) tHB (test code = RTHB) 15.3 gm/dL 12.2-17.4 N Hematocrit, Blood Gas (test 47.0 % 34.0-52.0 N code = BGHCT) O2Hb (test code = RO2HB) 99 80-100 N Carboxyhemoglobin (test code 0.5 % 0.0-20.0 N = CARHGB) Methemoglobin (test code = 1.0 % 0.0-20.0 N METHGB) FIO2 % (test code = FIO2) 100 % Patient Temperature (test 37.0 Degrees code = PTTEMP) Celcius Puncture Site (test code = Art line PUNSITE) Drawing Tech ID (test code = DR TO RODRIGUEZTECH) Lactic Acid, Blood Gas (test 0.6 mmol/L code = BGLA) Respiratory Rate (test code 0 = RESP RATE) Basic Metabolic [id number] 04:11:00 Test Item Value Reference Range Interpretation Comments Sodium (test code = 137 mmol/L 135-145 N NA) Potassium (test 4.6 mmol/L 3.5-5.1 N code = K) Chloride (test code 100 mmol/L 98-105 N = CL) Carbon Dioxide 28 mmol/L 22-29 N (test code = CO2) Glucose (test code 98 mg/dL 70-115 N = GLU) Blood Urea Nitrogen 18 mg/dL 6-20 N (test code = BUN) Creatinine (test 1.3 mg/dL 0.7-1.2 H code = CREAT) Calcium (test code 8.8 mg/dL 8.3-10.5 N = CA) BUN/Creatinine 13.8 Ratio (test code = BCRATIO) Anion Gap (test 9 mmol/L 7-16 N code = AGAP) Estimated GFR (test >60 eGFR (es timated code = GFR) mL/min/1.73m2 Glomerular Curry tration Rate) is an est imated value,calculate d from the patient's s chelle creatinine usin g the MDRD equation.I t is NOT the patient 's actual GFR. The eGFR provides a more clinicallyusefu l measure of kidn ey disease than se rum creatinine alone.This calculation tomas es sex and race into account, if the informationis provided. If th e race is not provided , and the patient isAfrican-Ameri can, multiply by 1.2 12. If sex is not prov ided, and thepatient is female, multipl y by 0.742. Results for patients <18 ye ars ofage have not been validated by th e MDRD study and shoul d be interpretedwith caution.eGFR Re sult Interpretation: eGFR > or = 60 is in t he Normal RangeeGF R < 60 may mean kidney diseaseeGFR < 1 5 may mean kidney failureRange s recommended by the National Kidney Foundation,http ://nkd ep.nih.gov CBC with [id number] 04:05:00 Test Item Value Reference Range Interpretation Comments WBC (test code = WBC) 8.4 K/cumm 4.4-10.5 N RBC (test code = RBC) 4.47 M/cumm 4.10-5.70 N Hemoglobin (test code = HGB) 13.2 gm/dL 13.4-17.4 L Hematocrit (test code = HCT) 38.8 % 38.7-52.0 N MCV (test code = MCV) 86.9 fL 80-100 N MCH (test code = MCH) 29.6 pg 27.0-32.5 N MCHC (test code = MCHC) 34.0 g/dL 32.0-37.5 N RDW (test code = RDW) 14.0 % 11.5-14.5 N Platelet Count (test code = 220 K/cumm 140-440 N PLTCT) MPV (test code = MPV) 7.2 fL Diff Method (test code = DIFFM) Auto Neutrophil (test code = NEUT) 65.0 % 36-70 N Lymphocyte (test code = LYMPH) 27.2 % 12-44 N Monocyte (test code = MONO) 6.1 % 0-11 N Eosinophil (test code = EOS) 1.3 % 0-7 N Basophil (test code = BASO) 0.5 % 0-2 N Neutro Abs (test code = ANEUT) 5.4 K/cumm 1.6-7.4 N Lymph Abs (test code = ALYMPH) 2.3 K/cumm 0.5-4.6 N Attala Abs (test code = AMONO) 0.5 K/cumm 0.0-1.2 N Eos Abs (test code = AEOS) 0.11 K/cumm 0.00-0.74 N Baso Abs (test code = ABASO) 0.0 K/cumm 0.00-0.21 N Partial Thromboplastin [id number] 03:57:00 Test Item Value Reference Range Interpretation Comments aPTT (test code = PTT) 28.20 seconds 24.39-37.25 N CBC with [id number] 14:32:00 Test Item Value Reference Range Interpretation Comments WBC (test code = WBC) 8.8 K/cumm 4.4-10.5 N RBC (test code = RBC) 4.43 M/cumm 4.10-5.70 N Hemoglobin (test code = HGB) 13.0 gm/dL 13.4-17.4 L Hematocrit (test code = HCT) 39.9 % 38.7-52.0 N MCV (test code = MCV) 90.1 fL 80-100 N MCH (test code = MCH) 29.4 pg 27.0-32.5 N MCHC (test code = MCHC) 32.7 g/dL 32.0-37.5 N RDW (test code = RDW) 14.3 % 11.5-14.5 N Platelet Count (test code = 211 K/cumm 140-440 N PLTCT) MPV (test code = MPV) 8.4 fL Diff Method (test code = DIFFM) Auto Neutrophil (test code = NEUT) 63.7 % 36-70 N Lymphocyte (test code = LYMPH) 28.3 % 12-44 N Monocyte (test code = MONO) 6.2 % 0-11 N Eosinophil (test code = EOS) 1.5 % 0-7 N Basophil (test code = BASO) 0.3 % 0-2 N Neutro Abs (test code = ANEUT) 5.6 K/cumm 1.6-7.4 N Lymph Abs (test code = ALYMPH) 2.5 K/cumm 0.5-4.6 N Attala Abs (test code = AMONO) 0.5 K/cumm 0.0-1.2 N Eos Abs (test code = AEOS) 0.13 K/cumm 0.00-0.74 N Baso Abs (test code = ABASO) 0.0 K/cumm 0.00-0.21 N Partial Thromboplastin [id number] 14:25:00 Test Item Value Reference Range Interpretation Comments aPTT (test code = PTT) 46.30 seconds 24.39-37.25 H Partial Thromboplastin [id number] 06:35:00 Test Item Value Reference Range Interpretation Comments aPTT (test code = PTT) 78.00 seconds 24.39-37.25 H Basic Metabolic [id number] 05:53:00 Test Item Value Reference Range Interpretation Comments Sodium (test code = 137 mmol/L 135-145 N NA) Potassium (test 4.4 mmol/L 3.5-5.1 N code = K) Chloride (test code 99 mmol/L 98-105 N = CL) Carbon Dioxide 28 mmol/L 22-29 N (test code = CO2) Glucose (test code 98 mg/dL 70-115 N = GLU) Blood Urea Nitrogen 18 mg/dL 6-20 N (test code = BUN) Creatinine (test 1.3 mg/dL 0.7-1.2 H code = CREAT) Calcium (test code 8.9 mg/dL 8.3-10.5 N = CA) BUN/Creatinine 13.8 Ratio (test code = BCRATIO) Anion Gap (test 10 mmol/L 7-16 N code = AGAP) Estimated GFR (test >60 eGFR (es timated code = GFR) mL/min/1.73m2 Glomerular Curry tration Rate) is an est imated value,calculate d from the patient's s chelle creatinine usin g the MDRD equation.I t is NOT the patient 's actual GFR. The eGFR provides a more clinicallyusefu l measure of kidn ey disease than se rum creatinine alone.This calculation tomas es sex and race into account, if the informationis provided. If th e race is not provided , and the patient isAfrican-Ameri can, multiply by 1.2 12. If sex is not prov ided, and thepatient is female, multipl y by 0.742. Results for patients <18 ye ars ofage have not been validated by th e MDRD study and shoul d be interpretedwith caution.eGFR Re sult Interpretation: eGFR > or = 60 is in t he Normal RangeeGF R < 60 may mean kidney diseaseeGFR < 1 5 may mean kidney failureRange s recommended by the National Kidney Foundation,http ://nkd ep.nih.gov Culture, Wound [id number] 10:15:00Specimen: KneeCollected: 05/03/2017 15:36 Status: Final Last Updated: 05/08/2017 10:15 Gram Stain (Final) (Final) 05/04/16 No organisms seen, Few WBC's Culture Result (Final) (Final) 05/04/17 No growth 24 hours 05/05/17 No growth 48 hours 05/06/17 No growth 3 days 05/07/17 No growth 4 days 05/08/17 No growth 5 days 05/08/17 Anaerobic culture:No anaerobes isolated at 5 daysBlood Type and [id number] 08:26:00 Test Item Value Reference Range Interpretation Comments ABO type (test code = ABO) A Rh Type (test code = RH) Positive Antibody Screen - [id number] 08:26:00 Test Item Value Reference Range Interpretation Comments Antibody Screen (test code = ABSCR) Negative Partial Thromboplastin [id number] 07:54:00 Test Item Value Reference Range Interpretation Comments aPTT (test code = PTT) 63.40 seconds 24.39-37.25 H CBC with [id number] 07:41:00 Test Item Value Reference Range Interpretation Comments WBC (test code = WBC) 8.4 K/cumm 4.4-10.5 N RBC (test code = RBC) 4.69 M/cumm 4.10-5.70 N Hemoglobin (test code = HGB) 13.7 gm/dL 13.4-17.4 N Hematocrit (test code = HCT) 41.0 % 38.7-52.0 N MCV (test code = MCV) 87.6 fL 80-100 N MCH (test code = MCH) 29.2 pg 27.0-32.5 N MCHC (test code = MCHC) 33.4 g/dL 32.0-37.5 N RDW (test code = RDW) 14.1 % 11.5-14.5 N Platelet Count (test code = 259 K/cumm 140-440 N PLTCT) MPV (test code = MPV) 7.5 fL Diff Method (test code = DIFFM) Auto Neutrophil (test code = NEUT) 71.6 % 36-70 H Lymphocyte (test code = LYMPH) 21.1 % 12-44 N Monocyte (test code = MONO) 6.3 % 0-11 N Eosinophil (test code = EOS) 0.6 % 0-7 N Basophil (test code = BASO) 0.3 % 0-2 N Neutro Abs (test code = ANEUT) 6.0 K/cumm 1.6-7.4 N Lymph Abs (test code = ALYMPH) 1.8 K/cumm 0.5-4.6 N Attala Abs (test code = AMONO) 0.5 K/cumm 0.0-1.2 N Eos Abs (test code = AEOS) 0.05 K/cumm 0.00-0.74 N Baso Abs (test code = ABASO) 0.0 K/cumm 0.00-0.21 N Partial Thromboplastin [id number] 05:28:00 Test Item Value Reference Range Interpretation Comments aPTT (test code = PTT) 64.20 seconds 24.39-37.25 H CBC with [id number] 05:19:00 Test Item Value Reference Range Interpretation Comments WBC (test code = WBC) 11.2 K/cumm 4.4-10.5 H RBC (test code = RBC) 4.49 M/cumm 4.10-5.70 N Hemoglobin (test code = HGB) 12.8 gm/dL 13.4-17.4 L Hematocrit (test code = HCT) 39.7 % 38.7-52.0 N MCV (test code = MCV) 88.4 fL 80-100 N MCH (test code = MCH) 28.5 pg 27.0-32.5 N MCHC (test code = MCHC) 32.3 g/dL 32.0-37.5 N RDW (test code = RDW) 14.2 % 11.5-14.5 N Platelet Count (test code = 251 K/cumm 140-440 N PLTCT) MPV (test code = MPV) 7.9 fL Diff Method (test code = DIFFM) Auto Neutrophil (test code = NEUT) 80.4 % 36-70 H Lymphocyte (test code = LYMPH) 13.3 % 12-44 N Monocyte (test code = MONO) 5.8 % 0-11 N Eosinophil (test code = EOS) 0.4 % 0-7 N Basophil (test code = BASO) 0.2 % 0-2 N Neutro Abs (test code = ANEUT) 9.0 K/cumm 1.6-7.4 H Lymph Abs (test code = ALYMPH) 1.5 K/cumm 0.5-4.6 N Attala Abs (test code = AMONO) 0.7 K/cumm 0.0-1.2 N Eos Abs (test code = AEOS) 0.05 K/cumm 0.00-0.74 N Baso Abs (test code = ABASO) 0.0 K/cumm 0.00-0.21 N Partial Thromboplastin [id number] 18:31:00 Test Item Value Reference Range Interpretation Comments aPTT (test code = PTT) 54.80 seconds 24.39-37.25 H Partial Thromboplastin [id number] 11:46:00 Test Item Value Reference Range Interpretation Comments aPTT (test code = PTT) 66.60 seconds 24.39-37.25 H Partial Thromboplastin [id number] 04:57:00 Test Item Value Reference Range Interpretation Comments aPTT (test 87.90 seconds 24.39-37.25 H READ BACK LAB code = PTT) VALUESVERIFIED BY REPEAT TESTINGrechecke d & called to kush ,,rn @ 0456, on heparin/mdj CBC with [id number] 04:19:00 Test Item Value Reference Range Interpretation Comments WBC (test code = WBC) 9.5 K/cumm 4.4-10.5 N RBC (test code = RBC) 4.49 M/cumm 4.10-5.70 N Hemoglobin (test code = HGB) 13.0 gm/dL 13.4-17.4 L Hematocrit (test code = HCT) 39.2 % 38.7-52.0 N MCV (test code = MCV) 87.3 fL 80-100 N MCH (test code = MCH) 29.0 pg 27.0-32.5 N MCHC (test code = MCHC) 33.2 g/dL 32.0-37.5 N RDW (test code = RDW) 14.0 % 11.5-14.5 N Platelet Count (test code = 204 K/cumm 140-440 N PLTCT) MPV (test code = MPV) 7.6 fL Diff Method (test code = DIFFM) Auto Neutrophil (test code = NEUT) 86.9 % 36-70 H Lymphocyte (test code = LYMPH) 9.1 % 12-44 L Monocyte (test code = MONO) 3.1 % 0-11 N Eosinophil (test code = EOS) 0.7 % 0-7 N Basophil (test code = BASO) 0.1 % 0-2 N Neutro Abs (test code = ANEUT) 8.2 K/cumm 1.6-7.4 H Lymph Abs (test code = ALYMPH) 0.9 K/cumm 0.5-4.6 N Attala Abs (test code = AMONO) 0.3 K/cumm 0.0-1.2 N Eos Abs (test code = AEOS) 0.07 K/cumm 0.00-0.74 N Baso Abs (test code = ABASO) 0.0 K/cumm 0.00-0.21 N Partial Thromboplastin [id number] 21:04:00 Test Item Value Reference Range Interpretation Comments aPTT (test code = PTT) 45.10 seconds 24.39-37.25 H Partial Thromboplastin [id number] 13:37:00 Test Item Value Reference Range Interpretation Comments aPTT (test code = PTT) 47.80 seconds 24.39-37.25 H Basic Metabolic [id number] 05:58:00 Test Item Value Reference Range Interpretation Comments Sodium (test code = 139 mmol/L 135-145 N NA) Potassium (test 3.9 mmol/L 3.5-5.1 N code = K) Chloride (test code 102 mmol/L 98-105 N = CL) Carbon Dioxide 25 mmol/L 22-29 N (test code = CO2) Glucose (test code 97 mg/dL 70-115 N = GLU) Blood Urea Nitrogen 14 mg/dL 6-20 N (test code = BUN) Creatinine (test 1.2 mg/dL 0.7-1.2 N code = CREAT) Calcium (test code 8.1 mg/dL 8.3-10.5 L = CA) BUN/Creatinine 11.7 Ratio (test code = BCRATIO) Anion Gap (test 12 mmol/L 7-16 N code = AGAP) Estimated GFR (test >60 eGFR (es timated code = GFR) mL/min/1.73m2 Glomerular Curry tration Rate) is an est imated value,calculate d from the patient's s chelle creatinine usin g the MDRD equation.I t is NOT the patient 's actual GFR. The eGFR provides a more clinicallyusefu l measure of kidn ey disease than se rum creatinine alone.This calculation tomas es sex and race into account, if the informationis provided. If th e race is not provided , and the patient isAfrican-Ameri can, multiply by 1.2 12. If sex is not prov ided, and thepatient is female, multipl y by 0.742. Results for patients <18 ye ars ofage have not been validated by th e MDRD study and shoul d be interpretedwith caution.eGFR Re sult Interpretation: eGFR > or = 60 is in t he Normal RangeeGF R < 60 may mean kidney diseaseeGFR < 1 5 may mean kidney failureRange s recommended by the National Kidney Foundation,http ://nkd ep.nih.gov Partial Thromboplastin [id number] 05:49:00 Test Item Value Reference Range Interpretation Comments aPTT (test code = PTT) 45.90 seconds 24.39-37.25 H CBC with [id number] 05:26:00 Test Item Value Reference Range Interpretation Comments WBC (test code = WBC) 6.5 K/cumm 4.4-10.5 N RBC (test code = RBC) 4.30 M/cumm 4.10-5.70 N Hemoglobin (test code = HGB) 12.5 gm/dL 13.4-17.4 L Hematocrit (test code = HCT) 37.0 % 38.7-52.0 L MCV (test code = MCV) 86.2 fL 80-100 N MCH (test code = MCH) 29.1 pg 27.0-32.5 N MCHC (test code = MCHC) 33.8 g/dL 32.0-37.5 N RDW (test code = RDW) 14.2 % 11.5-14.5 N Platelet Count (test code = 164 K/cumm 140-440 N PLTCT) MPV (test code = MPV) 8.0 fL Diff Method (test code = DIFFM) Auto Neutrophil (test code = NEUT) 64.2 % 36-70 N Lymphocyte (test code = LYMPH) 27.2 % 12-44 N Monocyte (test code = MONO) 5.8 % 0-11 N Eosinophil (test code = EOS) 2.2 % 0-7 N Basophil (test code = BASO) 0.5 % 0-2 N Neutro Abs (test code = ANEUT) 4.2 K/cumm 1.6-7.4 N Lymph Abs (test code = ALYMPH) 1.8 K/cumm 0.5-4.6 N [place] Abs (test code = AMONO) 0.4 K/cumm 0.0-1.2 N Eos Abs (test code = AEOS) 0.14 K/cumm 0.00-0.74 N Baso Abs (test code = ABASO) 0.0 K/cumm 0.00-0.21 N RBC, Crossmatch 01:44:00 Test Item Value Reference Range Interpretation Comments Product 1 Code (test code = E4531 PRODCODE1) Unit 1 ID (test code = [id number] UNITID1) Unit 1 ABO (test code = A UNITABO1) Unit 1 Rh (test code = POS UNITRH1) Unit 1 Interp (test code = Compatible UNITINTERP1) Unit 1 Status (test code = RE UNITSTAT1) Product 2 Code (test code = E0336 PRODCODE2) Unit 2 ID (test code = [id number] UNITID2) Unit 2 ABO (test code = A UNITABO2) Unit 2 Rh (test code = POS UNITRH2) Unit 2 Interp (test code = Compatible UNITINTERP2) Unit 2 Status (test code = RE UNITSTAT2) Crystal, Body [id number] 11:26:00 Test Item Value Reference Range Interpretation Comments Source (test code = Synovial Fluid R SOURCE) KNEE Crystal Exam (test None seen code = BFCRYS) Pathologist Review YES Dr. Nicko Wylie MD (test code = PATHREV) Basic Metabolic [id number] 04:51:00 Test Item Value Reference Range Interpretation Comments Sodium (test code = 137 mmol/L 135-145 N NA) Potassium (test 3.9 mmol/L 3.5-5.1 N code = K) Chloride (test code 100 mmol/L 98-105 N = CL) Carbon Dioxide 25 mmol/L 22-29 N (test code = CO2) Glucose (test code 106 mg/dL 70-115 N = GLU) Blood Urea Nitrogen 11 mg/dL 6-20 N (test code = BUN) Creatinine (test 1.2 mg/dL 0.7-1.2 N code = CREAT) Calcium (test code 8.5 mg/dL 8.3-10.5 N = CA) BUN/Creatinine 9.2 Ratio (test code = BCRATIO) Anion Gap (test 12 mmol/L 7-16 N code = AGAP) Estimated GFR (test >60 eGFR (es timated code = GFR) mL/min/1.73m2 Glomerular Curry tration Rate) is an est imated value,calculate d from the patient's s chelle creatinine usin g the MDRD equation.I t is NOT the patient 's actual GFR. The eGFR provides a more clinicallyusefu l measure of kidn ey disease than se rum creatinine alone.This calculation tomas es sex and race into account, if the informationis provided. If th e race is not provided , and the patient isAfrican-Ameri can, multiply by 1.2 12. If sex is not prov ided, and thepatient is female, multipl y by 0.742. Results for patients <18 ye ars ofage have not been validated by frances juan MDRD study and joy sales be interpretedwith caution.eGFR Re sult Interpretation: eGFR > or = 60 is in t he Normal RangeeGF R < 60 may mean kidney diseaseeGFR < 1 5 may mean kidney failureRange s recommended by the [employer] Kid[employer] Foundation,http ://nkd ep.nih.gov Partial Thromboplastin [id number] 04:45:00 Test Item Value Reference Range Interpretation Comments aPTT (test code = PTT) 51.30 seconds 24.39-37.25 H CBC with [id number] 04:24:00 Test Item Value Reference Range Interpretation Comments WBC (test code = WBC) 8.1 K/cumm 4.4-10.5 N RBC (test code = RBC) 4.57 M/cumm 4.10-5.70 N Hemoglobin (test code = HGB) 13.4 gm/dL 13.4-17.4 N Hematocrit (test code = HCT) 40.9 % 38.7-52.0 N MCV (test code = MCV) 89.6 fL 80-100 N MCH (test code = MCH) 29.3 pg 27.0-32.5 N MCHC (test code = MCHC) 32.7 g/dL 32.0-37.5 N RDW (test code = RDW) 14.3 % 11.5-14.5 N Platelet Count (test code = 185 K/cumm 140-440 N PLTCT) MPV (test code = MPV) 7.8 fL Diff Method (test code = DIFFM) Auto Neutrophil (test code = NEUT) 63.7 % 36-70 N Lymphocyte (test code = LYMPH) 28.2 % 12-44 N Monocyte (test code = MONO) 5.9 % 0-11 N Eosinophil (test code = EOS) 1.8 % 0-7 N Basophil (test code = BASO) 0.4 % 0-2 N Neutro Abs (test code = ANEUT) 5.2 K/cumm 1.6-7.4 N Lymph Abs (test code = ALYMPH) 2.3 K/cumm 0.5-4.6 N Attala Abs (test code = AMONO) 0.5 K/cumm 0.0-1.2 N Eos Abs (test code = AEOS) 0.15 K/cumm 0.00-0.74 N Baso Abs (test code = ABASO) 0.0 K/cumm 0.00-0.21 N Cell Count, Body [id number] 19:00:00 Test Item Value Reference Range Interpretation Comments Source (test code = Synovial Fluid (right SOURCE) knee) Color (test code = yellow HBFCOLOR) Clarity (test code = Cloudy CLAR) WBC (test code = WBC) 218 RBC (test code = RBC) 0 Cytospin Performed (test Yes code = CYTO) Neutrophil (test code = 84 NEUT) Lymphocyte (test code = 10 LYMPH) Macrophage, Fl (test 6 code = HBFMACRO) US DUPLX EXT VEIN COMPRS, [id number] 16:22:23EXAM: RIGHT LOWER EXTREMITY VENOUS DUPLEX ULTRASOUNDINDICATION: Right knee painCOMPARISON: None TECHNIQUE: Zaman scale, color Doppler and spectral waveform analysis ofthe right lower extremity deep venous system was performed. FINDINGS: RIGHT:COMMON FEMORAL: Fully compressible with normal spontaneous waveforms. PROXIMAL GREATER SAPHENOUS: Fully compressible with normal spontaneouswaveforms.PROFUNDA: Patent with normal spontaneous waveforms.FEMORAL: Fully compressible with normal spontaneous waveforms. POPLITEAL: Fully compressible with normal spontaneous waveforms. Other: Normal response to augmentation. IMPRESSION: No evidence of deep venous thrombosis within the right lower extremity. LOCATION: R16XR KNEE 2V.-[id number] 13:32:34EXAM: XR KNEE 2 VIEWS, RIGHTINDICATION: Swelling and painCOMPARISON: None availableTECHNIQUE: AP andlateral views of the right knee.FINDINGS: No acute fracture or dislocation is identified. No osseous lesions.There is mild joint space narrowing with subchondral sclerosis. Thereare small tricompartmental osteophytes. There is a moderate jointeffusion. There is benign appearing cortical thickening along thelateral anterior aspect of the proximal tibia. No soft tissueabnormality is identified.IMPRESSION: Mild DJD of the right knee with moderate suprapatellar joint effusion.LOCATION: M60[facility] Thromboplastin [id number] 05:19:00 Test Item Value Reference Range Interpretation Comments aPTT (test code = PTT) 58.90 seconds 24.39-37.25 H Basic Metabolic [id number] 05:17:00 Test Item Value Reference Range Interpretation Comments Sodium (test code = 139 mmol/L 135-145 N NA) Potassium (test 3.8 mmol/L 3.5-5.1 N code = K) Chloride (test code 102 mmol/L 98-105 N = CL) Carbon Dioxide 26 mmol/L 22-29 N (test code = CO2) Glucose (test code 98 mg/dL 70-115 N = GLU) Blood Urea Nitrogen 11 mg/dL 6-20 N (test code = BUN) Creatinine (test 1.4 mg/dL 0.7-1.2 H code = CREAT) Calcium (test code 8.5 mg/dL 8.3-10.5 N = CA) BUN/Creatinine 7.9 Ratio (test code = BCRATIO) Anion Gap (test 11 mmol/L 7-16 N code = AGAP) Estimated GFR (test 57 eGFR (es timated code = GFR) mL/min/1.73m2 Glomerular Curry tration Rate) is an est imated value,calculate d from the patient's s chelle creatinine usin g the MDRD equation.I t is NOT the patient 's actual GFR. The eGFR provides a more clinicallyusefu l measure of kidn ey disease than se rum creatinine alone.This calculation tomas es sex and race into account, if the informationis provided. If th e race is not provided , and the patient isAfrican-Ameri can, multiply by 1.2 12. If sex is not prov ided, and thepatient is female, multipl y by 0.742. Results for patients <18 ye ars ofage have not been validated by th e MDRD study and shoul d be interpretedwith caution.eGFR Re sult Interpretation: eGFR > or = 60 is in t he Normal RangeeGF R < 60 may mean kidney diseaseeGFR < 1 5 may mean kidney failureRange s recommended by the National Kidney Foundation,http ://nkd ep.nih.gov Uric [id number] 05:17:00 Test Item Value Reference Range Interpretation Comments Uric Acid (test code = UA) 9.1 mg/dL 3.4-7.0 H Magnesium, [id number] 05:17:00 Test Item Value Reference Range Interpretation Comments Magnesium (test code = MG) 2.0 mg/dL 1.7-2.5 N [id number] 05:17:00 Test Item Value Reference Range Interpretation Comments Phosphorus (test code = PO4) 3.8 mg/dL 2.70-4.50 N CBC with [id number] 05:14:00 Test Item Value Reference Range Interpretation Comments WBC (test code = WBC) 6.5 K/cumm 4.4-10.5 N RBC (test code = RBC) 4.29 M/cumm 4.10-5.70 N Hemoglobin (test code = HGB) 12.5 gm/dL 13.4-17.4 L Hematocrit (test code = HCT) 38.4 % 38.7-52.0 L MCV (test code = MCV) 89.5 fL 80-100 N MCH (test code = MCH) 29.2 pg 27.0-32.5 N MCHC (test code = MCHC) 32.7 g/dL 32.0-37.5 N RDW (test code = RDW) 14.1 % 11.5-14.5 N Platelet Count (test code = 168 K/cumm 140-440 N PLTCT) MPV (test code = MPV) 7.6 fL Diff Method (test code = DIFFM) Auto Neutrophil (test code = NEUT) 65.7 % 36-70 N Lymphocyte (test code = LYMPH) 26.5 % 12-44 N Monocyte (test code = MONO) 6.1 % 0-11 N Eosinophil (test code = EOS) 1.3 % 0-7 N Basophil (test code = BASO) 0.5 % 0-2 N Neutro Abs (test code = ANEUT) 4.3 K/cumm 1.6-7.4 N Lymph Abs (test code = ALYMPH) 1.7 K/cumm 0.5-4.6 N Attala Abs (test code = AMONO) 0.4 K/cumm 0.0-1.2 N Eos Abs (test code = AEOS) 0.09 K/cumm 0.00-0.74 N Baso Abs (test code = ABASO) 0.0 K/cumm 0.00-0.21 N Partial Thromboplastin [id number] 21:50:00 Test Item Value Reference Range Interpretation Comments aPTT (test code = PTT) 58.80 seconds 24.39-37.25 H Partial Thromboplastin [id number] 14:34:00 Test Item Value Reference Range Interpretation Comments aPTT (test code = PTT) 40.70 seconds 24.39-37.25 H Partial Thromboplastin [id number] 07:34:00 Test Item Value Reference Range Interpretation Comments aPTT (test code = PTT) 52.20 seconds 24.39-37.25 H CBC with [id number] 05:48:00 Test Item Value Reference Range Interpretation Comments WBC (test code = WBC) 6.2 K/cumm 4.4-10.5 N RBC (test code = RBC) 4.41 M/cumm 4.10-5.70 N Hemoglobin (test code = HGB) 12.8 gm/dL 13.4-17.4 L Hematocrit (test code = HCT) 39.6 % 38.7-52.0 N MCV (test code = MCV) 89.6 fL 80-100 N MCH (test code = MCH) 29.0 pg 27.0-32.5 N MCHC (test code = MCHC) 32.4 g/dL 32.0-37.5 N RDW (test code = RDW) 14.2 % 11.5-14.5 N Platelet Count (test code = 179 K/cumm 140-440 N PLTCT) MPV (test code = MPV) 7.9 fL Diff Method (test code = DIFFM) Auto Neutrophil (test code = NEUT) 63.5 % 36-70 N Lymphocyte (test code = LYMPH) 28.2 % 12-44 N Monocyte (test code = MONO) 5.9 % 0-11 N Eosinophil (test code = EOS) 1.8 % 0-7 N Basophil (test code = BASO) 0.6 % 0-2 N Neutro Abs (test code = ANEUT) 3.9 K/cumm 1.6-7.4 N Lymph Abs (test code = ALYMPH) 1.7 K/cumm 0.5-4.6 N Attala Abs (test code = AMONO) 0.4 K/cumm 0.0-1.2 N Eos Abs (test code = AEOS) 0.11 K/cumm 0.00-0.74 N Baso Abs (test code = ABASO) 0.0 K/cumm 0.00-0.21 N [id number] 05:35:00 Test Item Value Reference Range Interpretation Comments Phosphorus (test code = PO4) 3.7 mg/dL 2.70-4.50 N Magnesium, [id number] 05:35:00 Test Item Value Reference Range Interpretation Comments Magnesium (test code = MG) 2.1 mg/dL 1.7-2.5 N Basic Metabolic [id number] 05:35:00 Test Item Value Reference Range Interpretation Comments Sodium (test code = 140 mmol/L 135-145 N NA) Potassium (test 3.9 mmol/L 3.5-5.1 N code = K) Chloride (test code 103 mmol/L 98-105 N = CL) Carbon Dioxide 27 mmol/L 22-29 N (test code = CO2) Glucose (test code 100 mg/dL 70-115 N = GLU) Blood Urea Nitrogen 13 mg/dL 6-20 N (test code = BUN) Creatinine (test 1.3 mg/dL 0.7-1.2 H code = CREAT) Calcium (test code 8.5 mg/dL 8.3-10.5 N = CA) BUN/Creatinine 10.0 Ratio (test code = BCRATIO) Anion Gap (test 10 mmol/L 7-16 N code = AGAP) Estimated GFR (test >60 eGFR (es timated code = GFR) mL/min/1.73m2 Glomerular Curry tration Rate) is an est imated value,calculate d from the patient's s chelle creatinine usin g the MDRD equation.I t is NOT the patient 's actual GFR. The eGFR provides a more clinicallyusefu l measure of kidn ey disease than se rum creatinine alone.This calculation tomas es sex and race into account, if the informationis provided. If th e race is not provided , and the patient isAfrican-Ameri can, multiply by 1.2 12. If sex is not prov ided, and thepatient is female, multipl y by 0.742. Results for patients <18 ye ars ofage have not been validated by th e MDRD study and shoul d be interpretedwith caution.eGFR Re sult Interpretation: eGFR > or = 60 is in t he Normal RangeeGF R < 60 may mean kidney diseaseeGFR < 1 5 may mean kidney failureRange s recommended by the National Kidney Foundation,http ://nkd ep.nih.gov Partial Thromboplastin [id number] 23:02:00 Test Item Value Reference Range Interpretation Comments aPTT (test code = PTT) 43.40 seconds 24.39-37.25 H Partial Thromboplastin [id number] 13:13:00 Test Item Value Reference Range Interpretation Comments aPTT (test code = PTT) 41.60 seconds 24.39-37.25 H Basic Metabolic [id number] 05:18:00 Test Item Value Reference Range Interpretation Comments Sodium (test code = 138 mmol/L 135-145 N NA) Potassium (test 4.3 mmol/L 3.5-5.1 N code = K) Chloride (test code 101 mmol/L 98-105 N = CL) Carbon Dioxide 27 mmol/L 22-29 N (test code = CO2) Glucose (test code 103 mg/dL 70-115 N = GLU) Blood Urea Nitrogen 10 mg/dL 6-20 N (test code = BUN) Creatinine (test 1.3 mg/dL 0.7-1.2 H code = CREAT) Calcium (test code 8.6 mg/dL 8.3-10.5 N = CA) BUN/Creatinine 7.7 Ratio (test code = BCRATIO) Anion Gap (test 10 mmol/L 7-16 N code = AGAP) Estimated GFR (test >60 eGFR (es timated code = GFR) mL/min/1.73m2 Glomerular Curry tration Rate) is an est imated value,calculate d from the patient's s chelle creatinine usin g the MDRD equation.I t is NOT the patient 's actual GFR. The eGFR provides a more clinicallyusefu l measure of kidn ey disease than se rum creatinine alone.This calculation tomas es sex and race into account, if the informationis provided. If th e race is not provided , and the patient isAfrican-Ameri can, multiply by 1.2 12. If sex is not prov ided, and thepatient is female, multipl y by 0.742. Results for patients <18 ye ars ofage have not been validated by frances juan MDRD study and joy sales be interpretedwith caution.eGFR Re sult Interpretation: eGFR > or = 60 is in t he Normal RangeeGF R < 60 may mean kidney diseaseeGFR < 1 5 may mean kidney failureRange s recommended by the National Kidney Foundation,http ://nkd ep.nih.gov Partial Thromboplastin [id number] 05:15:00 Test Item Value Reference Range Interpretation Comments aPTT (test code = PTT) 29.30 seconds 24.39-37.25 N Prothrombin [id number] 05:12:00 Test Item Value Reference Range Interpretation Comments PT (test code = PT) 10.60 seconds 9.78-13.35 N INR (test code = INR) 0.93 Ratio 0.6-1.2 N Glycosylated [id number] 05:05:00 Test Item Value Reference Range Interpretation Comments HBA1c (test code = HBA1C) 5.3 % 4.8-5.9 N CBC with [id number] 04:50:00 Test Item Value Reference Range Interpretation Comments WBC (test code = WBC) 5.1 K/cumm 4.4-10.5 N RBC (test code = RBC) 4.56 M/cumm 4.10-5.70 N Hemoglobin (test code = HGB) 13.6 gm/dL 13.4-17.4 N Hematocrit (test code = HCT) 40.8 % 38.7-52.0 N MCV (test code = MCV) 89.3 fL 80-100 N MCH (test code = MCH) 29.7 pg 27.0-32.5 N MCHC (test code = MCHC) 33.3 g/dL 32.0-37.5 N RDW (test code = RDW) 13.9 % 11.5-14.5 N Platelet Count (test code = 175 K/cumm 140-440 N PLTCT) MPV (test code = MPV) 7.7 fL Diff Method (test code = DIFFM) Auto Neutrophil (test code = NEUT) 61.6 % 36-70 N Lymphocyte (test code = LYMPH) 30.4 % 12-44 N Monocyte (test code = MONO) 5.3 % 0-11 N Eosinophil (test code = EOS) 2.2 % 0-7 N Basophil (test code = BASO) 0.5 % 0-2 N Neutro Abs (test code = ANEUT) 3.1 K/cumm 1.6-7.4 N Lymph Abs (test code = ALYMPH) 1.5 K/cumm 0.5-4.6 N Attala Abs (test code = AMONO) 0.3 K/cumm 0.0-1.2 N Eos Abs (test code = AEOS) 0.11 K/cumm 0.00-0.74 N Baso Abs (test code = ABASO) 0.0 K/cumm 0.00-0.21 N Basic Metabolic [id number] 17:18:00 Test Item Value Reference Range Interpretation Comments Sodium (test code = 139 mmol/L 135-145 N NA) Potassium (test 3.7 mmol/L 3.5-5.1 N code = K) Chloride (test code 103 mmol/L 98-105 N = CL) Carbon Dioxide 25 mmol/L 22-29 N (test code = CO2) Glucose (test code 91 mg/dL 70-115 N = GLU) Blood Urea Nitrogen 11 mg/dL 6-20 N (test code = BUN) Creatinine (test 1.2 mg/dL 0.7-1.2 N code = CREAT) Calcium (test code 8.7 mg/dL 8.3-10.5 N = CA) BUN/Creatinine 9.2 Ratio (test code = BCRATIO) Anion Gap (test 11 mmol/L 7-16 N code = AGAP) Estimated GFR (test >60 eGFR (es timated code = GFR) mL/min/1.73m2 Glomerular Curry tration Rate) is an est imated value,calculate d from the patient's s chelle creatinine usin g the MDRD equation.I t is NOT the patient 's actual GFR. The eGFR provides a more clinicallyusefu l measure of kidn ey disease than se rum creatinine alone.This calculation tomas es sex and race into account, if the informationis provided. If th e race is not provided , and the patient isAfrican-Ameri can, multiply by 1.2 12. If sex is not prov ided, and thepatient is female, multipl y by 0.742. Results for patients <18 ye ars ofage have not been validated by frances juan MDRD study and joy sales be interpretedwith caution.eGFR Re sult Interpretation: eGFR > or = 60 is in t he Normal RangeeGF R < 60 may mean kidney diseaseeGFR < 1 5 may mean kidney failureRange s recommended by the National Kidney Foundation,http ://nkd ep.nih.gov Partial Thromboplastin [id number] 17:02:00 Test Item Value Reference Range Interpretation Comments aPTT (test code = PTT) 28.90 seconds 24.39-37.25 N Prothrombin [id number] 16:59:00 Test Item Value Reference Range Interpretation Comments PT (test code = PT) 10.20 seconds 9.78-13.35 N INR (test code = INR) 0.89 Ratio 0.6-1.2 N CBC with [id number] 16:49:00 Test Item Value Reference Range Interpretation Comments WBC (test code = WBC) 4.8 K/cumm 4.4-10.5 N RBC (test code = RBC) 4.70 M/cumm 4.10-5.70 N Hemoglobin (test code = HGB) 13.6 gm/dL 13.4-17.4 N Hematocrit (test code = HCT) 42.2 % 38.7-52.0 N MCV (test code = MCV) 89.8 fL 80-100 N MCH (test code = MCH) 28.8 pg 27.0-32.5 N MCHC (test code = MCHC) 32.1 g/dL 32.0-37.5 N RDW (test code = RDW) 13.8 % 11.5-14.5 N Platelet Count (test code = 190 K/cumm 140-440 N PLTCT) MPV (test code = MPV) 7.6 fL Diff Method (test code = DIFFM) Auto Neutrophil (test code = NEUT) 64.0 % 36-70 N Lymphocyte (test code = LYMPH) 28.1 % 12-44 N Monocyte (test code = MONO) 5.4 % 0-11 N Eosinophil (test code = EOS) 1.7 % 0-7 N Basophil (test code = BASO) 0.8 % 0-2 N Neutro Abs (test code = ANEUT) 3.1 K/cumm 1.6-7.4 N Lymph Abs (test code = ALYMPH) 1.4 K/cumm 0.5-4.6 N Attala Abs (test code = AMONO) 0.3 K/cumm 0.0-1.2 N Eos Abs (test code = AEOS) 0.08 K/cumm 0.00-0.74 N Baso Abs (test code = ABASO) 0.0 K/cumm 0.00-0.21 N US CAROTID DUPLEX SCAN, [id number] 16:32:15CAROTID DOPPLER CLINICAL HISTORY: PREOP CABG STUDYTECHNIQUE: Zaman-scale, color, and duplex sonography of theextracranial carotid vessels was performed. Maximum peak systolicvelocities were obtained.FINDINGS: Right side: Plaque: Mild calcific plaque in the carotid bulb and proximal ICA withless than 50% stenosis.Peak systolic velocities (cm/sec): CCA: 111 ICA: 64.9ICA/CCA ratio: 0.59Vertebral artery: Antegrade flowLeft side: Plaque: Minimal intimal thickening.Peak systolic velocities (cm/sec): CCA: 87.3 ICA: 90.8ICA/CCA ratio: 1.04Vertebral artery: Antegrade flowIMPRESSION: 1. Right internal carotidartery: Less than 50% stenosis2. Left internal carotid artery: Normal (no significant stenosis)3. Vertebral arteries: Antegrade flow with normal waveformsbilaterally.Society of Radiologists in Ultrasound (SRU) consensus statement(Radiology 2003; 229:340-346. DOI 10.1148/radiol.8194298517) was used toestimate internal carotid artery stenosis.Location: R16XR CHEST 1 [id number] 15:18:28EXAM: CHEST ONE VIEWINDICATION: PreopCOMPARISON: None availableTECHNIQUE: AP view of the chest.FINDINGS: The cardiomediastinal silhouette is normal. There is evidence of priorthoracic surgery. The lungs are clear bilaterally. No pneumothorax orpleural effusion is identified. The osseous structures are unremarkable.IMPRESSION: No acute cardiopulmonary process.LOCATION: R16 Prothrombin [id number] 21:30:00 Test Item Value Reference Range Interpretation Comments PT (test code = PT) 9.10 seconds 9.78-13.35 L INR (test code = INR) 0.80 Ratio 0.6-1.2 N Partial Thromboplastin [id number] 21:30:00 Test Item Value Reference Range Interpretation Comments aPTT (test code = PTT) 30.90 seconds 24.39-37.25 N CBC with [id number] 21:19:00 Test Item Value Reference Range Interpretation Comments WBC (test code = WBC) 6.3 K/cumm 4.4-10.5 N RBC (test code = RBC) 4.84 M/cumm 4.10-5.70 N Hemoglobin (test code = HGB) 14.1 gm/dL 13.4-17.4 N Hematocrit (test code = HCT) 46.0 % 38.7-52.0 N MCV (test code = MCV) 95.1 fL 80-100 N MCH (test code = MCH) 29.1 pg 27.0-32.5 N MCHC (test code = MCHC) 30.6 g/dL 32.0-37.5 L RDW (test code = RDW) 14.1 % 11.5-14.5 N Platelet Count (test code = 210 K/cumm 140-440 N PLTCT) MPV (test code = MPV) 9.2 fL Diff Method (test code = DIFFM) Auto Neutrophil (test code = NEUT) 64.0 % 36-70 N Lymphocyte (test code = LYMPH) 30.4 % 12-44 N Monocyte (test code = MONO) 4.2 % 0-11 N Eosinophil (test code = EOS) 0.7 % 0-7 N Basophil (test code = BASO) 0.7 % 0-2 N Neutro Abs (test code = ANEUT) 4.0 K/cumm 1.6-7.4 N Lymph Abs (test code = ALYMPH) 1.9 K/cumm 0.5-4.6 N Attala Abs (test code = AMONO) 0.3 K/cumm 0.0-1.2 N Eos Abs (test code = AEOS) 0.05 K/cumm 0.00-0.74 N Baso Abs (test code = ABASO) 0.0 K/cumm 0.00-0.21 N Hypochromic (test code = HYPO) Slight Comprehensive Metabolic [id number] 20:54:00 Test Item Value Reference Range Interpretation Comments Sodium (test code = 137 mmol/L 135-145 N NA) Potassium (test 3.6 mmol/L 3.5-5.1 N code = K) Chloride (test code 97 mmol/L 98-105 L = CL) Carbon Dioxide 27 mmol/L 22-29 N (test code = CO2) Glucose (test code 99 mg/dL 70-115 N = GLU) Blood Urea Nitrogen 11 mg/dL 6-20 N (test code = BUN) Creatinine (test 1.4 mg/dL 0.7-1.2 H code = CREAT) Calcium (test code 9.2 mg/dL 8.3-10.5 N = CA) Prot Total (test 7.3 g/dL 6.4-8.3 N code = TP) Albumin (test code 4.8 g/dL 3.5-5.2 N = ALB) A/G Ratio (test 1.9 Ratio code = AGRATIO) Globulin (test code 2.5 2.9-3.1 L = GLOB) Bili Total (test 0.3 mg/dL 0.1-0.9 N code = TBIL) Alk Phos (test code 77 U/L 40-129 N = APHOS) AST (test code = 16 U/L 1-40 N AST) ALT (test code = 21 U/L 1-41 N ALT) BUN/Creatinine 7.9 Ratio (test code = BCRATIO) Anion Gap (test 13 mmol/L 7-16 N code = AGAP) Estimated GFR (test 57 eGFR (es timated code = GFR) mL/min/1.73m2 Glomerular Curry tration Rate) is an est imated value,calculate d from the patient's s chelle creatinine usin g the MDRD equation.I t is NOT the patient 's actual GFR. The eGFR provides a more clinicallyusefu l measure of kidn ey disease than se rum creatinine alone.This calculation tomas es sex and race into account, if the informationis provided. If th e race is not provided , and the patient isAfrican-Ameri can, multiply by 1.2 12. If sex is not prov ided, and thepatient is female, multipl y by 0.742. Results for patients <18 ye ars ofage have not been validated by frances juan MDRD study and joy sales be interpretedwith caution.eGFR Re sult Interpretation: eGFR > or = 60 is in t he Normal RangeeGF R < 60 may mean kidney diseaseeGFR < 1 5 may mean kidney failureRange s recommended by the National Kidney Foundation,http ://nkd ep.nih.gov Lipid [id number] 20:54:00 Test Item Value Reference Range Interpretation Comments Cholesterol (test 217 mg/dL 0-200 H code = CHOL) Triglycerides (test 430 mg/dL 9-200 H code = TRIG) HDL (test code = 34 mg/dL 40-60 L HDL) Chol/HDL (test code 6.4 Ratio 0.0-5.0 H = CHOLPHDL) LDL, Calculated No Calc 0-130 N (NOTE)RISK O F HEART (test code = LDLC) DISEASEPu blished by [place] Heart AssociationAnal yte Optimal Boderli ne Increased RiskC HOL <200 200-239 >240TRI G <150 150-199 >200HDL Male: >60 <40HDL Fema le: >60 <50LDL <100 130 -159 >160LDL NEAR OP TIMAL IS 100-129\LIPIDNC VLDL (test code = No Calc 5-40 N \LIPIDNC VLDL) mg/dL LDL/HDL (test code = No Calc \LIPIDN C LDLPHDL) CBC with [id number] 22:43:00 Test Item Value Reference Range Interpretation Comments WBC (test code = WBC) 6.4 K/cumm 4.4-10.5 N RBC (test code = RBC) 5.37 M/cumm 4.10-5.70 N Hemoglobin (test code = HGB) 15.1 gm/dL 13.4-17.4 N Hematocrit (test code = HCT) 47.0 % 38.7-52.0 N MCV (test code = MCV) 87.5 fL 80-100 N MCH (test code = MCH) 28.2 pg 27.0-32.5 N MCHC (test code = MCHC) 32.2 g/dL 32.0-37.5 N RDW (test code = RDW) 15.4 % 11.5-14.5 H Platelet Count (test code = 177 K/cumm 140-440 N PLTCT) MPV (test code = MPV) 9.4 fL Diff Method (test code = DIFFM) Auto Neutrophil (test code = NEUT) 63.5 % 36-70 N Lymphocyte (test code = LYMPH) 26.0 % 12-44 N Monocyte (test code = MONO) 7.9 % 0-11 N Eosinophil (test code = EOS) 1.5 % 0-7 N Basophil (test code = BASO) 1.0 % 0-2 N Neutro Abs (test code = ANEUT) 4.1 K/cumm 1.6-7.4 N Lymph Abs (test code = ALYMPH) 1.7 K/cumm 0.5-4.6 N Attala Abs (test code = AMONO) 0.5 K/cumm 0.0-1.2 N Eos Abs (test code = AEOS) 0.10 K/cumm 0.00-0.74 N Baso Abs (test code = ABASO) 0.1 K/cumm 0.00-0.21 N Comprehensive Metabolic [id number] 22:41:00 Test Item Value Reference Range Interpretation Comments Sodium (test code = 139 mmol/L 135-145 N NA) Potassium (test 4.0 mmol/L 3.5-5.1 N code = K) Chloride (test code 98 mmol/L 98-105 N = CL) Carbon Dioxide 29 mmol/L 22-29 N (test code = CO2) Glucose (test code 99 mg/dL 70-115 N = GLU) Blood Urea Nitrogen 11 mg/dL 6-20 N (test code = BUN) Creatinine (test 1.3 mg/dL 0.7-1.2 H code = CREAT) Calcium (test code 9.3 mg/dL 8.3-10.5 N = CA) Prot Total (test 7.4 g/dL 6.4-8.3 N code = TP) Albumin (test code 4.7 g/dL 3.5-5.2 N = ALB) A/G Ratio (test 1.7 Ratio code = AGRATIO) Globulin (test code 2.7 2.9-3.1 L = GLOB) Bili Total (test 0.6 mg/dL 0.1-0.9 N code = TBIL) Alk Phos (test code 83 U/L 40-129 N = APHOS) AST (test code = 17 U/L 1-40 N AST) ALT (test code = 22 U/L 1-41 N ALT) BUN/Creatinine 8.5 Ratio (test code = BCRATIO) Anion Gap (test 12 mmol/L 7-16 N code = AGAP) Estimated GFR (test >60 eGFR (es timated code = GFR) mL/min/1.73m2 Glomerular Curry tration Rate) is an est imated value,calculate d from the patient's s chelle creatinine usin g the MDRD equation.I t is NOT the patient 's actual GFR. The eGFR provides a more clinicallyusefu l measure of kidn ey disease than se rum creatinine alone.This calculation tomas es sex and race into account, if the informationis provided. If th e race is not provided , and the patient isAfrican-Ameri can, multiply by 1.2 12. If sex is not prov ided, and thepatient is female, multipl y by 0.742. Results for patients <18 ye ars ofage have not been validated by th e MDRD study and shoul d be interpretedwith caution.eGFR Re sult Interpretation: eGFR > or = 60 is in t he Normal RangeeGF R < 60 may mean kidney diseaseeGFR < 1 5 may mean kidney failureRange s recommended by the [employer] Kid[employer] Foundation,http ://nkd ep.nih.gov Lipid Odmpcyl5372-62-97 22:41:00 Test Item Value Reference Range Interpretation Comments Cholesterol (test 197 mg/dL 0-200 N code = CHOL) Triglycerides (test 254 mg/dL 9-200 H Unable t o calculate, code = TRIG) Trig >400 HDL (test code = 37 mg/dL 40-60 L HDL) Chol/HDL (test code 5.3 Ratio 0.0-5.0 H = CHOLPHDL) LDL, Calculated 109 mg/dL 0-130 N (NOTE)RISK O F HEART (test code = LDLC) DISEASEPu blished by [place] Heart AssociationAnal yte Optimal Boderli ne Increased RiskC HOL <200 200-239 >240TRI G <150 150-199 >200HDL Male: >60 <40HDL Fem reginald: >60 <50LDL <100 130 -159 >160LDL NEAR OP [facility] IS 100-129 VLDL (test code = 51 mg/dL 5-40 H VLDL) LDL/HDL (test code = 3 LDLPHDL)
--- NOTE | 2022-07-26 08:04 | ER ---
Nurse's Notes [facility] Name: Arron Lea Age: 52 yrs Sex: Male : 1970 Arrival Date: 07/26/2022 Time: 07:42 Bed 20 Private MD: Diagnosis: Unspecified internal derangement of right knee Presentation: 07/26 07:37 Chief complaint: Patient states: R knee pain and swelling the past two day since ll1 falling onto it. Coronavirus screen: Vaccine status: Patient reports receiving the 2nd dose of the covid vaccine. Client denies travel out of the [place] in the last 14 days. At this time, the client does not indicate any symptoms associated with coronavirus-19. Ebola Screen: Patient denies travel to an Ebola-affected area in the 21 days before illness onset. Initial Sepsis Screen: Does the patient meet any 2 criteria? No. Patient's initial sepsis screen is negative. Does the patient have a suspected source of infection? Yes: Bone or joint infection. Risk Assessment: Do you want to hurt yourself or someone else? Patient reports no desire to harm self or others. Onset of symptoms was July 24, 2022. 07:37 Method Of Arrival: Wheelchair ll1 07:37 Acuity: PRICE 3 ll1 Triage Assessment: 07:46 General: Appears uncomfortable, Behavior is calm, cooperative, appropriate for age. ll1 Pain: Complains of pain in right leg Pain currently is 10 out of 10 on a pain scale. Quality of pain is described as aching, throbbing, Aggravated by increased activity, weight bearing. Musculoskeletal: Circulation, motion, and sensation intact. Capillary refill < 3 seconds, Swelling present in R knee. Injury Description: s/p fall. Historical: - Allergies: 07:36 Allopurinol; ll1 07:36 Sulfa (Sulfonamide Antibiotics); ll1 07:36 Bees; ll1 - PMHx: 07:36 Hypertensive disorder; Hypercholesterolemia; Coronary atherosclerosis; GERD; ll1 - PSHx: 07:36 2 open heart SX 12 stents; valve replacement; stomach SX for acid reflux; ll1 - Immunization history:: Client reports receiving the 2nd dose of the Covid vaccine. - Social history:: Smoking status: Patient denies any tobacco usage or history of. Screenin:[facility] Fall Risk Assessment (Adult) History of falling in the last 3 months, ll1 including since admission Yes- single mechanical fall (1 pt) Impaired Gait Yes (1 pt) Mobility Assist Device Used Yes (1 pt) Score/Fall Risk Level 3 or more points = High Risk Oriented to surroundings, Maintained a safe environment, Educated pt \T\ family on fall prevention, incl call for assistance when getting out of bed, Hourly rounding (assess needs \T\ fall precautionary measures) done. Abuse screen: Denies threats or abuse. Nutritional screening: No deficits noted. Tuberculosis screening: No symptoms or risk factors identified. Fall Risk. Assessment: 08:15 Reassessment: No changes from previously documented assessment. Patient and/or family ll1 updated on plan of care and expected duration. Pain level reassessed. Patient is alert, oriented x 3, equal unlabored respirations, skin warm/dry/pink. 08:32 Reassessment: No changes from previously documented assessment. Patient and/or family ll1 updated on plan of care and expected duration. Pain level reassessed. Patient states feeling better. 08:45 Reassessment: No changes from previously documented assessment. Patient and/or family ll1 updated on plan of care and expected duration. Pain level reassessed. Patient is alert, oriented x 3, equal unlabored respirations, skin warm/dry/pink. Vital Signs: 07:37 BP 138 / 73; Pulse 71; Resp 17; Temp 98.3; Pulse Ox 97% on R/A; Height 6 ft. 2 in. ll1 (187.96 cm); Pain 10/10; 08:10 BP 124 / 75; Pulse 71; Resp 16; Pulse Ox 97% on R/A; Pain 10/10; ll1 08:30 BP 108 / 72; Pulse 66; Resp 15; Pulse Ox 95% on R/A; Pain 3/10; ll1 08:46 BP 113 / 72; Pulse 70; Resp 15; Pulse Ox 95% ; ll1 ED Course: 07:35 Arm band placed on Patient placed in an exam room, on a stretcher. ll1 07:42 Patient arrived in ED. rg4 07:46 Hemant Toth MD is Attending Physician. sp3 07:46 Triage completed. ll1 07:50 Salomón Mesa RN is Primary Nurse. ll1 07:50 Patient has correct armband on for positive identification. Bed in low position. Call ll1 light in reach. Client placed on continuous cardiac and pulse oximetry monitoring. NIBP monitoring applied. 07:50 No provider procedures requiring assistance completed. ll1 08:02 Knee Right 3 View XRAY In Process Unspecified. EDMS 08:05 Inserted saline lock: 22 gauge in right antecubital area, using aseptic technique. ll1 08:45 IV discontinued, intact, bleeding controlled, No redness/swelling at site. Pressure ll1 dressing applied. Administered Medications: 08:12 Drug: Zofran (Ondansetron) 4 mg Route: IVP; Site: right antecubital; ll1 08:33 Follow up: Response: No adverse reaction; Nausea is decreased; RASS: Alert and Calm (0) ll1 08:14 Drug: Dilaudid (HYDROmorphone) 1 mg Route: IVP; Site: right antecubital; ll1 08:33 Follow up: Response: No adverse reaction; Pain is decreased; RASS: Alert and Calm (0) ll1 Medication: 07:50 VIS not applicable for this client. ll1 Outcome: 08:03 Discharge ordered by . sp3 08:45 Discharged to home via wheelchair. ll1 08:45 Condition: stable 08:45 Discharge instructions given to patient, Instructed on discharge instructions, follow up and referral plans. Demonstrated understanding of instructions, follow-up care. 08:46 Patient left the ED. 1 Signatures: Dispatcher [employer] Laura Mckeon rg4 Salomón Mesa RN RN ll1 Hemant Toth MD MD sp3 Corrections: (The following items were deleted from the chart) 08:45 07:50 Patient did not have IV access during this emergency room visit. ll1 ll1
--- NOTE | 2022-07-26 08:04 | EDPHYS ---
Physician Documentation [facility] Name: Arron Lea Age: 52 yrs Sex: Male : 1970 Arrival Date: 07/26/2022 Time: 07:42 Bed 20 Private MD: ED Physician Hemant Toth HPI: 07/26 07:59 This 52 yrs old Male presents to ER via Wheelchair with complaints of Knee Pain. sp3 07:59 52-year-old male with history of hypertension and hyperlipidemia presents with right sp3 knee swelling and pain x4 days. Patient states that he twisted and went to local urgent care who put him in a knee immobilizer and he has follow-up on Wednesday for orthopedics and MRI. Patient cannot wait that long due to pain and so attempted to come here for emergent MRI and pain control. He denies any numbness tingling distally and he is able to walk with crutches and knee immobilizer. No other symptoms and ROS is otherwise negative.. Historical: - Allergies: 07:36 Allopurinol; ll1 07:36 Sulfa (Sulfonamide Antibiotics); ll1 07:36 Bees; ll1 - PMHx: 07:36 Hypertensive disorder; Hypercholesterolemia; Coronary atherosclerosis; GERD; ll1 - PSHx: 07:36 2 open heart SX 12 stents; valve replacement; stomach SX for acid reflux; ll1 - Immunization history:: Client reports receiving the 2nd dose of the Covid vaccine. - Social history:: Smoking status: Patient denies any tobacco usage or history of. ROS: 08:01 Constitutional: Negative for fever, chills, and weight loss, Eyes: Negative for injury, sp3 pain, redness, and discharge, Neck: Negative for injury, pain, and swelling, Cardiovascular: Negative for chest pain, palpitations, and edema, Respiratory: Negative for shortness of breath, cough, wheezing, and pleuritic chest pain, Abdomen/GI: Negative for abdominal pain, nausea, vomiting, diarrhea, and constipation, Back: Negative for injury and pain, Skin: Negative for injury, rash, and discoloration, Neuro: Negative for headache, weakness, numbness, tingling, and seizure. 08:01 All other systems are negative. Exam: 08:01 Constitutional: This is a well developed, well nourished patient who is awake, alert, sp3 and in no acute distress. Head/Face: Normocephalic, atraumatic. Neck: Trachea midline, no thyromegaly or masses palpated, and no cervical lymphadenopathy. Supple, full range of motion without nuchal rigidity, or vertebral point tenderness. No Meningismus. Chest/axilla: Normal chest wall appearance and motion. Nontender with no deformity. No lesions are appreciated. Cardiovascular: Regular rate and rhythm with a normal S1 and S2. No gallops, murmurs, or rubs. Normal PMI, no JVD. No pulse deficits. Respiratory: Lungs have equal breath sounds bilaterally, clear to auscultation and percussion. No rales, rhonchi or wheezes noted. No increased work of breathing, no retractions or nasal flaring. Abdomen/GI: Soft, non-tender, with normal bowel sounds. No distension or tympany. No guarding or rebound. No evidence of tenderness throughout. Back: No spinal tenderness. No costovertebral tenderness. Full range of motion. Skin: Warm, dry with normal turgor. Normal color with no rashes, no lesions, and no evidence of cellulitis. Neuro: Awake and alert, GCS 15, oriented to person, place, time, and situation. Cranial nerves II-XII grossly intact. Motor strength 5/5 in all extremities. Sensory grossly intact. Cerebellar exam normal. Normal gait. Psych: Awake, alert, with orientation to person, place and time. Behavior, mood, and affect are within normal limits. 08:01 Musculoskeletal/extremity: Knee effusion is present without any laxity in the joints. Clinically no fractures present.. Vital Signs: 07:37 BP 138 / 73; Pulse 71; Resp 17; Temp 98.3; Pulse Ox 97% on R/A; Height 6 ft. 2 in. ll1 (187.96 cm); Pain 10/10; 08:10 BP 124 / 75; Pulse 71; Resp 16; Pulse Ox 97% on R/A; Pain 10/10; ll1 08:30 BP 108 / 72; Pulse 66; Resp 15; Pulse Ox 95% on R/A; Pain 3/10; ll1 08:46 BP 113 / 72; Pulse 70; Resp 15; Pulse Ox 95% ; ll1 MDM: 07:49 Patient medically screened. sp3 08:02 Data reviewed: vital signs, nurses notes. ED course: 52-year-old male with right knee sp3 internal derangement. X-rays negative for any fracture. We will attempt pain control with IV Dilaudid and Zofran. Patient already has orthopedics and MRI scheduled for Wednesday. I have explained to patient that emergent MRI is not available at this time for the current indication.. 07/26 07:47 Order name: Knee Right 3 View XRAY sp3 07/26 07:58 Order name: IV Saline Lock; Complete Time: 07:58 sp3 Administered Medications: 08:12 Drug: Zofran (Ondansetron) 4 mg Route: IVP; Site: right antecubital; ll1 08:33 Follow up: Response: No adverse reaction; Nausea is decreased; RASS: Alert and Calm (0) ll1 08:14 Drug: Dilaudid (HYDROmorphone) 1 mg Route: IVP; Site: right antecubital; ll1 08:33 Follow up: Response: No adverse reaction; Pain is decreased; RASS: Alert and Calm (0) ll1 Disposition Summary: 07/26/22 08:03 Discharge Ordered Location: Home sp3 Condition: Stable sp3 Diagnosis - Unspecified internal derangement of right knee sp3 Followup: sp3 - With: Private Physician - When: Upon discharge from the Emergency Department - Reason: Continuance of care Discharge Instructions: - Discharge Summary Sheet sp3 - Knee Effusion sp3 Forms: - Medication Reconciliation Form sp3 - Thank You Letter sp3 - Antibiotic Education sp3 - Prescription Opioid Use sp3 Signatures: Dispatcher [employer] EDSalomón Mas, ELOISA RN 1 Hemant Toth MD MD sp3
[2022-07-26] MEDS ORDERED: ONDANSETRON 4 MG/2 ML VIAL ONE (08:11)
[2022-07-26] MEDS ORDERED: HYDROMORPHONE HCL 1 MG/ML INJ ONE (08:11)
--- NOTE | 2022-07-26 08:16 | RAD REPORT ---
EXAM DESCRIPTION: RAD - Knee Right 3 View - 07/26/2022 8:01 am CLINICAL HISTORY: SMASH INJURY COMPARISON: No comparisons FINDINGS: No fracture, dislocation or periosteal reaction.Large joint effusion is present. No lipohe marthrosis identifiable. Marginal spurring is seen in the medial compartment. There are spurs along t he articular margin of the patella with spurring also present at the quadriceps attachment to the pat ubaldo and patella tendon insertion to the tibia. Surgical clips are seen in the soft tissues medial to the tibia. No foreign body or suspicious soft t issue finding. IMPRESSION: Large joint effusion without lipoma hemarthrosis identified. Degenerative marginal spurring involving the patella and medial compartment. No acute bone finding. Clinical concerns for internal derangement or occult bony injury could be further assessed with follo w-up outpatient MR imaging.
[2022-07-26 09:13] VITALS: TEMP 98.3
[2022-07-26 09:16] VITALS: O2SAT 95
[2022-07-26 09:17] VITALS: BP 113/72
== END 2022-07-26 08:46 | disposition home or self-care (01) ==
LOC: ER 07:36
DX: M23.91 Unspecified internal derangement of right knee (principal); Z88.2 Allergy status to sulfonamides; Z88.8 Allergy status to other drugs, medicaments and biological substances; Z91.030 Bee allergy status
CPT/HCPCS: 73562; 96375; 96374; 99284; J1170; J2405